=== PATIENT | male | born 2000 | race Two or more races ===

== ENCOUNTER 2020-06-25 11:47 | Emergency (ER) | payer OTHER, SELFPAY ==
--- NOTE | 2020-06-25 | ECG_ITS ---
Test Reason : ATHSMA Blood Pressure : / mmHG Vent. Rate : 077 BPM Atrial Rate : 077 BPM P-R Int : 154 ms QRS Dur : 094 ms QT Int : 344 ms P-R-T Axes : 025 067 026 degrees QTc Int : 389 ms Normal sinus rhythm with sinus arrhythmia RSR' or QR pattern in V1 suggests right ventricular conduction delay Otherwise normal ECG When compared with ECG of 21-DEC-2006 14:40, PREVIOUS ECG IS PRESENT pt was 6yo Referred By: David Hargrove Electronically Signed By:FAN ZEPEDA MD
--- NOTE | 2020-06-25 | XR_ITS ---
EXAMINATION: XR CHEST CLINICAL INFORMATION: Cough and chills. History of asthma. COMPARISON: Previous chest x-rays most recent November 2019 TECHNIQUE: 2 views of the chest were obtained. FINDINGS: No significant abnormality is noted involving the heart, lungs, mediastinum, bony thorax or soft tissues. IMPRESSION: Unremarkable examination.
[2020-06-25 11:56] VITALS: BP 145/89; PULSE 92; RESP 18; TEMP 37.5; O2SAT 97; BMI 43.3
--- NOTE | 2020-06-25 12:21 | ED.ASTHMA ---
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 Positive chills but no fever. No recent travel. No recent antibiotic. No recent hospitalization. MD complaint: asthma attack , shortness of breath and wheezing Onset (ago): day(s) Context: recent URI Associated symptoms: productive cough Asthma History: history of frequent attacks and history of prior ED visit Treatments Prior to Arrival: inhaled bronchodilator Related Data Current Asthma Therapy: inhaled bronchodilator Home Medications Medication Instructions Recorded Confirmed albuterol sulfate 1 vial INHALATION Q4H PRN 06/25/20 06/25/20 albuterol sulfate 2 puff PO Q4H PRN 06/25/20 06/25/20 fluticasone propion-salmeterol 2 puff PO BID 06/25/20 06/25/20 fluticasone propionate 2 spray INTRANASAL DAILY 06/25/20 06/25/20 inhalational spacing device 06/25/20 06/25/20 [Aerochamber Plus Flow-Vu] Previous Rx's Medication Instructions Recorded benzonatate [Tessalon Perles] 100 mg PO BID PRN #14 cap 06/25/20 prednisone 60 mg PO DAILY 5 Days #15 tab 06/25/20 Allergies Allergy/AdvReac Type Severity Reaction Status Date / Time peach [PEACH] Allergy Unknown ANAPHYLAXIS Unverified 06/04/20 16:55 Review of Systems Review of Systems: Constitutional: No Weight loss, No Fever, + Chills, No Night Sweats, No Fatigue, No Malaise ENT/Mouth: No Hearing loss, No Ear Pain, + Nasal Congestion, No Sinus Pain, No Hoarseness, No sore throat, + Rhinorrhea, No Swallowing Difficulty Eyes: No Eye Pain, No Swelling, No Redness, No Foreign Body, No Discharge, No Vision Changes Cardiovascular: + Chest Pain with cough, No SOB, No Dyspnea on Exertion, No Orthopnea, No Edema, No Palpitations Respiratory: + Cough, + greenish Sputum, + Wheezing, No Smoke Exposure, No Dyspnea Gastrointestinal: No Nausea, No Vomiting, No Diarrhea, No Constipation, No abdominal Pain, No Hematochezia, No Melena Genitourinary: no irregular bleeding, No Dysuria, No Urinary Frequency, No Hematuria, No Urinary Incontinence, No Urgency, No Flank Pain, No Urinary Flow Changes, No Hesitancy Musculoskeletal: No joint pain, No Myalgias, No Joint Swelling Skin: No Skin Lesions, No rash Neuro: No Weakness, No Numbness, No Paresthesias, No Loss of Consciousness, No Dizziness, No Headache Psych: No Anxiety/Panic, No Depression, No SI/HI/AH/VH, No Social Issues, Heme/Lymph: No Bruising, No Bleeding,No Lymphadenopathy Endocrine: No Polyuria, No Polydipsia, No Temperature Intolerance Yes all other systems are reviewed and are negative [facility] Past Medical History Attestation statement: The following information was validated with the patient. Medical History (Updated 06/25/20 @ 15:21 by David Hargrove NP) Asthma Social History Social History Smoked in Last 30 Days: No Advance Directives: No Advance Directives Information Provided: No Physical Exam Vital Signs and I&O and Narrative: Vital Signs and I&O: Vital Signs Temp 99.4 F 06/25/20 14:30 Pulse 102 H 06/25/20 14:30 Resp 16 06/25/20 14:30 BP 129/83 06/25/20 14:30 Pulse Ox 97 06/25/20 11:56 Intake & Output 06/24/20 06/25/20 06/25/20 18:59 06:59 18:59 Weight 118.079 kg Body Mass Index 43.3 Const: General: cooperative, healthy appearing and no acute distress; No intoxicated appearing Nutritional Appearance: overweight Orientation/consciousness: patient oriented x3 HENMT: Head: Yes normal to inspection Ears: hearing grossly normal bilaterally General nose exam: Nasal discharge present Eyes: General: appearance normal, both eyes and all related structures Visual Carroll: normal visual carroll by confrontation Neck: Neck: Yes normal visual inspection and No tender Thyroid: Thyroid normal Chest: Chest palpation & inspection: normal inspection of the chest Resp: Effort & Inspection: normal respiratory effort and Actively coughing Auscultation: wheezes ( Mild diffuse) Cardio: Jugular venous distension: no JVD GI: Inspection: Yes normal to inspection Percussion: Yes normal to percussion Auscultation: normal bowel sounds : General: Yes no CVA tenderness Back/Spine/Pelvis: Back: no CVA tenderness Skin: General skin exam: no rashes or lesions noted Neuro: General: patient oriented x3 Extrem: General: Yes normal to inspection Course Course Course Narrative: feels much better after DuoNeb and prednisone. Lung sounds clear to auscultation. Chest x-ray negative. Lab work otherwise unremarkable. COVID-19 as well as influenza is pending will go home with precaution return follow-up instructions. Prescription of prednisone sent to his pharmacy as well as cough medicine. He has inhaler and nebs at home. Well nontoxic appearing. No signs or symptoms systemic infection. Stable for discharge. MDM - Asthma MDM Narrative Medical decision making narrative: interview 20-year-old male with history of asthma presenting with exacerbation in the setting of recent URI symptoms. According to patient has had numerous hospitalization but not the worst episode today. Will check chest x-ray, basic labs, EKG and treat with nebs, oral steroids. No signs or symptoms of systemic infection. Afebrile. Nontoxic. Pulse ox 98-99% on room air. In no acute distress. Will monitor and dispo per plan. Differential Diagnosis Differential diagnosis: Likely Acute exacerbation, Acute asthmatic bronchitis and Pneumonia; Unlikely Status asthmaticus, PE, COPD exacerbation, Pulmonary edema systolic, Pulmonary edema dystolic, ARDS, Pneumothorax and Foreign body in trachea Medical Records Attestation: I reviewed the patient's medical records. Lab Data Result diagrams: 06/25/20 14:56 06/25/20 12:57 Labs: Lab Results 06/25/20 06/25/20 06/25/20 Range/Units 12:57 12:57 14:56 WBC 9.9 (4.8-10.8) X10*3/uL RBC 5.16 (4.60-5.80) X10*6/uL Hgb 15.4 (14.0-18.0) g/dl Hct 46.3 (42-52) % MCV 89.7 (80-98) fL MCH 29.8 (27.0-33.0) pg MCHC 33.3 (31.0-36.0) g/dl RDW 13.9 (11.0-16.0) % Plt Count 358 (160-400) X10*3/uL MPV 10.1 (9.4-12.4) fL Immature Gran % (Auto) 0.4 (0.0-0.4) % Neut % (Auto) 75.5 H (45-73) % Lymph % (Auto) 13.5 L (20-40) % Bulloch % (Auto) 4.1 (2-11) % Eos % (Auto) 5.9 H (0-4) % Baso % (Auto) 0.6 (0-2) % Lymph # (Auto) 1.3 (1.2-4.9) X10*3/uL Bulloch # (Auto) 0.4 (0.1-1.2) X10*3/uL Eos # (Auto) 0.6 H (0.0-0.4) X10*3/uL Baso # (Auto) 0.1 (0.0-0.2) X10*3/uL Abs Immat Gran (auto) 0.04 H (0.00-0.03) X10*3/uL Absolute Neuts (auto) 7.5 (2.0-8.3) X10*3/uL Absolute Nucleated RBC 0.000 (0.0-0.012) X10*3/uL Nucleated RBC % (auto) 0.0 (0.0-0.2) /100WBC Sodium 138 (135-145) mmol/L Potassium 4.6 (3.3-5.1) mmol/l Chloride 106 (96-108) mmol/L Carbon Dioxide 24 (22-29) mmol/L Anion Gap 13 (12-20) BUN 11 (9-16) mg/dL Creatinine 0.79 (0.5-1.4) mg/dL Estim Creat Clear Calc 177.4 Estimated GFR > 60 Random Glucose 103 (60-115) mg/dL Calcium 9.5 (8.4-10.2) mg/dL Troponin I High Sens < 3.5 (<3.5-35.0) ng/L Imaging Data Chest x-ray: Radiologist's impression: impression unremarkable examination Radiologist Dr. Tabares Discharge Plan Discharge Clinical Impression: Viral syndrome Asthma with acute exacerbation Qualifiers: Asthma severity: unspecified severity Asthma persistence: unspecified Qualified Code(s): J45.901 - Unspecified asthma with (acute) exacerbation Patient Disposition: Home, Self-Care Instructions: Asthma (ED) Additional Instructions: Based on your symptoms and history we have sent a COVID-19. Although your RESULT IS PENDING at this time. RESULTS should return within 72 hours. At this time you will be contacted with either NEGATIVE OR POSITIVE results. -Please wait until we contact you for your results. At this time you will be okay for discharge. Please plan for self quarantine for up to 14 days. Do not expose yourself to others. You may not go to work. If testing does come back negative you may return to activities as long as you are no longer having any symptoms for at least 3 days. Please continue to follow cold instructions and wash your hands frequently. You may take Tylenol as directed on the bottle for pain or fever. Patient seen in the emergency department on 03/13/2020 and should be excused from work until negative test results AND until 72 hours without any symptoms AND at least 10 days have passed since symptoms first appeared or since last exposure to COVID-19 positive patient CDC Guidelines for home isolation: - Stay away from others - WEAR A MASK if you are sick AND STAY HOME - Cover your mouth and nose with a tissue when you cough or sneeze. Dispose of tissues in a lined trash can and wash your hands immediately with soap and water for at least 20 seconds. If soap and water are not available, clean hands with alcohol-based hand residential child care counselor that contains at least 60% alcohol. - Clean your hands often with soap and water for at least 20 seconds - Avoid touching your eyes, nose and mouth with unwashed hands - Do not share dishes, drinking glasses, cups, eating utensils, towels, or bedding with other people in your home. After using these items, wash them thoroughly with soap and water or put in the tentering machine feeder. - Clean high-touch surfaces in your isolation area ( sick room and bathroom) every day; let a caregiver clean and disinfect high-touch surfaces in other areas of the home. Clean the area or item with soap and water or another detergent if it is dirty. Then, use a household disinfectant. - Limit contact with pets and animals: If you must care for a pet, wash your hands before and after interacting with them Prescriptions: New prednisone 20 mg tablet 60 mg PO DAILY 5 Days Qty: 15 RF: 0 benzonatate [Tessalon Perles] 100 mg capsule 100 mg PO BID PRN (Reason: cough) Qty: 14 RF: 0 No Action albuterol sulfate 2.5 mg /3 mL (0.083 %) solution for nebulization 1 vial inhalation Q4H PRN (Reason: wheezing) RF: 0 albuterol sulfate 90 mcg/actuation HFA aerosol inhaler 2 puff PO Q4H PRN (Reason: wheezing) RF: 0 fluticasone propionate 50 mcg/actuation spray,suspension 2 spray intranasal DAILY RF: 0 (DME) Aerochamber Plus Flow-Vu Spacer MISCELLANEOUS DIRECTED RF: 0 fluticasone propion-salmeterol 232-14 mcg/actuation aerosol powdr breath activated 2 puff PO BID RF: 0 Referrals: Mich Larry MD [Primary Care Provider] - 2 days
[2020-06-25] MEDS: predniSONE 20 MG TABLET 60 MG PO (12:58)
[2020-06-25 13:39] LABS: Anion Gap 13 (12-20); Blood Urea Nitrogen 11 mg/dL (9-16); Calcium 9.5 mg/dL (8.4-10.2); Carbon Dioxide 24 mmol/L (22-29); Chloride 106 mmol/L (96-108); Creatinine Clr Calc Pharmacy 177.4; Estimated Glomerular Filt Rate > 60; Glucose Random 103 mg/dL (60-115); Potassium 4.6 mmol/l (3.3-5.1); Sodium 138 mmol/L (135-145)
[2020-06-25] MEDS: Albuterol/Iprat 2.5/0.5MG 3 ML AMPUL.NEB INHALE (13:45)
[2020-06-25 13:47] LABS: Troponin-I High Sensitivity < 3.5 ng/L (<3.5-35.0)
[2020-06-25 14:30] VITALS: BP 129/83; PULSE 102; RESP 16; TEMP 37.4
[2020-06-25 15:02] LABS: MANUAL DIFF FLAG NO
[2020-06-25 15:06] LABS: Basophils Absolute Auto 0.1 X10*3/uL (0.0-0.2); Basophils Percent Auto 0.6 % (0-2); Eosinophils Absolute Auto 0.6 X10*3/uL (0.0-0.4); Eosinophils Percent Auto 5.9 % (0-4); Hematocrit 46.3 % (42-52); Hemoglobin 15.4 g/dl (14.0-18.0); Imm Gran Abs Auto 0.04 X10*3/uL (0.00-0.03); Imm Gran Pct Auto 0.4 % (0.0-0.4); Lymphocytes Absolute Auto 1.3 X10*3/uL (1.2-4.9); Lymphocytes Percent Auto 13.5 % (20-40); Mean Corpuscular HGB Conc 33.3 g/dl (31.0-36.0); Mean Corpuscular Hemoglobin 29.8 pg (27.0-33.0); Mean Corpuscular Volume 89.7 fL (80-98); Mean Platelet Volume 10.1 fL (9.4-12.4); Monocytes Absolute Auto 0.4 X10*3/uL (0.1-1.2); Monocytes Percent Auto 4.1 % (2-11); Neutrophils Absolute Auto 7.5 X10*3/uL (2.0-8.3); Neutrophils Percent Auto 75.5 % (45-73); Platelet Count 358 X10*3/uL (160-400); Red Blood Count 5.16 X10*6/uL (4.60-5.80); Red Cell Distribution Width 13.9 % (11.0-16.0); White Blood Count 9.9 X10*3/uL (4.8-10.8)
[2020-06-25 16:16] LABS: Influenza A PCR NEGATIVE (Negative); Influenza B PCR NEGATIVE (Negative)
[2020-06-25 16:17] LABS: Resp Syncy Virus RNA Qual PCR NEGATIVE (Negative)
== END 2020-06-25 15:42 | disposition home or self-care (01) ==
PROVIDERS: Nurse Practitioner Primary Care; Emergency Provider Internal Medicine; PCP Pediatrics
DX: B34.9 Viral infection, unspecified (principal); J45.901 Unspecified asthma with (acute) exacerbation; Z20.828 Contact with and (suspected) exposure to other viral communicable diseases; Z79.899 Other long term (current) drug therapy
CPT/HCPCS: 36415; 71046; 80048; 84484; 85025; 87631; 87635; 93005; 99284

== ENCOUNTER 2021-03-20 16:50 | Emergency (ER) | payer OTHER, SELFPAY ==
[2021-03-20 16:57] VITALS: BP 148/98; PULSE 93; RESP 18; TEMP 36.4; O2SAT 97; BMI 44.9
--- NOTE | 2021-03-20 17:30 | ED.GENADULT ---
HPI - General Adult General Chief complaint: General Medical Stated complaint: Rash Time Seen by Provider: 03/20/21 17:30 History of Present Illness HPI narrative: patient complains of itchy rash on both arms and somewhat on the legs, he saw primary doctor thought it was poison beny prescribed calamine lotion and now the rash is un improved and rash and itchiness or worse Related Data Home Medications Medication Instructions Recorded Confirmed albuterol sulfate 1 vial INHALATION Q4H PRN 06/25/20 06/25/20 albuterol sulfate 2 puff PO Q4H PRN 06/25/20 06/25/20 fluticasone propion-salmeterol 2 puff PO BID 06/25/20 06/25/20 fluticasone propionate 2 spray INTRANASAL DAILY 06/25/20 06/25/20 inhalational spacing device 06/25/20 06/25/20 [Aerochamber Plus Flow-Vu] Previous Rx's Medication Instructions Recorded benzonatate [Tessalon Perles] 100 mg PO BID PRN #14 cap 06/25/20 prednisone 60 mg PO DAILY 5 Days #15 tab 06/25/20 cetirizine 10 mg PO DAILY PRN #14 cap 03/20/21 hydrocortisone 1 appl TOPICAL BID PRN #20 g 03/20/21 prednisone 40 mg PO DAILY 4 Days #8 tab 03/20/21 Allergies Allergy/AdvReac Type Severity Reaction Status Date / Time peach [PEACH] Allergy Severe ANAPHYLAXIS Verified 03/20/21 16:56 Review of Systems Review of Systems: Positive for itchy rash on arms and legs Negatives are no fever no chills no dizziness or weakness no feeling faint no headache no neck pain no difficulty breathing and swallowing no shortness of breath no throat swelling no joint swelling Yes all other systems are reviewed and are negative PMFSH Past Medical History Source: nursing notes reviewed Medical History (Updated 03/21/21 @ 00:01 by Mickie Monroe) Asthma Social History Social History Advance Directives: No Advance Directives Information Provided: Yes Physical Exam Vital Signs: Vital Signs: Last Vital Signs Temp 97.6 F 03/20/21 16:57 Pulse 93 03/20/21 16:57 Resp 18 03/20/21 16:57 BP 148/98 H 03/20/21 16:57 Pulse Ox 97 03/20/21 16:57 Body Mass Index 44.9 General appearance no acute distress The eyes are not read no discharge The pharynx is clear with moist mucous membranes no swelling no exudate, voice is normal no redness no difficulty breathing or swallowing Neck is supple The chest is clear to auscultation bilateral no respiratory distress Heart no murmur Extremities full range of motion x4 Skin there is a linear vesicular rash on both arms with some excoriation, some mild rash on the legs as well Course Course Course Narrative: Rashes likely poison beny and patient is started on prednisone as symptoms have been worsening and getting more itchy and uncomfortable Well-appearing patient is discharged to follow with primary care Discharge Plan Discharge Clinical Impression: Dermatitis Patient Disposition: Home, Self-Care Additional Instructions: we are doing 4 days of steroid and Zyrtec for the rash Sometimes after the prednisone is done the rash may rebound so follow with primary doctor if that is the case for a longer does Return any time any worse condition Prescriptions: New cetirizine 10 mg capsule 10 mg PO DAILY PRN (Reason: rash and itch) Qty: 14 RF: 0 prednisone 20 mg tablet 40 mg PO DAILY 4 Days Qty: 8 RF: 0 hydrocortisone 2.5 % cream 1 appl topical BID PRN (Reason: itching) Qty: 20 RF: 0 No Action albuterol sulfate 2.5 mg /3 mL (0.083 %) solution for nebulization 1 vial inhalation Q4H PRN (Reason: wheezing) RF: 0 albuterol sulfate 90 mcg/actuation HFA aerosol inhaler 2 puff PO Q4H PRN (Reason: wheezing) RF: 0 fluticasone propionate 50 mcg/actuation spray,suspension 2 spray intranasal DAILY RF: 0 (DME) Aerochamber Plus Flow-Vu Spacer MISCELLANEOUS DIRECTED RF: 0 fluticasone propion-salmeterol 232-14 mcg/actuation aerosol powdr breath activated 2 puff PO BID RF: 0 prednisone 20 mg tablet 60 mg PO DAILY 5 Days Qty: 15 RF: 0 benzonatate [Tessalon Perles] 100 mg capsule 100 mg PO BID PRN (Reason: cough) Qty: 14 RF: 0 Interventions: ED Discharge Assessment Last Done: 03/20/21 17:55 Discharge Date/Time: 03/20/21 17:55
[2021-03-20] MEDS: predniSONE 20 MG TABLET 60 MG PO (17:53)
== END 2021-03-20 17:55 | disposition home or self-care (01) ==
PROVIDERS: Emergency Provider Internal Medicine; PCP Pediatrics
DX: L30.9 Dermatitis, unspecified (principal); J45.909 Unspecified asthma, uncomplicated; Z79.899 Other long term (current) drug therapy
CPT/HCPCS: 99283

== ENCOUNTER → 2021-12-29 09:38 | Outpatient (REF) | payer OTHER, SELFPAY ==
--- NOTE | 2021-12-29 09:43 | ECG_ITS ---
Test Reason : PRIMARY HYPERTENSION Blood Pressure : / mmHG Vent. Rate : 080 BPM Atrial Rate : 080 BPM P-R Int : 156 ms QRS Dur : 096 ms QT Int : 360 ms P-R-T Axes : 045 071 035 degrees QTc Int : 415 ms Normal sinus rhythm Normal ECG When compared with ECG of 25-JUN-2020 12:29, No significant change was found Referred By: Mich Larry Electronically Signed By:Hi Justice
== END ==
LOC: HO.CARD 09:38
PROVIDERS: PCP Pediatrics; Visit Provider Pediatrics
DX: I10 Essential (primary) hypertension (principal)
CPT/HCPCS: 93005

== ENCOUNTER 2023-06-08 10:32 | Emergency (ER) | payer OTHER, SELFPAY ==
--- NOTE | ~2023-06-08 | XR_ITS ---
EXAMINATION: XR CHEST CLINICAL INFORMATION: Shortness of breath and wheezing 06/25/2020 COMPARISON: None available. TECHNIQUE: Frontal view of the chest was obtained. FINDINGS: No significant abnormality is noted involving the heart, lungs, mediastinum, bony thorax or soft tissues. XR/XR chest 1V IMPRESSION: Unremarkable examination.
[2023-06-08 10:34] VITALS: BP 165/109; PULSE 110; RESP 19; TEMP 36.8; O2SAT 96; BMI 48.8
--- NOTE | 2023-06-08 11:07 | ED_ITS ---
HPI - Asthma General Chief Complaint: Upper Respiratory Symptoms Stated Complaint: asthma Time Seen by Provider: 06/08/23 11:00 Source: patient and family Mode of arrival: ambulatory Limitations: no limitations History of Present Illness HPI Narrative: 22 yo male with history of asthma presents to the ER for evaluation of SOB and wheezing that started 3 days ago. Unclear what triggers his asthma but he states it usually is the changes in the weather or environmental factors. He has been coughing and having tightness in his chest. No phelgm production. He usually only uses his albuterol inhaler as needed and recently ran out. No fever or chills. No known sick contacts. MD complaint: asthma attack , shortness of breath and wheezing Onset (ago): day(s) (3) Severity: moderate Context: ran out of meds and other (environment, change of weather) Associated symptoms: dry cough Asthma History: childhood onset Treatments Prior to Arrival: inhaled bronchodilator Related Data Current Asthma Therapy: inhaled bronchodilator Home Medications Medication Instructions Recorded Confirmed albuterol sulfate 2.5 mg/3 mL 1 vial inhalation Q4H PRN wheezing 06/25/20 06/25/20 (0.083 %) solution for nebulization albuterol sulfate 90 mcg/actuation 2 puff PO Q4H PRN wheezing 06/25/20 06/25/20 aerosol inhaler fluticasone 232 mcg-salmeterol 14 2 puff PO BID 06/25/20 06/25/20 mcg/actuation breath activated powdr fluticasone propionate 50 2 spray intranasal DAILY 06/25/20 06/25/20 mcg/actuation nasal spray,suspension inhalational spacing device 06/25/20 06/25/20 (Aerochamber Plus Flow-Vu) Previous Rx's Medication Instructions Recorded benzonatate 100 mg capsule 100 mg PO BID PRN cough #14 caps 06/25/20 (Osei Garcia) prednisone 20 mg tablet 60 mg (3 x 20 mg) PO DAILY 5 days 06/25/20 #15 tabs cetirizine 10 mg capsule 10 mg PO DAILY PRN rash and itch 03/20/21 #14 caps hydrocortisone 2.5 % topical cream 1 appl topical BID PRN itching #20 03/20/21 grams prednisone 20 mg tablet 40 mg (2 x 20 mg) PO DAILY 4 days 03/20/21 #8 tabs levalbuterol HCl 0.63 mg/3 mL 0.63 mg (3 mL) inhalation Q8H PRN 06/08/23 solution for nebulization shortness of breath or wheezing #72 mL prednisone 10 mg tablets in a dose See Taper PO DAILY #48 ea 06/08/23 pack Allergies Allergy/AdvReac Type Severity Reaction Status Date / Time peach [PEACH] Allergy Severe ANAPHYLAXIS Verified 06/08/23 10:34 Review of Systems Review of Systems: Yes all other systems are reviewed and are negative [facility] Past Medical History Medical History (Updated 06/08/23 @ 12:22 by SHI Doran) Asthma Social History Social History Advance Directives: No Physical Exam Vital Signs: Vital Signs: Last Vital Signs Temp 98.3 F 06/08/23 10:34 Pulse 88 06/08/23 11:26 Resp 16 06/08/23 11:26 BP 165/109 H 06/08/23 10:34 Pulse Ox 96 06/08/23 10:34 O2 Del Method Room Air 06/08/23 10:34 BMI result Body Mass Index 48.8 Appearance: Alert. Oriented X3. No acute distress. Head: normocephalic, atraumatic. Eyes: Pupils equal, round and reactive to light. ENT: Pharynx normal. No tonsillar swelling or exudate. Neck: Normal inspection. Neck supple. CVS: Tachycardic, regular rhythm. Pulses normal. Respiratory: No respiratory distress. Breath sounds with diffuse expiratory wheezes throughout, prolonged expiratory phase, no accessory muscle use Abdomen: Soft and nontender. +BS x4 Skin: Skin warm and dry. Normal skin color. Normal skin turgor. No rashes. Extremities: No lower extremity edema. No joint swelling. Neuro/psych: Oriented X 3. No motor deficit. No sensory deficit. CN II-XII intact. Normal speech and cognition. Medications Administered Discontinued Medications Generic Name Dose Route Start Last Admin Trade Name Freq PRN Reason Stop Dose Admin Albuterol Sulfate 2 puff 06/08/23 11:55 06/08/23 12:00 Albuterol Sulfate 90 Mcg 8 Gm Inhaler INHALE 06/08/23 11:56 2 puff ONCE ONE Administration Levalbuterol HCl 2.5 mg 06/08/23 11:18 06/08/23 11:28 Levalbuterol Hcl 1.25 Mg/3 Ml Vial.Neb INHALE 06/08/23 11:19 Not Given ONCE ONE Levalbuterol HCl 5 mg 06/08/23 11:21 06/08/23 11:25 Levalbuterol Hcl 1.25 Mg/3 Ml Vial.Neb INHALE 06/08/23 11:22 5 mg ONCE ONE Administration Prednisone 60 mg 06/08/23 11:17 06/08/23 11:22 Prednisone 20 Mg Tablet PO 06/08/23 11:18 60 mg ONCE ONE Administration Medical Decision Making Medical Decision Making MDM Narrative: 22 yo male presenting with asthma exacerbation x3 days. saturating well, breat everette comfortably but wheezy throughout. bronch protocol started - given xopenex and prednisone viral studies and CXR negative reassessed and wheezing significantly improved. comfortable w/ discharge home w/ prednisone and nebs. return precautions discussed Differential Diagnosis Differential Diagnoses: The differential diagnosis associated with the presentation includes acute asthma exacerbation, status asthmaticus, bronchitis, PNA, viral illness, environmental allergies Admission/Observation Consideration of admission/observation: Escalation of care including admission/observation considered Lab Data [facility] Lab Attestation statement: I reviewed the patient's lab results. Labs: Lab Results 06/08/23 Range/Units 11:12 Influenza Type A (PCR) NEGATIVE (Negative) Influenza Type B (PCR) NEGATIVE (Negative) RSV RNA Qual (PCR) NEGATIVE (Negative) SARS-CoV-2 RNA (RT-PCR) NEGATIVE (Negative) Independent Interpretation I performed an independent interpretation of an: Plain X-Ray Interpretation: no focal infiltrate or effusion Radiology Impression Discussion of test interpretation with radiology: I have reviewed the radiologist's reading. Radiologist Impression: EXAMINATION: XR CHEST CLINICAL INFORMATION: Shortness of breath and wheezing 06/25/2020 COMPARISON: None available. TECHNIQUE: Frontal view of the chest was obtained. FINDINGS: No significant abnormality is noted involving the heart, lungs, mediastinum, bony thorax or soft tissues. XR/XR chest 1V IMPRESSION: Unremarkable examination. Independent Historian Clinical information obtained from an independent historian. History obtained from or confirmed by: Parent External Record Review External record reviewed: Outpatient record, Prior outpatient labs and Prior outpatient radiology Prescription Management I considered prescription management with: Antibiotic and Other ( bronchodilator and steroid) Chronic Conditions Patient?s care impacted by: Other ( asthma) Critical Care Time Critical Care Time Critical Care Time: No Discharge Plan Discharge Clinical Impression: Asthma Qualifiers: Asthma severity: mild Asthma persistence: intermittent Asthma complication type: with acute exacerbation Qualified Code(s): J45.21 - Mild intermittent asthma with (acute) exacerbation Patient Disposition: Home, Self-Care Instructions: Asthma (DC) Additional Instructions: your x-ray did not show any obvious pneumonia, radiology read is still pending at the time of discharge. You tested negative for COVID, flu, RSV. Take the prescribed steroid taper as directed, start 1st thing tomorrow morning, your given 1st dose today in the emergency department. Use the albuterol nebulizers and inhaler as directed. Recommend following up with your primary care doctor and a qualifications examiner for further evaluation and treatment of your asthma. If you develop new or worsening symptoms call 911 or come back to the ER for further evaluation. Prescriptions: New levalbuterol HCl 0.63 mg/3 mL solution for nebulization 0.63 mg inhalation Q8H PRN (Reason: shortness of breath or wheezing) Qty: 72 0RF prednisone 10 mg tablets,dose pack See Taper PO DAILY Qty: 48 0RF Taper: Prednisone 40 mg daily for 3 Days and 0 Hour 30 mg daily for 3 Days and 0 Hour 20 mg daily for 3 Days and 0 Hour 10 mg daily for 3 Days and 0 Hour No Action albuterol sulfate 2.5 mg /3 mL (0.083 %) solution for nebulization 1 vial inhalation Q4H PRN (Reason: wheezing) albuterol sulfate 90 mcg/actuation HFA aerosol inhaler 2 puff PO Q4H PRN (Reason: wheezing) fluticasone propionate 50 mcg/actuation spray,suspension 2 spray intranasal DAILY (DME) Aerochamber Plus Flow-Vu Spacer MISCELLANEOUS DIRECTED fluticasone propion-salmeterol 232-14 mcg/actuation aerosol powdr breath activated 2 puff PO BID prednisone 20 mg tablet 60 mg PO DAILY 5 Days Qty: 15 0RF benzonatate [Tessalon Perles] 100 mg capsule 100 mg PO BID PRN (Reason: cough) Qty: 14 0RF cetirizine 10 mg capsule 10 mg PO DAILY PRN (Reason: rash and itch) Qty: 14 0RF prednisone 20 mg tablet 40 mg PO DAILY 4 Days Qty: 8 0RF hydrocortisone 2.5 % cream 1 appl topical BID PRN (Reason: itching) Qty: 20 0RF Referrals: [facility] [place] Pulmonology Services [Provider Group] (mild intermittent asthma requiring ER visit) Interventions: ED Discharge Assessment Last Done: 06/08/23 13:36 Discharge Date/Time: 06/08/23 13:36
[2023-06-08] MEDS: predniSONE 20 MG TABLET 60 MG PO (11:22)
[2023-06-08] MEDS: levalbuterol HCL 1.25 MG/3 ML VIAL.NEB 5 MG INHALE (11:25)
[2023-06-08 11:26] VITALS: PULSE 88; RESP 16; O2SAT 97
[2023-06-08 11:55] LABS: Influenza A PCR NEGATIVE (Negative); Influenza B PCR NEGATIVE (Negative); Resp Syncy Virus RNA Qual PCR NEGATIVE (Negative); SARS COV2 PCR INHOUSE NEGATIVE (Negative)
[2023-06-08] MEDS: Albuterol Sulfate 90 MCG 8 GM INHALER 2 PUFF INHALE (12:00)
== END 2023-06-08 13:36 | disposition home or self-care (01) ==
PROVIDERS: Physician Assistant; Emergency Provider Emergency Medicine
DX: J45.21 Mild intermittent asthma with (acute) exacerbation (principal); R06.02 Shortness of breath; Z20.822 Contact with and (suspected) exposure to COVID-19; Z20.828 Contact with and (suspected) exposure to other viral communicable diseases; Z79.899 Other long term (current) drug therapy
CPT/HCPCS: 0241U; 71045; 94640; 99283; 99284

== ENCOUNTER 2023-07-21 11:10 | Outpatient (AMB) | payer OTHER, SELFPAY ==
[2023-07-21 11:12] VITALS: BP 112/80; PULSE 90; O2SAT 97; BMI 44.3
--- NOTE | 2023-07-21 11:12 | MHC.PC.OV ---
Vital Signs 07/21/23 11:12 Height 5 ft 4 in Weight 258 lb 0.8 oz BMI 44.3 BP 112/80 Blood Pressure Location Lt brachial Position Sitting Pulse 90 Pulse Source Pulse Oximeter Pulse Oximetry (%) 97 Oxygen Delivery Method Room Air Intake Visit Reasons: [facility] [place] 06/08 F/U- asthma Intake Note: Patient is here to follow-up after a visit the emergency department at [facility] on 06/08/2023 for asthma Egg Grader Required: No Allergies peach [PEACH] Allergy (Severe, Verified 07/21/23 11:18) ANAPHYLAXIS Tobacco use date assessed: 07/21/23 Dental Screening Dental Screen Date: 07/21/23 Did you have a dental visit in the last 12 months?: Yes Did you have a dental problem in the last 6 months where you did not have access to dental care?: No Was dental information given to patient?: Patient has dentist HPI HPI Comments History of Present Illness Details 23-year-old male new patient, past medical history significant for asthma, seasonal allergy, vitamin-D deficiency. Previous patient [facility] not had a primary care provider a few years. Patient presents today for emergency room follow-up for shortness of breath and wheezing x3 day. It was unclear what triggered patient's asthma, however patient reports usually changes season or environmental factors can exacerbate his asthma. Chest x-ray unremarkable. Denied any sick contacts. Patient presents today to this appointment with his mother who reports patient previously on Advair HFA b.i.d. daily as well as uses Xopenex rescue inhaler and nebulizer solution as he has a history of tachycardia cause by using albuterol. Mom states that he ran out of his medications 1 year ago however patient has been using mom Xopenex inhaler 1-2 times daily as needed for shortness of breath and wheezing. Patient also requesting refill on loratadine for allergies. All refill sent to patient's pharmacy. Referral entered to establish care with pulmonology. [facility] Medical History (Updated 07/21/23 @ 11:35 by LUISITO Khan) Tachycardia Seasonal allergies Asthma Social History Patient Tobacco Use Status: Never used Tobacco Cognitive needs: No Hearing needs: No Vision needs: No Questionnaire PHQ-9 Over the last 2 weeks, how often have you been bothered by any of the following problems? 1. Little interest or pleasure in doing things: not at all 2. Feeling down, depressed, or hopeless: not at all 3. Trouble falling or staying asleep, or sleeping too much: not at all 4. Feeling tired or having little energy: not at all 5. Poor appetite or overeating: not at all 6. Feeling bad about yourself - or that you are a failure or have let yourself or your family down: not at all 7. Trouble concentrating on things, such as reading the newspaper or watching television: not at all 8. Moving or speaking so slowly that other people could have noticed. Or the opposite - being so fidgety or restless that you have been moving around a lot more than usual: not at all 9. Thoughts that you would be better off or of hurting yourself in some way: not at all Total score: 0 Depression Screening Interpretation: Negative Depression Screening Done: Yes Source: Developed by Drs. Noah Castro, Kirsty Stevenson, Rhett Waddell and colleagues, with an educational nicole from [employer]. Thrive Questionnaire Date Thrive assessed: 07/21/23 I am a: Patient What is your living situation today?: I have a steady place to live Within the past 12 months, did the food you bought not last and you didn't have the money to get more?: Never true Within the past 12 months, did you worry whether your food would run out before you got money to buy more?: Never true Do you have trouble paying for medicines?: No Do you have trouble getting transportation to medical appointments?: No Do you have trouble paying your heating and electricity bill?: No Do you have trouble taking care of your child, family member or friend?: No Do you have trouble with day-to-day activities such as bathing, preparing meals, shopping, managing finances, etc.?: No Are you currently unemployed and looking for a job?: No Are you interested in more education?: No AUDIT C Alcohol Use Questionnaire (AUDIT-C) 1. How often do you have a drink containing alcohol?: Never 3. How often do you have six or more drinks on one occasion?: Never Total Score: 0 CUCO-7 AMB Questionnaire CUCO-7 Date CUCO - 7 assessed: 07/21/23 Feeling nervous, anxious, or on edge: 0 = Not at all Not being able to stop or control worryin = Not at all Worrying too much about different things: 0 = Not at all Trouble relaxin = Not at all Being so restless that it is hard to sit still: 0 = Not at all Becoming easily annoyed or irritable: 0 = Not at all Feeling afraid as if something awful might happen: 0 = Not at all Total CUCO-7 score (0-4 normal; 5-9 mild; 10-14 moderate; 15-21 severe): 0 Source: Developed by Drs. Noah Castro, Kirsty Stevenson, Rhett Waddell and colleagues, with an educational nicole from [employer]. Review of Systems Const Denies chills, Denies fatigue, Denies fever(s) and Denies poor appetite Eyes Denies no additional complaints ENT Reports Normal hearing present Card Denies chest pain, Denies syncope, Denies rapid heart rate and Reports dyspnea Resp Denies cough, Reports dyspnea and Reports wheezing GI Denies change in stool character, Denies constipation, Denies diarrhea, Denies nausea and Denies vomiting Denies dysuria, Denies urinary frequency and Denies urinary urgency Neuro Reports Normal hearing present, Denies confusion and Denies syncope Psych Denies confusion Endo Denies fatigue Aller/Immun Reports wheezing Physical exam (Primary Care) Vital Signs: Last Vital Signs Pulse 90 07/21/23 11:12 BP 112/80 07/21/23 11:12 Pulse Ox 97 07/21/23 11:12 Oxygen Delivery Method Room Air 07/21/23 11:12 BMI result Body Mass Index 44.3 Tobacco/Smoking Status: Tobacco use Status Tobacco use date assessed 07/21/23 07/21/23 11:13 Patient Tobacco Use Status Never used Tobacco 07/21/23 11:13 PHQ-9: PHQ-9 Score PHQ-9: Total score 0 07/21/23 11:27 Depression Screening Interpretation: Negative Thrive Assessment: Date of Thrive Assessment Date Thrive assessed 07/21/23 07/21/23 11:13 Const General: No confusion Orientation/consciousness: No confusion HENMT Head: Yes normocephalic and Yes atraumatic Eyes Conjunctivae: conjunctivae normal Chest Chest palpation & inspection: normal inspection of the chest Resp Effort & Inspection: normal respiratory effort and Actively coughing Quality: dry Auscultation: clear to auscultation bilaterally, no crackles, no rhonchi and wheezes expiratory wheezes, left upper and upper bilaterally Cardio Rate: regular rate Rhythm: regular rhythm Heart sounds: S1 normal heart sound present and S2 normal heart sound present GI Inspection: Yes normal to inspection Neuro General: No confusion Cranial nerves: Yes Normal hearing present Extrem General: No edema Assessment and Plan Assessment & Plan (1) Asthma: Code(s): J45.909 - Unspecified asthma, uncomplicated Plan: Refill sent on Advair inhaler b.i.d., Xopenex rescue inhaler as well as nebulizer solution. Referral entered to pulmonology. (2) Vitamin D deficiency: Code(s): E55.9 - Vitamin D deficiency, unspecified Plan: Vitamin-D supplementation sent to patient's pharmacy. Plan Keep scheduled new patient appointment in 2 months. Medications: New cholecalciferol (vitamin D3) 25 mcg PO DAILY 30 caps 0RF levalbuterol tartrate 45 mcg/actuation (Xopenex HFA) 2 puffs inhalation Q4-6H PRN 15 grams 0RF shortness of breath E55.9 - Vitamin D deficiency, unspecified, J30.2 - Other seasonal allergic rhinitis, R00.0 - Tachycardia, unspecified fluticasone propionate 50 mcg/actuation 2 sprays intranasal DAILY 16 grams 0RF loratadine (Allergy Relief (loratadine)) 10 mg PO DAILY 30 tabs 3RF fluticasone propion-salmeterol 45-21 mcg/actuation (Advair HFA) 2 puffs inhalation BID 12 grams 0RF J45.909 - Unspecified asthma, uncomplicated Refilled levalbuterol HCl 0.63 mg (3 mL) inhalation Q8H PRN 90 mL 0RF shortness of breath or wheezing Discontinued cetirizine Discontinued Reason: Patient no longer taking 10 mg PO DAILY PRN 14 caps 0RF rash and itch Coding Level of Care Code New Pt Level 3 (17958) Diagnoses Asthma J45.909 Vitamin D deficiency E55.9
== END 2023-07-21 11:41 | disposition home or self-care (01) ==
PROVIDERS: PCP Physician Assistant; Visit Provider Nurse Practitioner Family
DX: J45.909 Unspecified asthma, uncomplicated (principal); E55.9 Vitamin D deficiency, unspecified
CPT/HCPCS: 99203

== ENCOUNTER 2023-08-09 22:18 | Emergency (ER) | payer OTHER, SELFPAY ==
[2023-08-09 22:25] VITALS: BP 146/86; BP 158/104; PULSE 110; PULSE 120; RESP 20; TEMP 37.1; O2SAT 99; BMI 45.1
--- NOTE | 2023-08-09 22:43 | ED_ITS ---
HPI - Asthma General Chief Complaint: Dyspnea Stated Complaint: SOB, HX ASTHMA,NO RELIEF AFTER BREATHING TREATMENT Time Seen by Provider: 08/09/23 22:35 Source: patient Mode of arrival: EMS Limitations: no limitations History of Present Illness HPI Narrative: 23 yo male with PMH of asthma on prednisone 3 weeks ago - was cooking with mom giovanni at home and around people smoking, woke up 1 hour ago with wheezing and chest tightness tried INH and neb no relief. EMS gave treatment with some improvement and 125mg solumedrol. No recent URI or infectious symptoms. No prior intubations as adult (was in NICU as a baby.) MD complaint: asthma attack and shortness of breath Onset (ago): hour(s) (2) Severity: moderate Context: smoke exposure Associated symptoms: dry cough Asthma History: childhood onset Treatments Prior to Arrival: inhaled bronchodilator and IV steroid Related Data Home Medications Medication Instructions Recorded Confirmed inhalational spacing device 06/25/20 06/25/20 (Aerochamber Plus Flow-Vu) Previous Rx's Medication Instructions Recorded hydrocortisone 2.5 % topical cream 1 appl topical BID PRN itching #20 03/20/21 grams cholecalciferol (vitamin D3) 25 25 mcg PO DAILY #30 caps 07/21/23 mcg (1,000 unit) capsule fluticasone propionate 45 2 puff inhalation BID #12 grams 07/21/23 mcg-salmeterol 21 mcg/actuation HFA inhaler (Advair HFA) fluticasone propionate 50 2 spray intranasal DAILY #16 grams 07/21/23 mcg/actuation nasal spray,suspension levalbuterol HCl 0.63 mg/3 mL 0.63 mg (3 mL) inhalation Q8H PRN 07/21/23 solution for nebulization shortness of breath or wheezing #90 mL levalbuterol tartrate 45 2 puff inhalation Q4-6H PRN 07/21/23 mcg/actuation aerosol inhaler shortness of breath #15 grams (Xopenex HFA) loratadine 10 mg tablet (Allergy 10 mg PO DAILY #30 tabs 07/21/23 Relief (loratadine)) prednisone 20 mg tablet 60 mg (3 x 20 mg) PO DAILY 5 days 08/10/23 #15 tabs Allergies Allergy/AdvReac Type Severity Reaction Status Date / Time peach [PEACH] Allergy Severe ANAPHYLAXIS Verified 08/09/23 22:24 Review of Systems Review of Systems: Constitutional : No Fever, No Chills ENT/Mouth : No Hoarseness, No sore throat, No Rhinorrhea Eyes: No Redness, No Discharge, No Vision Changes Cardiovascular : No Chest Pain, positive SOB, positive Dyspnea on Exertion, No Edema Respiratory : positive Cough, No Sputum, positive Wheezing, Gastrointestinal : No Nausea, No Vomiting, No Diarrhea, No abdominal Pain Genitourinary : No Dysuria, No Hematuria Musculoskeletal : No joint pain, No Myalgias Skin : No rash Neuro : No Weakness, No Numbness, No Headache Psych : No anxiety, depression Heme/Lymph: No Bruising, No Bleeding Endocrine : No Polyuria, No Polydipsia All other systems reviewed and are negative [facility] Past Medical History Attestation statement: The following information was validated with the patient. Source: old records reviewed Medical History Tachycardia Seasonal allergies Asthma Social History Patient Tobacco Use Status: Never used Tobacco Advance Directives: No Advance Directives Information Provided: No Cognitive needs: No Hearing needs: No Vision needs: No Physical Exam Vital Signs: Vital Signs: Last Vital Signs Temp 98.7 F 08/09/23 23:46 Pulse 114 H 08/09/23 23:46 Resp 22 H 08/09/23 23:46 BP 131/73 08/09/23 23:46 Pulse Ox 95 08/09/23 23:46 O2 Del Method Room Air 08/09/23 23:46 BMI result Body Mass Index 45.1 Appearance: Alert. Oriented X3. No acute distress. Eyes: Pupils equal, round and reactive to light. ENT: Pharynx normal. Neck: Normal inspection. Neck supple. CVS: tachycardic heart rate and rhythm. Pulses normal. Respiratory: No respiratory distress. Breath sounds mild diffuse end exp wheezes heard Abdomen: Soft and non-tender. Skin: Skin warm and dry. Normal skin color. Normal skin turgor. Extremities: No lower extremity edema. No calf ttp Neuro: Oriented X 3. No motor deficit. No sensory deficit. Course Course Course Narrative: patient is feeling better, has tachycardia from nebs Medications Administered Discontinued Medications Generic Name Dose Route Start Last Admin Trade Name Freq PRN Reason Stop Dose Admin Albuterol/Ipratropium 3 ml 08/09/23 22:37 08/09/23 22:49 Albuterol/Iprat 2.5/0.5mg 3 Ml Ampul.Neb INHALE 08/09/23 22:38 3 ml ONCE ONE Administration Magnesium Sulfate 2 gm in 50 mls @ 150 mls/hr 08/09/23 22:37 08/09/23 23:05 Magnesium Sulfate/H2o IV 08/09/23 22:56 Infused ONCE ONE Infusion Sodium Chloride 1,000 mls @ 999 mls/hr 08/09/23 23:15 08/10/23 00:02 Ns IV 08/10/23 00:15 999 mls/hr .Q1H1M INGRIS Administration Medical Decision Making Medical Decision Making MDM Narrative: 23 yo male with PMH of asthma here with asthma exacerbation following smoke exposure at this time good response to EMS nebs and IV steroids - will repeat duoneb and start on IV magnesium. Will observe and reassess. Denies infectious symptoms to suggest pneumonia or other trigger. Differential Diagnosis Differential Diagnoses: The differential diagnosis associated with the presentation includes asthma Admission/Observation Consideration of admission/observation: Escalation of care including admission/observation considered feels much better, improved stable for DC Independent Historian Clinical information obtained from an independent historian. History obtained from or confirmed by: EMS External Record Review External record reviewed: Inpatient record Prescription Management I considered prescription management with: Other Discharge Plan Discharge Clinical Impression: Asthma with exacerbation Qualifiers: Asthma severity: moderate Asthma persistence: persistent Qualified Code(s): J45.41 - Moderate persistent asthma with (acute) exacerbation Patient Disposition: Home, Self-Care Instructions: Asthma (ED) Additional Instructions: use your inhalers and nebs. take the steroid in the AM. return for worsening breathing. avoid smoke exposure Prescriptions: New prednisone 20 mg tablet 60 mg PO DAILY 5 Days Qty: 15 0RF No Action (DME) Aerochamber Plus Flow-Vu Spacer MISCELLANEOUS DIRECTED hydrocortisone 2.5 % cream 1 appl topical BID PRN (Reason: itching) Qty: 20 0RF cholecalciferol (vitamin D3) 25 mcg (1,000 unit) capsule 25 mcg PO DAILY Qty: 30 0RF levalbuterol HCl 0.63 mg/3 mL solution for nebulization 0.63 mg inhalation Q8H PRN (Reason: shortness of breath or wheezing) Qty: 90 0RF levalbuterol tartrate [Xopenex HFA] 45 mcg/actuation HFA aerosol inhaler 2 puff inhalation Q4-6H PRN (Reason: shortness of breath) Qty: 15 0RF fluticasone propionate 50 mcg/actuation spray,suspension 2 spray intranasal DAILY Qty: 16 0RF loratadine [Allergy Relief (loratadine)] 10 mg tablet 10 mg PO DAILY Qty: 30 3RF fluticasone propion-salmeterol [Advair HFA] 45-21 mcg/actuation HFA aerosol inhaler 2 puff inhalation BID Qty: 12 0RF
[2023-08-09] MEDS: Magnesium Sulfate/H2O 2 GM/50 ML PIGGYBACK IV (22:45)
[2023-08-09] MEDS: Albuterol/Iprat 2.5/0.5MG 3 ML AMPUL.NEB INHALE (22:49)
[2023-08-09 22:52] VITALS: PULSE 113; RESP 16; O2SAT 96
--- NOTE | 2023-08-09 23:00 | PC.NURSE ---
Pt A&Ox4, reports increasing SOB since 1999, reports mother was cooking all day and then being exposed to cigarette smoke. Pt speaking in full sentences, Spo2 98% with breathing tx, RR 24, lung sounds wheezing.
[2023-08-09 23:46] VITALS: BP 131/73; PULSE 114; RESP 22; TEMP 37.1; O2SAT 95
--- NOTE | 2023-08-09 23:47 | MHC.EDTECH ---
This tech assume care of patient at 2300,hourly rounds and vitals completed. Call jm jacob
[2023-08-10] MEDS: 0.9 % Sodium Chloride 1,000 ML 999 ML IV (00:02)
[2023-08-10 01:00] VITALS: PULSE 110; RESP 18; O2SAT 98
--- NOTE | 2023-08-10 01:06 | PC.NURSE ---
Pt reports feeling a lot better , slight wheezing lungs sounds, Improvement from meds given.
== END 2023-08-10 01:12 | disposition home or self-care (01) ==
PROVIDERS: Emergency Provider Emergency Medicine; PCP Physician Assistant
DX: J45.41 Moderate persistent asthma with (acute) exacerbation (principal); R06.02 Shortness of breath
CPT/HCPCS: 94640; 96361; 96365; 99284; 99285; J3475

== ENCOUNTER 2023-09-07 22:28 | Emergency (ER) | payer OTHER, SELFPAY ==
--- NOTE | ~2023-09-07 | XR_ITS ---
EXAMINATION: XR CHEST CLINICAL INFORMATION: Cough. Asthma exacerbation. COMPARISON: None available. TECHNIQUE: Frontal view of the chest was obtained. FINDINGS: No significant abnormality is noted involving the heart, lungs, mediastinum, bony thorax or soft tissues. XR/XR chest 1V IMPRESSION: Unremarkable chest examination.
--- NOTE | 2023-09-07 22:35 | ECG_ITS ---
Test Reason : sob Blood Pressure : / mmHG Vent. Rate : 112 BPM Atrial Rate : 112 BPM P-R Int : 170 ms QRS Dur : 088 ms QT Int : 320 ms P-R-T Axes : 051 069 032 degrees QTc Int : 436 ms Sinus tachycardia Otherwise normal ECG When compared with ECG of 29-DEC-2021 09:51, No significant change was found Referred By: Generic ED Physician Electronically Signed By:PETR NO MD
[2023-09-07 22:37] VITALS: BP 136/80; PULSE 114; RESP 22; TEMP 36.4; O2SAT 96
[2023-09-07 22:40] VITALS: BP 136/80; BP 161/105; PULSE 116; PULSE 126; RESP 25; O2SAT 96; O2SAT 98; BMI 45.2
--- NOTE | 2023-09-07 22:44 | PC.NURSE ---
Addendum entered by Alona Marcial RN 09/07/23 22:49: Pt did report having thoughts of hurting himself. Denied any plans or actions, and stated he did not want to talk to CARE while in the emergency room. Original Note: Pt presents to ED via EMS for shortness of breath. Pt has hx of asthma and is exposed frequently to second hand smoke. Around 1800, pt reported increased trouble breathing. Pt administered neb treatments at home with no affect. Pt called 911, EMS administered duoneb, 125mg solumedrol, and 2g magnesium. Pt reports feeling better after treatments. Pt has an 18g IV in the right AC. Labs and EKG being obtained now. Pt was put on the vehicle monitor technician. Waiting ED provider at this time.
[2023-09-07 23:01] LABS: MANUAL DIFF FLAG NO
[2023-09-07 23:06] LABS: Basophils Absolute Auto 0.1 X10*3/uL (0.0-0.2); Basophils Percent Auto 0.8 % (0-2); Eosinophils Absolute Auto 0.6 X10*3/uL (0.0-0.4); Eosinophils Percent Auto 6.2 % (0-4); Hematocrit 43.1 % (42.0-52.0); Hemoglobin 14.6 g/dl (14.0-18.0); Imm Gran Abs Auto 0.02 X10*3/uL (0.00-0.03); Imm Gran Pct Auto 0.2 % (0.0-0.4); Lymphocytes Absolute Auto 2.4 X10*3/uL (1.2-4.9); Lymphocytes Percent Auto 24.5 % (20-40); Mean Corpuscular HGB Conc 33.9 g/dl (31.0-36.0); Mean Corpuscular Volume 88.5 fL (80.0-98.0); Mean Platelet Volume 10.1 fL (9.4-12.4); Monocytes Absolute Auto 0.8 X10*3/uL (0.1-1.2); Monocytes Percent Auto 7.7 % (2-11); Neutrophils Percent Auto 60.6 % (45-73); Platelet Count 383 X10*3/uL (160-400); Red Blood Count 4.87 X10*6/uL (4.60-5.80); Red Cell Distribution Width 13.2 % (11.0-16.0); White Blood Count 9.9 X10*3/uL (4.8-10.8)
[2023-09-07 23:16] LABS: Anion Gap 14 (12-20); Blood Urea Nitrogen 16 mg/dL (9-16); Calcium 9.3 mg/dL (8.4-10.2); Carbon Dioxide 22 mmol/L (22-29); Chloride 108 mmol/L (96-108); Estimated Glomerular Filt Rate > 60; Glucose Random 114 mg/dL (60-115); Potassium 3.9 mmol/L (3.3-5.1); Sodium 140 mmol/L (135-145)
--- NOTE | 2023-09-07 23:20 | ED.GENADULT ---
HPI - General Adult General Chief complaint: Dyspnea Stated complaint: sob Time Seen by Provider: 09/07/23 22:45 Source: patient, RN notes reviewed and old records reviewed Mode of arrival: EMS Limitations: no limitations History of Present Illness HPI narrative: 23-year-old male past medical history significant for asthma presents for evaluation of shortness of breath. Patient reports that he has been coughing the last few days. Around 6:00 p.m. today he noticed increased shortness of breath with wheezing. Use his nebulizer home without any improvement. He called EMS and received a DuoNeb, Solu-Medrol 125 mg IV, magnesium 2 g IV and reports feeling much better on arrival to the ED. He denies any fevers, chills, sick contacts. Denies any pain Related Data Home Medications Medication Instructions Recorded Confirmed inhalational spacing device 06/25/20 06/25/20 (Aerochamber Plus Flow-Vu) Previous Rx's Medication Instructions Recorded hydrocortisone 2.5 % topical cream 1 appl topical BID PRN itching #20 03/20/21 grams cholecalciferol (vitamin D3) 25 25 mcg PO DAILY #30 caps 07/21/23 mcg (1,000 unit) capsule fluticasone propionate 45 2 puff inhalation BID #12 grams 07/21/23 mcg-salmeterol 21 mcg/actuation HFA inhaler (Advair HFA) fluticasone propionate 50 2 spray intranasal DAILY #16 grams 07/21/23 mcg/actuation nasal spray,suspension levalbuterol HCl 0.63 mg/3 mL 0.63 mg (3 mL) inhalation Q8H PRN 07/21/23 solution for nebulization shortness of breath or wheezing #90 mL levalbuterol tartrate 45 2 puff inhalation Q4-6H PRN 07/21/23 mcg/actuation aerosol inhaler shortness of breath #15 grams (Xopenex HFA) loratadine 10 mg tablet (Allergy 10 mg PO DAILY #30 tabs 07/21/23 Relief (loratadine)) prednisone 20 mg tablet 60 mg (3 x 20 mg) PO DAILY 5 days 08/10/23 #15 tabs prednisone 20 mg tablet 40 mg (2 x 20 mg) PO DAILY #10 tabs 09/08/23 Allergies Allergy/AdvReac Type Severity Reaction Status Date / Time peach [PEACH] Allergy Severe ANAPHYLAXIS Verified 08/09/23 22:24 Review of Systems Constitutional: Constitutional: Denies chills and Denies fever(s) Eyes: Eyes: Denies blurry vision ENT: Denies sore throat Cardiovascular: Cardiovascular: Denies chest pain and Reports dyspnea Respiratory: Respiratory: Reports cough, Reports dyspnea and Reports wheezing Gastrointestinal: Gastrointestinal: Denies abdominal pain, Reports nausea and Denies vomiting Musculoskeletal: Musculoskeletal: Denies back pain Integumentary/Breasts: Skin/Breast: Denies rash Allergic/Immunologic: Allergic/Immunologic: Reports wheezing PMFSH Past Medical History Medical History Tachycardia Seasonal allergies Asthma Social History Social History Alcohol intake: never Patient Tobacco Use Status: Never used Tobacco Smoked in Last 30 Days: No Use of substances other than those prescribed or required for medical reasons: No Advance Directives: No Advance Directives Information Provided: Yes Cognitive needs: No Hearing needs: No Vision needs: No Physical Exam ED Vital Signs: Vital Signs - 24 hr 09/07/23 22:37 09/07/23 22:40 Temperature 97.6 F Pulse Rate 114 H 116 H Respiratory Rate 22 H 25 H Blood Pressure 136/80 136/80 Pulse Oximetry 96 96 Oxygen Delivery Method Room Air Room Air BMI result Body Mass Index 45.2 Const General: healthy appearing, comfortable, no acute distress, alert and awake Nutritional Appearance: well nourished Orientation/consciousness: patient oriented x3 HENMT Head: Yes normocephalic and Yes atraumatic Throat: Yes posterior oropharynx normal Eyes Eyelids: Yes eyelids normal Conjunctivae: conjunctivae normal Sclerae: sclerae normal Corneas: corneas normal Pupils: Equal, round and reactive pupils present EOM: EOMs intact bilaterally Neck Neck: Yes full ROM Resp Effort & Inspection: normal respiratory effort, able to speak in complete sentences, not labored and prolonged expiratory phase Auscultation: not clear to auscultation bilaterally and wheezes expiratory wheezes and throughout Cardio Rate: regular rate Rhythm: regular rhythm GI Inspection: No distended Palpation (GI): Soft to palpation, not firm, nontender, no guarding and not rigid Skin General skin exam: no rashes or lesions noted and elasticity normal Neuro General: patient oriented x3 Cranial nerves: Yes Equal, round and reactive pupils present and Yes Bilaterally intact EOM present Cognition (Neuro): normal cognition Extrem Other: Moving all extremities well without any obvious deformities Course Reevaluation(s) Reevaluation #1: Patient re-evaluated, he reports feeling well, his vital signs improved his heart rates in the 80s. On exam he has very mild expiratory wheeze. The patient is stable for discharge with prednisone. He reports that he has albuterol inhalers at home Time: 01:03 Medical Decision Making Medical Decision Making [facility] Narrative: 23-year-old male with longstanding history of acid presents for evaluation of shortness of breath. Reports cough for the last 2 days and worsening shortness of breath today. He received steroids, DuoNeb and magnesium with good affect do prior to arrival from EMS. Plan for close monitoring, chest x-ray, labs, viral swabs. He is tachycardic on arrival but otherwise in no respiratory distress. The tachycardia is likely related to albuterol use Differential Diagnosis Differential Diagnoses: The differential diagnosis associated with the presentation includes Acute asthma exacerbation Bronchitis Pneumonia Influenza RSV Admission/Observation Consideration of admission/observation: Escalation of care including admission/observation considered Patient presents for evaluation of shortness of breath in the setting of known asthma. Lab Data [facility] Lab Attestation statement: I reviewed the patient's lab results. No leukocytosis, significant anemia. No electrolyte abnormalities. 09/07/23 22:57 09/07/23 22:57 Labs: Lab Results 09/07/23 Range/Units 22:57 WBC 9.9 (4.8-10.8) X10*3/uL RBC 4.87 (4.60-5.80) X10*6/uL Hgb 14.6 (14.0-18.0) g/dl Hct 43.1 (42.0-52.0) % MCV 88.5 (80.0-98.0) fL MCH 30.0 (27.0-33.0) pg MCHC 33.9 (31.0-36.0) g/dl RDW 13.2 (11.0-16.0) % Plt Count 383 (160-400) X10*3/uL MPV 10.1 (9.4-12.4) fL Immature Gran % (Auto) 0.2 (0.0-0.4) % Neut % (Auto) 60.6 (45-73) % Lymph % (Auto) 24.5 (20-40) % Mclennan % (Auto) 7.7 (2-11) % Eos % (Auto) 6.2 H (0-4) % Baso % (Auto) 0.8 (0-2) % Lymph # (Auto) 2.4 (1.2-4.9) X10*3/uL Mclennan # (Auto) 0.8 (0.1-1.2) X10*3/uL Eos # (Auto) 0.6 H (0.0-0.4) X10*3/uL Baso # (Auto) 0.1 (0.0-0.2) X10*3/uL Abs Immat Gran (auto) 0.02 (0.00-0.03) X10*3/uL Absolute Neuts (auto) 6.0 (2.0-8.3) x10*3/uL Absolute Nucleated RBC 0.000 (0.0-0.012) X10*3/uL Nucleated RBC % (auto) 0.0 (0.0-0.2) /100WBC Sodium 140 (135-145) mmol/L Potassium 3.9 (3.3-5.1) mmol/L Chloride 108 (96-108) mmol/L Carbon Dioxide 22 (22-29) mmol/L Anion Gap 14 (12-20) BUN 16 (9-16) mg/dL Creatinine 1.03 (0.5-1.4) mg/dL Estim Creat Clear Calc 136.0 Estimated GFR > 60 Random Glucose 114 (60-115) mg/dL Calcium 9.3 (8.4-10.2) mg/dL Troponin I High Sens < 2.7 (<3.5-35.0) ng/L Influenza Type A (PCR) NEGATIVE (Negative) Influenza Type B (PCR) NEGATIVE (Negative) RSV RNA Qual (PCR) NEGATIVE (Negative) SARS-CoV-2 RNA (RT-PCR) NEGATIVE (Negative) Independent Interpretation I performed an independent interpretation of an: Plain X-Ray (No acute infiltrate) Radiology Impression Discussion of test interpretation with radiology: I have reviewed the radiologist's reading. (unremarkable chest examination) Discharge Plan Discharge Clinical Impression: Asthma with exacerbation Patient Disposition: Home, Self-Care Instructions: Asthma (ED) Additional Instructions: Take prednisone 40 mg daily for the next 5 days. Use your albuterol inhalers as needed Workup in the ER today was reassuring. You tested negative for flu, COVID, RSV. Your chest x-ray was clear Prescriptions: New prednisone 20 mg tablet 40 mg PO DAILY Qty: 10 0RF No Action (DME) Aerochamber Plus Flow-Vu Spacer MISCELLANEOUS DIRECTED hydrocortisone 2.5 % cream 1 appl topical BID PRN (Reason: itching) Qty: 20 0RF prednisone 20 mg tablet 60 mg PO DAILY 5 Days Qty: 15 0RF cholecalciferol (vitamin D3) 25 mcg (1,000 unit) capsule 25 mcg PO DAILY Qty: 30 0RF levalbuterol HCl 0.63 mg/3 mL solution for nebulization 0.63 mg inhalation Q8H PRN (Reason: shortness of breath or wheezing) Qty: 90 0RF levalbuterol tartrate [Xopenex HFA] 45 mcg/actuation HFA aerosol inhaler 2 puff inhalation Q4-6H PRN (Reason: shortness of breath) Qty: 15 0RF fluticasone propionate 50 mcg/actuation spray,suspension 2 spray intranasal DAILY Qty: 16 0RF loratadine [Allergy Relief (loratadine)] 10 mg tablet 10 mg PO DAILY Qty: 30 3RF fluticasone propion-salmeterol [Advair HFA] 45-21 mcg/actuation HFA aerosol inhaler 2 puff inhalation BID Qty: 12 0RF
[2023-09-07 23:29] LABS: Troponin-I High Sensitivity < 2.7 ng/L (<3.5-35.0)
[2023-09-08 00:57] LABS: Influenza A PCR NEGATIVE (Negative); Influenza B PCR NEGATIVE (Negative); Resp Syncy Virus RNA Qual PCR NEGATIVE (Negative); SARS COV2 PCR INHOUSE NEGATIVE (Negative)
== END 2023-09-08 01:12 | disposition home or self-care (01) ==
PROVIDERS: Emergency Provider Internal Medicine; PCP Physician Assistant
DX: J45.901 Unspecified asthma with (acute) exacerbation (principal); R06.02 Shortness of breath; R05.9 Cough, unspecified; R00.0 Tachycardia, unspecified; Z20.822 Contact with and (suspected) exposure to COVID-19; Z20.828 Contact with and (suspected) exposure to other viral communicable diseases; Z79.899 Other long term (current) drug therapy
CPT/HCPCS: 0241U; 36415; 71045; 80048; 84484; 85025; 93005; 99284; 99285

== ENCOUNTER → 2023-09-07 22:35 | Outpatient (BNV) | payer OTHER, SELFPAY | PROVIDERS: Emergency Provider Internal Medicine; PCP Physician Assistant; Visit Provider Internal Medicine Cardiovascular Disease | DX: R00.0 Tachycardia, unspecified (principal) | CPT/HCPCS: 93010 ==

== ENCOUNTER 2023-11-22 09:38 | Outpatient (AMB) | payer OTHER, SELFPAY ==
[2023-11-22 09:47] VITALS: BP 128/86; PULSE 99; O2SAT 97; BMI 43.1
--- NOTE | 2023-11-22 09:47 | A.OFFPC_ITS ---
Vital Signs 11/22/23 09:47 Height 5 ft 5 in Weight 259 lb 4 oz BMI 43.1 BP 128/86 Blood Pressure Location Lt brachial Position Sitting Pulse 99 Pulse Source Pulse Oximeter Pulse Oximetry (%) 97 Oxygen Delivery Method Room Air Intake Visit Reasons: Transfer of Care/[facility] Chief Executive Or Managing Director Required: No Accompanied by: Mother Allergies peach [PEACH] Allergy (Severe, Verified 11/22/23 10:08) ANAPHYLAXIS Medication List - Last Reconciled 11/22/23 by Yao Hernandez PA-C cholecalciferol (vitamin D3) 25 mcg PO DAILY fluticasone propion-salmeterol 45-21 mcg/actuation (Advair HFA) 2 puffs inhalation BID fluticasone propionate 50 mcg/actuation 2 sprays intranasal DAILY hydrocortisone 2.5% 1 appl topical BID PRN inhalational spacing device (Aerochamber Plus Flow-Vu) levalbuterol HCl 0.63 mg (3 mL) inhalation Q8H PRN levalbuterol tartrate 45 mcg/actuation (Xopenex HFA) 2 puffs inhalation Q4-6H PRN loratadine (Allergy Relief (loratadine)) 10 mg PO DAILY Tobacco use date assessed: 11/22/23 Dental Screening Dental Screen Date: 11/22/23 Did you have a dental visit in the last 12 months?: No Did you have a dental problem in the last 6 months where you did not have access to dental care?: Yes Was dental information given to patient?: Patient has dentist HPI Transfer of Care/[facility] HPI Details Patient is a 23-year-old male here today for a transfer care visit. Patient has a past medical history significant for moderate persistent asthma and vitamin-D deficiency along with obesity. .. Asthma: Reports his asthma has not been well controlled. Has been using his mother's asthma inhaler. Was on Advair and leave albuterol and would like refills on these. He reports he has asthma since a child. His mother does report meconium aspiration during childbirth. .. Obesity: He does understand his BMI is over 40 will try to work on being more physically active and adapt to better eating habits to reduce his weight. . Social anxiety: He does suffer from social anxiety. Not interested in medication though is willing to speak with a mental health therapist. Does have trouble sleeping and will try melatonin [id number]. PFSH Medical History Tachycardia Seasonal allergies Asthma Family History (Updated 11/23/23 @ 07:30 by Yao Hernandez PA-C) Mother CAD (coronary artery disease), Onset Age: 55 Asthma Social History Housing: House Alcohol intake: never Patient Tobacco Use Status: Never used Tobacco e-Cigarette/Vaping Use: Never Used service: No Current occupational status: unemployed Cognitive needs: No Hearing needs: No Vision needs: No Questionnaire PHQ-9 Over the last 2 weeks, how often have you been bothered by any of the following problems? 1. Little interest or pleasure in doing things: not at all 2. Feeling down, depressed, or hopeless: not at all 3. Trouble falling or staying asleep, or sleeping too much: not at all 4. Feeling tired or having little energy: not at all 5. Poor appetite or overeating: not at all 6. Feeling bad about yourself - or that you are a failure or have let yourself or your family down: not at all 7. Trouble concentrating on things, such as reading the newspaper or watching television: not at all 8. Moving or speaking so slowly that other people could have noticed. Or the opposite - being so fidgety or restless that you have been moving around a lot more than usual: not at all 9. Thoughts that you would be better off or of hurting yourself in some way: not at all Total score: 0 Depression Screening Interpretation: Negative Depression Screening Done: Yes 69086 - PHQ-9 Billing: Yes Source: Developed by Drs. Noah Castro, Kirsty Stevenson, Rhett Waddell and colleagues, with an educational nicole from [employer]. Thrive Questionnaire Date Thrive assessed: 11/22/23 I am a: Patient What is your living situation today?: I have a steady place to live Within the past 12 months, did the food you bought not last and you didn't have the money to get more?: Never true Within the past 12 months, did you worry whether your food would run out before you got money to buy more?: Never true Do you have trouble paying for medicines?: No Do you have trouble getting transportation to medical appointments?: No Do you have trouble paying your heating and electricity bill?: No Do you have trouble taking care of your child, family member or friend?: No Do you have trouble with day-to-day activities such as bathing, preparing meals, shopping, managing finances, etc.?: No Are you currently unemployed and looking for a job?: No Are you interested in more education?: No Please select the resources that you would like help with: None Currently or been in a relationship where the following occur: no concerns reported THRIVE Score: 0 AUDIT C Alcohol Use Questionnaire (AUDIT-C) 1. How often do you have a drink containing alcohol?: Monthly or less 2. How many drinks containing alcohol do you have on a typical day when you are drinking?: 1 or 2 3. How often do you have six or more drinks on one occasion?: Never Total Score: 1 CUCO-7 AMB Questionnaire CUCO-7 Date CUCO - 7 assessed: 11/22/23 Feeling nervous, anxious, or on edge: 2 = More than half the days Not being able to stop or control worryin = Not at all Worrying too much about different things: 1 = Several days Trouble relaxin = Several days Being so restless that it is hard to sit still: 2 = More than half the days Becoming easily annoyed or irritable: 2 = More than half the days Feeling afraid as if something awful might happen: 2 = More than half the days Total CUCO-7 score (0-4 normal; 5-9 mild; 10-14 moderate; 15-21 severe): 10 Source: Developed by Drs. Noah Castro, Kirsty Stevenson, Rhett Waddell and colleagues, with an educational nicole from [employer]. CUCO-7 Assessment Billing CUCO-7 Assessment Tool: CUCO-7 Assessment [id number] ACT Questionnaire In the past 4 weeks, how much of the time did your asthma keep you from getting as much done at work, school or at home?: Most of the time During the past 4 weeks, how often have you had shortness of breath?: More than once a day During the past 4 weeks, how often did your asthma symptoms wake you up at night or earlier than usual in the morning?: 2-3 nights a week During the past 4 weeks, how often have you had to use your rescue inhaler or nebulizer medication?: More than 3 times per day How would you rate your asthma control during the past 4 weeks?: Poorly controlled ACT Interpretation: Positive ACT Branch: Refer to Community Navigation Score: 8 Review of Systems Const Denies headache(s) Eyes Denies loss of vision ENT Denies vertigo, Denies dizziness, Denies headache(s) and Denies sore throat Card Denies chest pain, Denies leg edema and Denies lightheadedness Resp Denies cough, Denies hemoptysis and Denies wheezing GI Denies abdominal pain, Denies melena, Denies constipation, Denies diarrhea and Denies vomiting Denies dysuria, Denies urinary frequency and Denies urinary urgency Musc Denies arthralgias, Denies joint swelling, Denies numbness and Denies tingling Neuro Denies Abnormal speech present, Denies behavioral changes, Denies vertigo, Denies dizziness, Denies headache(s), Denies loss of vision, Denies memory loss, Denies numbness and Denies tingling Psych Denies anxiety, Denies behavioral changes, Denies depression, Denies memory loss and Denies panic attacks Cj/Lymph Denies easy bleeding and Denies easy bruising Aller/Immun Denies wheezing Physical exam (Primary Care) Vital Signs: Last Vital Signs Pulse 99 11/22/23 09:47 BP 128/86 11/22/23 09:47 Pulse Ox 97 11/22/23 09:47 Oxygen Delivery Method Room Air 11/22/23 09:47 BMI result Body Mass Index 43.1 BMI Assessment/Plan discussion: High Tobacco/Smoking Status: Tobacco use Status Tobacco use date assessed 11/22/23 11/22/23 10:02 Patient Tobacco Use Status Never used Tobacco 11/22/23 09:49 e-Cigarette/Vaping Use Never Used 11/22/23 10:02 PHQ-9: PHQ-9 Score PHQ-9: Total score 0 11/22/23 10:30 Depression Screening Interpretation: Negative Thrive Assessment: Date of Thrive Assessment Date Thrive assessed 11/22/23 11/22/23 10:02 Currently or been in a relationship where the following occur: no concerns reported Const Other: Obese General: healthy appearing, no acute distress, alert and awake Nutritional Appearance: well nourished Orientation/consciousness: oriented to person, oriented to place and oriented to time HENMT Ears: TM's normal bilaterally General nose exam: Normal nasal mucous membranes and turbinates present Eyes Conjunctivae: conjunctivae normal Sclerae: sclerae normal Pupils: Equal, round and reactive pupils present Neck Neck: Yes no lymphadenopathy and Yes no JVD Thyroid: Thyroid normal Carotids: no bruits Resp Effort & Inspection: normal respiratory effort and not tachypneic Auscultation: no crackles, no rales, no rhonchi and no wheezes Cardio Rate: regular rate Rhythm: regular rhythm Heart sounds: no murmurs and normal S1 and S2 GI Palpation (GI): Soft to palpation, nontender, no hepatomegaly and no splenomegaly Auscultation: normal bowel sounds Skin General skin exam: no rashes or lesions noted and dry skin Neuro General: oriented to person, oriented to place and oriented to time Cranial nerves: Yes Equal, round and reactive pupils present Speech: No Abnormal speech present Gait exam (Neuro): Normal gait present Motor exam (neuro): no tremor noted Extrem Right upper extremity: full ROM Left upper extremity: full ROM Right lower extremity: full ROM; no edema Left lower extremity: full ROM; no edema Psych Mental Status: mental status grossly normal Speech and movement: Normal speech and movement present Affect: normal affect Attitude: cooperative Thought process: Normal thought process present Assessment and Plan Assessment & Plan (1) Asthma: Code(s): J45.909 - Unspecified asthma, uncomplicated Qualifiers: Asthma complication type: uncomplicated Asthma persistence: persistent Asthma severity: moderate Qualified Code(s): J45.40 - Moderate persistent asthma, uncomplicated Plan: Patient has had asthma has entire life. Does use a leave albuterol inhaler and as needed basis. Was on Advair in the past with decent affect. His mother reports during childbirth meconium aspiration. He reports he continues to have asthma symptoms on a nearly everyday basis. He does not work as he feels his asthma has been keeping him from being able to work full-time. He is interested in establishing care with a sales floor team member. Will start him on higher dose Advair inhaler for better control of his asthma. Will also try to get community navigation involved to do home eval to see if there is any environmental factor in home exacerbating his asthma. (2) Screening for diabetes mellitus (DM): Code(s): Z13.1 - Encounter for screening for diabetes mellitus (3) Insomnia: Code(s): G47.00 - Insomnia, unspecified Qualifiers: Insomnia type: primary Qualified Code(s): F51.01 - Primary insomnia Plan: Reports having trouble sleeping, often does not get to bed 2-3 in the morning. Will try melatonin [id number]. Advised on sleep hygiene techniques. (4) CUCO (generalized anxiety disorder): Code(s): F41.1 - Generalized anxiety disorder Plan: Patient's CUCO-7 score positive for anxiety which has been existing condition for him. He is interested in setting up appointment with a mental therapist work with him on his anxiety. (5) Obese: Code(s): E66.9 - Obesity, unspecified Qualifiers: Obesity type: due to excess calories Obesity classification: adult class 3 (BMI >= 40) Serious obesity comorbidity presence: without serious comorbidity Body mass index: BMI 40.0-44.9 Qualified Code(s): E66.01 - Morbid (severe) obesity due to excess calories; Z68.41 - Body mass index [BMI] 40.0- 44.9, adult Plan: Patient does understand his BMI is over 40 will work on being more physically active and adapting to better eating habits to reduce his weight Orders: Orders Complete Blood Count no Diff 11/22/23 J45.40 - Moderate persistent asthma, uncomplicated IgE Antibody (Anti-IgE IgG) 11/22/23 J45.40 - Moderate persistent asthma, u ncomplicated Comprehensive [place]. Panel Fast 11/22/23 Z13.1 - Encounter for screening for diabetes mellitus Vitamin D 25-OH Total 11/22/23 E55.9 - Vitamin D deficiency, unspecified Referrals Pulmonology Referral J45.40 - Moderate persistent asthma, uncomplicated Counseling Referral F41.1 - Generalized anxiety disorder Medications: New fluticasone propion-salmeterol 230-21 mcg/actuation (Advair HFA) 2 puffs inhalation BID 30 days 12 grams 3RF J45.40 - Moderate persistent asthma, uncomplicated Changed From levalbuterol HCl 0.63 mg (3 mL) inhalation Q8H PRN 90 mL 0RF shortness of breath or wheezing J45.40 - Moderate persistent asthma, uncomplicated To levalbuterol HCl 0.63 mg (3 mL) inhalation Q8H 30 days PRN 90 mL 3RF shortness of breath or wheezing J45.40 - Moderate persistent asthma, uncomplicated From cholecalciferol (vitamin D3) 25 mcg PO DAILY 30 caps 0RF E55.9 - Vitamin D deficiency, unspecified To cholecalciferol (vitamin D3) 25 mcg PO DAILY 90 days 90 caps 1RF E55.9 - Vitamin D deficiency, unspecified From loratadine (Allergy Relief (loratadine)) 10 mg PO DAILY 30 tabs 3RF J45.40 - Moderate persistent asthma, uncomplicated To loratadine (Allergy Relief (loratadine)) 10 mg PO DAILY 90 days 90 tabs 2RF J45.40 - Moderate persistent asthma, uncomplicated From levalbuterol tartrate 45 mcg/actuation (Xopenex HFA) 2 puffs inhalation Q4-6H PRN 15 grams 0RF shortness of breath J30.2 - Other seasonal allergic rhinitis, J45.909 - Unspecified asthma, uncomplicated, R00.0 - Tachycardia, unspecified To levalbuterol tartrate 45 mcg/actuation (Xopenex HFA) 2 puffs inhalation Q4- 6H 30 days PRN 15 grams 3RF shortness of breath J30.2 - Other seasonal allergic rhinitis, J45.909 - Unspecified asthma, uncomplicated, R00.0 - Tachycardia, unspecified From hydrocortisone 2.5% 1 appl topical BID PRN 20 grams 0RF itching E55.9 - Vitamin D deficiency, unspecified, L30.9 - Dermatitis, unspecified To hydrocortisone 2.5% 1 appl topical BID 30 days PRN 30 grams 3RF itching E55.9 - Vitamin D deficiency, unspecified, L30.9 - Dermatitis, unspecified Discontinued fluticasone propion-salmeterol 45-21 mcg/actuation (Advair HFA) Discontinued Reason: Doctor's Order 2 puffs inhalation BID 12 grams 0RF J45.909 - Unspecified asthma, uncomplicated Coding Level of Care Code New Pt Level 4 (70482) Diagnoses Moderate persistent asthma without complication J45.40 Asthma complication type: uncomplicated Asthma persistence: persistent Asthma severity: moderate Screening for diabetes mellitus (DM) Z13.1 Primary insomnia F51.01 Insomnia type: primary CUCO (generalized anxiety disorder) F41.1 Class 3 severe obesity due to excess calories without serious comorbidity with body mass index (BMI) of 40.0 to 44.9 in adult E66.01; Z68.41 Obesity type: due to excess calories Obesity classification: adult class 3 (BMI >= 40) Serious obesity comorbidity presence: without serious comorbidity Body mass index: BMI 40.0-44.9 Additional Codes CUCO-7 Assessment Billing - CUCO-7 Assessment Tool: CUCO-7 Assessment [id number] ([id number])
== END 2023-11-22 10:30 | disposition home or self-care (01) ==
PROVIDERS: PCP Physician Assistant; Visit Provider Physician Assistant
DX: J45.40 Moderate persistent asthma, uncomplicated (principal); Z13.1 Encounter for screening for diabetes mellitus; E66.01 Morbid (severe) obesity due to excess calories; Z68.41 Body mass index [BMI] 40.0-44.9, adult; F51.01 Primary insomnia; F41.1 Generalized anxiety disorder; E55.9 Vitamin D deficiency, unspecified
CPT/HCPCS: 99214

== ENCOUNTER 2023-11-23 09:21 | Outpatient (REF) | payer OTHER, SELFPAY ==
[2023-11-23 10:13] LABS: Hematocrit 46.8 % (42.0-52.0); Hemoglobin 15.7 g/dl (14.0-18.0); Mean Corpuscular HGB Conc 33.5 g/dl (31.0-36.0); Mean Corpuscular Volume 89.3 fL (80.0-98.0); Mean Platelet Volume 10.1 fL (9.4-12.4); Platelet Count 341 X10*3/uL (160-400); Red Blood Count 5.24 X10*6/uL (4.60-5.80); Red Cell Distribution Width 13.1 % (11.0-16.0); White Blood Count 7.9 X10*3/uL (4.8-10.8)
[2023-11-23 11:03] LABS: Alanine Aminotransferase 32 U/L (0-40); Albumin Level 4.2 g/dL (3.5-5.0); Alkaline Phosphatase 48 U/L (39-117); Anion Gap 9 (12-20); Aspartate Amino Transferase 17 U/L (5-37); Bilirubin Total 0.4 mg/dL (0.0-1.0); Blood Urea Nitrogen 10 mg/dL (9-16); Calcium 9.4 mg/dL (8.4-10.2); Carbon Dioxide 27 mmol/L (22-29); Chloride 108 mmol/L (96-108); Estimated Glomerular Filt Rate > 60; Glucose Fasting 98 mg/dL (60-99); Potassium 4.1 mmol/L (3.3-5.1); Sodium 140 mmol/L (135-145); Total Protein 7.3 g/dL (6.5-8.0)
[2023-11-23 11:23] LABS: Vitamin D 25-OH Total 17.7 ng/mL (>30)
[2023-12-01 02:18] LABS: IgE Antibody (Anti-IgE IgG) 27 ng/mL (<168)
== END 2023-11-23 09:22 | disposition home or self-care (01) ==
LOC: HO.LAB 09:21
PROVIDERS: PCP Physician Assistant; Visit Provider Physician Assistant
DX: J45.40 Moderate persistent asthma, uncomplicated (principal); E55.9 Vitamin D deficiency, unspecified; Z13.1 Encounter for screening for diabetes mellitus
CPT/HCPCS: 36415; 80053; 82306; 83520; 85027

== ENCOUNTER 2023-12-05 18:22 | Emergency (ER) | payer OTHER, SELFPAY ==
[2023-12-05 18:34] VITALS: BP 150/90; PULSE 170; O2SAT 89; BMI 25.8
[2023-12-05 18:39] VITALS: BP 190/91; PULSE 145; RESP 150; TEMP 36.5; O2SAT 94
[2023-12-05] MEDS: Magnesium Sulfate/D5W 1 GM/100 ML PIGGYBACK IV (18:46)
--- NOTE | 2023-12-05 18:46 | ECG_ITS ---
Test Reason : DYSNEA Blood Pressure : / mmHG Vent. Rate : 125 BPM Atrial Rate : 125 BPM P-R Int : 166 ms QRS Dur : 092 ms QT Int : 300 ms P-R-T Axes : 048 069 016 degrees QTc Int : 433 ms Sinus tachycardia Otherwise normal ECG When compared with ECG of 07-SEP-2023 22:48, No significant change was found Referred By: Jessee Banks Electronically Signed By:JANNA DOWNEY
--- NOTE | 2023-12-05 19:05 | ED.GENADULT ---
HPI - General Adult General Chief complaint: Dyspnea Stated complaint: SOB, hx of asthma, wheezing in upper lobes Time Seen by Provider: 12/05/23 18:35 Source: patient, RN notes reviewed and old records reviewed Mode of arrival: EMS Limitations: no limitations History of Present Illness HPI narrative: 23-year-old male with past medical history significant for asthma presents for evaluation of shortness of breath. Patient reports that he was making chicken for dinner when he started to feel a sudden onset of shortness of breath He uses Xopenex, Advair, and rescue inhalers He has a nebulizer at home that did not help his symptoms prompting him to call the ambulance Apparently EMS found the patient to be hypoxic to 89% on room air He was given a single DuoNeb with Solu-Medrol 125 mg IV EN route to the hospital Reports feeling much better but still feels short of breath He denies any chest pain fevers, chills, sick contacts or recent travel Denies any history of DVT or PE Related Data Home Medications Medication Instructions Recorded Confirmed inhalational spacing device 06/25/20 11/22/23 (Aerochamber Plus Flow-Vu) Previous Rx's Medication Instructions Recorded fluticasone propionate 50 2 spray intranasal DAILY #16 grams 07/21/23 mcg/actuation nasal spray,suspension cholecalciferol (vitamin D3) 25 25 mcg PO DAILY 90 days #90 caps 11/22/23 mcg (1,000 unit) capsule fluticasone propionate 230 2 puff inhalation BID 30 days #12 11/22/23 mcg-salmeterol 21 mcg/actuation grams HFA inhaler (Advair HFA) hydrocortisone 2.5 % topical cream 1 appl topical BID PRN itching 30 11/22/23 days #30 grams loratadine 10 mg tablet (Allergy 10 mg PO DAILY 90 days #90 tabs 11/22/23 Relief (loratadine)) Xopenex HFA 45 mcg/actuation 2 puff inhalation Q4-6H PRN 11/23/23 aerosol inhaler (levalbuterol shortness of breath 30 days #15 tartrate) grams levalbuterol HCl 0.63 mg/3 mL 0.63 mg (3 mL) inhalation Q8H PRN 11/23/23 solution for nebulization shortness of breath or wheezing 30 days #90 mL prednisone 20 mg tablet 40 mg (2 x 20 mg) PO DAILY #10 tabs 12/05/23 Allergies Allergy/AdvReac Type Severity Reaction Status Date / Time peach [PEACH] Allergy Severe ANAPHYLAXIS Verified 12/05/23 18:34 Review of Systems Constitutional: Constitutional: Denies body ache(s), Denies chills and Denies fever(s) ENT: Denies sore throat Cardiovascular: Cardiovascular: Denies chest pain, Reports rapid heart rate and Reports dyspnea Respiratory: Respiratory: Reports cough, Reports dyspnea and Reports wheezing Gastrointestinal: Gastrointestinal: Denies abdominal pain, Denies nausea and Denies vomiting Musculoskeletal: Musculoskeletal: Denies back pain Integumentary/Breasts: Skin/Breast: Denies rash Allergic/Immunologic: Allergic/Immunologic: Reports wheezing PMFSH Past Medical History Medical History Tachycardia Seasonal allergies Asthma Family History Family History (Updated 11/23/23 @ 07:30 by Yao Hernandez PA-C) Mother CAD (coronary artery disease), Onset Age: 55 Asthma Social History Social History Housing: House Alcohol intake: never Patient Tobacco Use Status: Never used Tobacco Smoked in Last 30 Days: No e-Cigarette/Vaping Use: Never Used Use of substances other than those prescribed or required for medical reasons: No Advance Directives: No Advance Directives Information Provided: No service: No Current occupational status: unemployed Cognitive needs: No Hearing needs: No Vision needs: No Physical Exam ED Vital Signs: Vital Signs - 24 hr 12/05/23 18:39 12/05/23 19:35 Temperature 97.7 F Pulse Rate 145 H 104 H Respiratory Rate 150 H 18 Blood Pressure 190/91 H Pulse Oximetry 94 Oxygen Delivery Method Room Air BMI result Body Mass Index 25.8 Const General: healthy appearing, comfortable, no acute distress, alert and awake Nutritional Appearance: well nourished Orientation/consciousness: patient oriented x3 HENMT Head: Yes normocephalic and Yes atraumatic Eyes Eyelids: Yes eyelids normal Conjunctivae: conjunctivae normal Sclerae: sclerae normal Corneas: corneas normal Pupils: Equal, round and reactive pupils present EOM: EOMs intact bilaterally Neck Neck: Yes full ROM Resp Other: Faint expiratory wheezing throughout Effort & Inspection: normal respiratory effort, able to speak in complete sentences and not labored Cardio Other: No lower extremity edema Rate: tachycardic Rhythm: regular rhythm Skin General skin exam: elasticity normal Neuro General: patient oriented x3 Cranial nerves: Yes Equal, round and reactive pupils present and Yes Bilaterally intact EOM present Cognition (Neuro): normal cognition Extrem Other: Moving all extremities well without any obvious deformities Course Reevaluation(s) Reevaluation #1: Patient's respirations was entered as 150. I discussed with a nurse who anterior these vital signs. Unfortunately this was a mistake, the respirations were reportedly 22 however the nurse had left for the day and is unable to change them. Adjustments to vital signs can only be edited by the person who entered them. Time: 19:28 Reevaluation #2: Patient's vital signs improved with treatment. He remains slightly tachycardic which is likely related to the albuterol use but is stable for discharge Time: 20:49 Medications Administered Discontinued Medications Generic Name Dose Route Start Last Admin Trade Name Leoq PRN Reason Stop Dose Admin Albuterol Sulfate 2.5 mg 12/05/23 19:28 12/05/23 19:32 Albuterol Sulfate (0.083%) 2.5 Mg/3 Ml Vial.Neb INHALE 12/05/23 19:29 2.5 mg ONCE ONE Administration Magnesium Sulfate/Dextrose 1 gm in 100 mls @ 100 mls/hr 12/05/23 18:41 12/05/23 20:12 Magnesium Sulfate/D5w IV 12/05/23 19:40 Infused ONCE ONE Infusion Medical Decision Making Medical Decision Making [facility] Narrative: 23-year-old male with past medical history significant for asthma presents for evaluation of a sudden onset of shortness of breath. He was reportedly hypoxic for EMS but this improved after a DuoNeb EN route. He denies chest pain but is quite tachycardic to 145. We will get an EKG. He is also quite hypertensive. Will check basic labs. Plan for additional bronchodilator as well as magnesium for smooth muscle relaxer. Plan for viral swabs and consider imaging the patient does not improve however, the patient has no risk factors for PE. He is afebrile in the sudden onset of the symptoms points to reactive airway disease rather than infectious cause Differential Diagnosis Differential Diagnoses: The differential diagnosis associated with the presentation includes Acute asthma exacerbation Hypoxia Acute respiratory failure Pneumonia Bronchitis PE Admission/Observation Consideration of admission/observation: Escalation of care including admission/observation considered Considered for admission as the patient was reportedly hypoxic for EMS, however the patient responded well to treatment and was taken for an ambulation trial without any further hypoxia. He will be discharged with a prescription for prednisone Lab Data MDM Lab Attestation statement: I reviewed the patient's lab results. No leukocytosis or anemia. No significant electrolyte abnormalities. 12/05/23 19:15 12/05/23 19:15 Labs: Lab Results 12/05/23 Range/Units 19:15 WBC 10.8 (4.8-10.8) X10*3/uL RBC 5.10 (4.60-5.80) X10*6/uL Hgb 15.4 (14.0-18.0) g/dl Hct 45.7 (42.0-52.0) % MCV 89.6 (80.0-98.0) fL MCH 30.2 (27.0-33.0) pg MCHC 33.7 (31.0-36.0) g/dl RDW 12.8 (11.0-16.0) % Plt Count 345 (160-400) X10*3/uL MPV 9.8 (9.4-12.4) fL Immature Gran % (Auto) 0.3 (0.0-0.4) % Neut % (Auto) 75.9 H (45-73) % Lymph % (Auto) 14.6 L (20-40) % [place] % (Auto) 4.3 (2-11) % Eos % (Auto) 4.3 H (0-4) % Baso % (Auto) 0.6 (0-2) % Lymph # (Auto) 1.6 (1.2-4.9) X10*3/uL [place] # (Auto) 0.5 (0.1-1.2) X10*3/uL Eos # (Auto) 0.5 H (0.0-0.4) X10*3/uL Baso # (Auto) 0.1 (0.0-0.2) X10*3/uL Abs Immat Gran (auto) 0.03 (0.00-0.03) X10*3/uL Absolute Neuts (auto) 8.2 (2.0-8.3) x10*3/uL Absolute Nucleated RBC 0.000 (0.0-0.012) X10*3/uL Nucleated RBC % (auto) 0.0 (0.0-0.2) /100WBC Sodium 140 (135-145) mmol/L Potassium 3.7 (3.3-5.1) mmol/L Chloride 105 (96-108) mmol/L Carbon Dioxide 26 (22-29) mmol/L Anion Gap 13 (12-20) BUN 11 (9-16) mg/dL Creatinine 0.89 (0.5-1.4) mg/dL Estim Creat Clear Calc 124.8 Estimated GFR > 60 Random Glucose 172 H (60-115) mg/dL Calcium 9.2 (8.4-10.2) mg/dL Magnesium 2.5 (1.6-2.6) mg/dL Influenza Type A (PCR) NEGATIVE (Negative) Influenza Type B (PCR) NEGATIVE (Negative) RSV RNA Qual (PCR) NEGATIVE (Negative) SARS-CoV-2 RNA (RT-PCR) NEGATIVE (Negative) Discharge Plan Discharge Clinical Impression: Asthma with exacerbation Patient Disposition: Home, Self-Care Instructions: Asthma (ED) Additional Instructions: Take prednisone 40 mg daily for the next 5 days. Use your inhalers as prescribed Follow-up with your primary doctor return for new or worsening symptoms Prescriptions: New prednisone 20 mg tablet 40 mg PO DAILY Qty: 10 0RF No Action (DME) Aerochamber Plus Flow-Vu Spacer MISCELLANEOUS DIRECTED fluticasone propionate 50 mcg/actuation spray,suspension 2 spray intranasal DAILY Qty: 16 0RF fluticasone propion-salmeterol [Advair HFA] 230-21 mcg/actuation HFA aerosol inhaler 2 puff inhalation BID 30 Days Qty: 12 3RF cholecalciferol (vitamin D3) 25 mcg (1,000 unit) capsule 25 mcg PO DAILY 90 Days Qty: 90 1RF hydrocortisone 2.5 % cream 1 appl topical BID PRN (Reason: itching) 30 Days Qty: 30 3RF loratadine [Allergy Relief (loratadine)] 10 mg tablet 10 mg PO DAILY 90 Days Qty: 90 2RF levalbuterol tartrate [Xopenex HFA] 45 mcg/actuation HFA aerosol inhaler 2 puff inhalation Q4-6H PRN (Reason: shortness of breath) 30 Days Qty: 15 3RF levalbuterol HCl 0.63 mg/3 mL solution for nebulization 0.63 mg inhalation Q8H PRN (Reason: shortness of breath or wheezing) 30 Days Qty: 90 3RF
[2023-12-05 19:20] LABS: MANUAL DIFF FLAG NO
[2023-12-05 19:23] LABS: Basophils Absolute Auto 0.1 X10*3/uL (0.0-0.2); Basophils Percent Auto 0.6 % (0-2); Eosinophils Absolute Auto 0.5 X10*3/uL (0.0-0.4); Eosinophils Percent Auto 4.3 % (0-4); Hematocrit 45.7 % (42.0-52.0); Hemoglobin 15.4 g/dl (14.0-18.0); Imm Gran Abs Auto 0.03 X10*3/uL (0.00-0.03); Imm Gran Pct Auto 0.3 % (0.0-0.4); Lymphocytes Absolute Auto 1.6 X10*3/uL (1.2-4.9); Lymphocytes Percent Auto 14.6 % (20-40); Mean Corpuscular HGB Conc 33.7 g/dl (31.0-36.0); Mean Corpuscular Hemoglobin 30.2 pg (27.0-33.0); Mean Corpuscular Volume 89.6 fL (80.0-98.0); Mean Platelet Volume 9.8 fL (9.4-12.4); Monocytes Absolute Auto 0.5 X10*3/uL (0.1-1.2); Monocytes Percent Auto 4.3 % (2-11); Neutrophils Absolute Auto 8.2 x10*3/uL (2.0-8.3); Neutrophils Percent Auto 75.9 % (45-73); Platelet Count 345 X10*3/uL (160-400); Red Cell Distribution Width 12.8 % (11.0-16.0); White Blood Count 10.8 X10*3/uL (4.8-10.8)
[2023-12-05] MEDS: Albuterol Sulfate (0.083%) 2.5 MG/3 ML VIAL.NEB INHALE (19:32)
[2023-12-05 19:35] VITALS: PULSE 104; RESP 18; O2SAT 95
[2023-12-05 19:37] LABS: Anion Gap 13 (12-20); Blood Urea Nitrogen 11 mg/dL (9-16); Calcium 9.2 mg/dL (8.4-10.2); Carbon Dioxide 26 mmol/L (22-29); Chloride 105 mmol/L (96-108); Creatinine Clr Calc Pharmacy 124.8; Estimated Glomerular Filt Rate > 60; Glucose Random 172 mg/dL (60-115); Magnesium 2.5 mg/dL (1.6-2.6); Potassium 3.7 mmol/L (3.3-5.1); Sodium 140 mmol/L (135-145)
[2023-12-05 19:58] LABS: Influenza A PCR NEGATIVE (Negative); Influenza B PCR NEGATIVE (Negative); Resp Syncy Virus RNA Qual PCR NEGATIVE (Negative); SARS COV2 PCR INHOUSE NEGATIVE (Negative)
--- NOTE | 2023-12-05 20:48 | MHC.EDTECH ---
Patient walked around ED and no drop in o2 it stayed at 98%
[2023-12-05 21:21] VITALS: BP 00/00; PULSE 0; RESP 0; TEMP -17.7; TEMP 0
== END 2023-12-05 21:22 | disposition home or self-care (01) ==
PROVIDERS: Physician Assistant; Emergency Provider Internal Medicine; PCP Physician Assistant
DX: J45.901 Unspecified asthma with (acute) exacerbation (principal); R00.0 Tachycardia, unspecified; R06.02 Shortness of breath; Z11.52 Encounter for screening for COVID-19; Z20.822 Contact with and (suspected) exposure to COVID-19; Z79.899 Other long term (current) drug therapy
CPT/HCPCS: 0241U; 36415; 80048; 83735; 85025; 93005; 94640; 96365; 96366; 99284; 99285; J3475

== ENCOUNTER → 2023-12-05 18:46 | Outpatient (BNV) | payer OTHER, SELFPAY | PROVIDERS: Emergency Provider Internal Medicine; PCP Physician Assistant; Visit Provider Internal Medicine | DX: R06.02 Shortness of breath (principal); R00.0 Tachycardia, unspecified | CPT/HCPCS: 93010 ==

== ENCOUNTER 2024-02-18 18:41 | Emergency (ER) | payer OTHER, SELFPAY ==
--- NOTE | ~2024-02-18 | XR_ITS ---
EXAMINATION: XR CHEST CLINICAL INFORMATION: Chest pain. Question pneumonia. COMPARISON: Chest x-ray 09/07/2023 TECHNIQUE: Frontal view of the chest was obtained. FINDINGS: No significant abnormality is noted involving the heart, lungs, mediastinum, bony thorax or soft tissues. XR/XR chest 1V IMPRESSION: Unremarkable chest examination.
[2024-02-18 19:08] VITALS: BP 119/77; BP 150/79; PULSE 94; PULSE 95; RESP 20; TEMP 36.6; O2SAT 93; O2SAT 94; BMI 44.6
--- NOTE | 2024-02-18 20:09 | ECG_ITS ---
Test Reason : DYSPENA Blood Pressure : / mmHG Vent. Rate : 096 BPM Atrial Rate : 096 BPM P-R Int : 156 ms QRS Dur : 090 ms QT Int : 336 ms P-R-T Axes : 025 062 012 degrees QTc Int : 424 ms Normal sinus rhythm Normal ECG When compared with ECG of 05-DEC-2023 19:01, No significant change was found Referred By: Yasir Vargas Electronically Signed By:PETR NO MD
--- NOTE | 2024-02-18 20:32 | ED.GENADULT ---
HPI - General Adult General Chief complaint: Dyspnea Stated complaint: SOB, 98% on duo neb Time Seen by Provider: 02/18/24 19:22 Source: patient Mode of arrival: ambulatory Limitations: no limitations History of Present Illness ED Provider: Yasir Vargas PA-C HPI narrative: 23 yold male with pmh of asthma presents to the ED for SOB. Patient states coughing and wheeezing and no improvement with albuterol enbs Related Data Home Medications ?Medication ?Instructions ?Recorded ?Confirmed inhalational spacing device 06/25/20 11/22/23 (Aerochamber Plus Flow-Vu) Previous Rx's ?Medication ?Instructions ?Recorded fluticasone propionate 50 2 spray intranasal DAILY #16 grams 07/21/23 mcg/actuation nasal spray,suspension cholecalciferol (vitamin D3) 25 25 mcg PO DAILY 90 days #90 caps 11/22/23 mcg (1,000 unit) capsule fluticasone propionate 230 2 puff inhalation BID 30 days #12 11/22/23 mcg-salmeterol 21 mcg/actuation grams HFA inhaler (Advair HFA) hydrocortisone 2.5 % topical cream 1 appl topical BID PRN itching 30 11/22/23 days #30 grams loratadine 10 mg tablet (Allergy 10 mg PO DAILY 90 days #90 tabs 11/22/23 Relief (loratadine)) Xopenex HFA 45 mcg/actuation 2 puff inhalation Q4-6H PRN 11/23/23 aerosol inhaler (levalbuterol shortness of breath 30 days #15 tartrate) grams levalbuterol HCl 0.63 mg/3 mL 0.63 mg (3 mL) inhalation Q8H PRN 11/23/23 solution for nebulization shortness of breath or wheezing 30 days #90 mL prednisone 20 mg tablet 40 mg (2 x 20 mg) PO DAILY #10 tabs 12/05/23 albuterol sulfate 90 mcg/actuation 2 puff inhalation QID PRN 02/18/24 aerosol inhaler (ProAir HFA) shortness of breath or wheezing #8.5 grams benzonatate 100 mg capsule 100 mg PO TID PRN cough #15 caps 02/18/24 prednisone 20 mg tablet 40 mg (2 x 20 mg) PO DAILY 5 days 02/18/24 #10 tabs Allergies Allergy/AdvReac Type Severity Reaction Status Date / Time peach [PEACH] Allergy Severe ANAPHYLAXIS Verified 02/18/24 19:12 Review of Systems Review of Systems: coughing, shortness of breath, and wheeszing Yes all other systems are reviewed and are negative FORMERLY [facility], [facility] Past Medical History Medical History Tachycardia Seasonal allergies Asthma Family History Family History (Updated 11/23/23 @ 07:30 by Yao Hernandez PA-C) Mother CAD (coronary artery disease), Onset Age: 55 Asthma Social History Social History Housing: House Alcohol intake: never Patient Tobacco Use Status: Never used Tobacco e-Cigarette/Vaping Use: Never Used Advance Directives: No Advance Directives Information Provided: No service: No Current occupational status: unemployed Cognitive needs: No Hearing needs: No Vision needs: No Physical Exam ED Vital Signs: Vital Signs - 24 hr 02/18/24 19:08 02/18/24 20:37 02/18/24 20:47 Temperature 97.9 F 98.4 F Pulse Rate 95 93 Respiratory Rate 20 16 Blood Pressure 119/77 116/61 Pulse Oximetry 93 95 95 Oxygen Delivery Method Room Air Nasal Cannula Room Air Oxygen Flow Rate 1 02/18/24 20:47 02/18/24 21:51 02/18/24 22:26 Temperature 98.2 F 98.2 F Pulse Rate 85 92 92 Respiratory Rate 18 16 16 Blood Pressure 130/72 130/72 Pulse Oximetry 95 95 Oxygen Delivery Method Room Air Room Air Oxygen Flow Rate BMI result Body Mass Index 44.6 Const General: cooperative, healthy appearing, comfortable, no acute distress, well developed, alert and awake Orientation/consciousness: oriented to person, oriented to place, oriented to time and patient oriented x3 HENMT Head: Yes normal to inspection, Yes No palpable skull fracture present, Yes normocephalic and Yes atraumatic Throat: Yes posterior oropharynx normal, Yes tonsils normal and Yes uvula midline Eyes General: appearance normal, both eyes and all related structures Neck Neck: Yes normal visual inspection, Yes full ROM, Yes no lymphadenopathy, Yes no meningeal signs, Yes trachea midline, Yes supple, No anterior neck swelling and No tender Chest Chest palpation & inspection: normal inspection of the chest and normal palpation of entire chest wall Resp Effort & Inspection: normal respiratory effort and able to speak in complete sentences Auscultation: wheezes expiratory wheezes (diffuse) Cardio Jugular venous distension: no JVD Heart sounds: S1 normal heart sound present and S2 normal heart sound present GI Inspection: Yes normal to inspection Palpation (GI): Soft to palpation, not firm, nontender, no guarding and not rigid General: No CVA tenderness and Yes no CVA tenderness Back/Spine/Pelvis Back: no CVA tenderness, No CVA tenderness and No back tenderness Skin General skin exam: no rashes or lesions noted, elasticity normal and turgor normal Neuro Other: Bottom extremity negative for swelling, pitting edema, or calf tenderness on palpation General: oriented to person, oriented to place, oriented to time, patient oriented x3, gait normal, tone normal, moves all extremities, Normal light touch and pain sensation, no meningeal signs, no focal motor deficits and CN's II-XI intact bilaterally Extrem General: Yes normal to inspection, Yes full ROM and Yes capillary refill normal Psych Appearance: grossly normal, well kempt and not disheveled Course Reevaluation(s) Reevaluation #1: Received patient from [facility] in sign out pending labs and CXR. Labs unremarkable, no evidence of pneumonia on chest xray, feel patient is stable for discharge home. Time: 21:54 Medications Administered Discontinued Medications Generic Name Dose Route Start Last Admin Trade Name Freq PRN Reason Stop Dose Admin Albuterol Sulfate 2.5 mg 02/18/24 20:42 02/18/24 20:47 Albuterol Sulfate (0.083%) 2.5 Mg/3 Ml Vial.Neb INHALE 02/18/24 20:43 2.5 mg ONCE ONE Administration Magnesium Sulfate 2 gm in 50 mls @ 25 mls/hr 02/18/24 20:02 02/18/24 21:59 Magnesium Sulfate/H2o IV 02/18/24 22:01 Infused ONCE ONE Infusion Medical Decision Making Medical Decision Making [facility] Narrative: 23 yold male with pmh of ashtma presents to the ED cough wheezing, or shortness of breath. Patient was given Adderall Atrovent DuoNeb and Solu-Medrol by EMS. Patient on room air was 93%. Patient was given another DuoNeb treatments and magnesium. Ambulatory O2 saturation test shows O2 saturation remained at 95% without any shortness of breath, chest pain, or dizziness. Presently O2 saturation on room air 95%. SIgned out to MARTHA Baumann Differential Diagnosis Differential Diagnoses: The differential diagnosis associated with the presentation includes ( Asthma section, pneumonia, SARS) Admission/Observation Consideration of admission/observation: Escalation of care including admission/observation considered Lab Data 02/18/24 20:32 02/18/24 20:32 Labs: Lab Results 02/18/24 Range/Units 20:32 WBC 10.3 (4.8-10.8) X10*3/uL RBC 5.15 (4.60-5.80) X10*6/uL Hgb 15.5 (14.0-18.0) g/dl Hct 44.9 (42.0-52.0) % MCV 87.2 (80.0-98.0) fL MCH 30.1 (27.0-33.0) pg MCHC 34.5 (31.0-36.0) g/dl RDW 13.6 (11.0-16.0) % Plt Count 328 (160-400) X10*3/uL MPV 9.9 (9.4-12.4) fL Immature Gran % (Auto) 0.2 (0.0-0.4) % Neut % (Auto) 85.3 H (45-73) % Lymph % (Auto) 9.0 L (20-40) % [place] % (Auto) 2.2 (2-11) % Eos % (Auto) 2.8 (0-4) % Baso % (Auto) 0.5 (0-2) % Lymph # (Auto) 0.9 L (1.2-4.9) X10*3/uL [place] # (Auto) 0.2 (0.1-1.2) X10*3/uL Eos # (Auto) 0.3 (0.0-0.4) X10*3/uL Baso # (Auto) 0.1 (0.0-0.2) X10*3/uL Abs Immat Gran (auto) 0.02 (0.00-0.03) X10*3/uL Absolute Neuts (auto) 8.8 H (2.0-8.3) x10*3/uL Absolute Nucleated RBC 0.000 (0.0-0.012) X10*3/uL Nucleated RBC % (auto) 0.0 (0.0-0.2) /100WBC PT 12.9 (11.1-13.3) SEC INR 1.1 (0.9-1.1) APTT 33.2 (26.0-36.8) SEC Sodium 140 (135-145) mmol/L Potassium 3.8 (3.3-5.1) mmol/L Chloride 107 (96-108) mmol/L Carbon Dioxide 20 L (22-29) mmol/L Anion Gap 17 (12-20) BUN 9 (9-16) mg/dL Creatinine 0.72 (0.5-1.4) mg/dL Estim Creat Clear Calc 186.6 Estimated GFR > 60 Random Glucose 129 H (60-115) mg/dL Calcium 10.0 D (8.4-10.2) mg/dL Total Bilirubin 0.5 (0.0-1.0) mg/dL AST 23 (5-37) U/L ALT 29 (0-40) U/L Alkaline Phosphatase 52 (39-117) U/L Troponin I High Sens < 2.7 (<3.5-35.0) ng/L B-Natriuretic Peptide < 10 (<100) pg/mL Total Protein 7.5 (6.5-8.0) g/dL Albumin 4.4 (3.5-5.0) g/dL Influenza Type A (PCR) NEGATIVE (Negative) Influenza Type B (PCR) NEGATIVE (Negative) RSV RNA Qual (PCR) NEGATIVE (Negative) SARS-CoV-2 RNA (RT-PCR) NEGATIVE (Negative) Independent Interpretation I performed an independent interpretation of an: EKG (NOrmal SInus.rhythm. negative STEMI ) Independent Historian Clinical information obtained from an independent historian. History obtained from or confirmed by: Other (patient) External Record Review External record reviewed: Other (prior visits) Prescription Management I considered prescription management with: Other (prednisone, albuterol, tessan palres) Discharge Plan Discharge Clinical Impression: Asthma Patient Disposition: Home, Self-Care Instructions: Asthma (ED) Additional Instructions: REcommend follow with PCP. Return to the ED for any chest pain, shortness of breath, leg swelling calf pain, coughing up blood, chest pain on inspiration, fever, chills, or any other concerning symptoms. Prescriptions: New prednisone 20 mg tablet 40 mg PO DAILY 5 Days Qty: 10 0RF albuterol sulfate [ProAir HFA] 90 mcg/actuation HFA aerosol inhaler 2 puff inhalation QID PRN (Reason: shortness of breath or wheezing) Qty: 8.5 0RF benzonatate 100 mg capsule 100 mg PO TID PRN (Reason: cough) Qty: 15 0RF No Action (DME) Aerochamber Plus Flow-Vu Spacer MISCELLANEOUS DIRECTED prednisone 20 mg tablet 40 mg PO DAILY Qty: 10 0RF fluticasone propionate 50 mcg/actuation spray,suspension 2 spray intranasal DAILY Qty: 16 0RF fluticasone propion-salmeterol [Advair HFA] 230-21 mcg/actuation HFA aerosol inhaler 2 puff inhalation BID 30 Days Qty: 12 3RF cholecalciferol (vitamin D3) 25 mcg (1,000 unit) capsule 25 mcg PO DAILY 90 Days Qty: 90 1RF hydrocortisone 2.5 % cream 1 appl topical BID PRN (Reason: itching) 30 Days Qty: 30 3RF loratadine [Allergy Relief (loratadine)] 10 mg tablet 10 mg PO DAILY 90 Days Qty: 90 2RF levalbuterol tartrate [Xopenex HFA] 45 mcg/actuation HFA aerosol inhaler 2 puff inhalation Q4-6H PRN (Reason: shortness of breath) 30 Days Qty: 15 3RF levalbuterol HCl 0.63 mg/3 mL solution for nebulization 0.63 mg inhalation Q8H PRN (Reason: shortness of breath or wheezing) 30 Days Qty: 90 3RF Interventions: ED Discharge Assessment Last Done: 02/18/24 22:26 Discharge Date/Time: 02/18/24 22:26 Print Language: Vietnamese
[2024-02-18 20:37] VITALS: BP 116/61; PULSE 93; RESP 16; TEMP 36.9; O2SAT 95
[2024-02-18 20:37] LABS: MANUAL DIFF FLAG NO
[2024-02-18 20:38] LABS: Basophils Absolute Auto 0.1 X10*3/uL (0.0-0.2); Basophils Percent Auto 0.5 % (0-2); Eosinophils Absolute Auto 0.3 X10*3/uL (0.0-0.4); Eosinophils Percent Auto 2.8 % (0-4); Hematocrit 44.9 % (42.0-52.0); Hemoglobin 15.5 g/dl (14.0-18.0); Imm Gran Abs Auto 0.02 X10*3/uL (0.00-0.03); Imm Gran Pct Auto 0.2 % (0.0-0.4); Lymphocytes Absolute Auto 0.9 X10*3/uL (1.2-4.9); Mean Corpuscular HGB Conc 34.5 g/dl (31.0-36.0); Mean Corpuscular Hemoglobin 30.1 pg (27.0-33.0); Mean Corpuscular Volume 87.2 fL (80.0-98.0); Mean Platelet Volume 9.9 fL (9.4-12.4); Monocytes Absolute Auto 0.2 X10*3/uL (0.1-1.2); Monocytes Percent Auto 2.2 % (2-11); Neutrophils Absolute Auto 8.8 x10*3/uL (2.0-8.3); Neutrophils Percent Auto 85.3 % (45-73); Platelet Count 328 X10*3/uL (160-400); Red Blood Count 5.15 X10*6/uL (4.60-5.80); Red Cell Distribution Width 13.6 % (11.0-16.0); White Blood Count 10.3 X10*3/uL (4.8-10.8)
--- NOTE | 2024-02-18 20:38 | MHC.EDTECH ---
PATIENT EKG TAKEN AND WAS READ BY PROVIDER ,BLOOD DRAWN AND RSV/COVID SWAB COLLECTED ALL SENT TO LAB ,PATIENT WAS HOOKED UP TO MEDICAL ONCOLOGIST AND VITALS TAKEN .
[2024-02-18 20:43] LABS: INTERNATIONAL NORM RATIO 1.1 (0.9-1.1); Prothrombin Time 12.9 SEC (11.1-13.3)
--- NOTE | 2024-02-18 20:45 | MHC.EDTECH ---
ambulation trial ,patient o2 sat remain at 95 % on room air ,Provider aware .
[2024-02-18 20:46] LABS: Partial Thromboplastin Time 33.2 SEC (26.0-36.8)
[2024-02-18 20:47] VITALS: PULSE 85; RESP 18; O2SAT 95
[2024-02-18] MEDS: Albuterol Sulfate (0.083%) 2.5 MG/3 ML VIAL.NEB INHALE (20:47)
[2024-02-18] MEDS: Magnesium Sulfate/H2O 2 GM/50 ML PIGGYBACK IV (20:48)
[2024-02-18 21:02] LABS: Alanine Aminotransferase 29 U/L (0-40); Albumin Level 4.4 g/dL (3.5-5.0); Alkaline Phosphatase 52 U/L (39-117); Anion Gap 17 (12-20); Aspartate Amino Transferase 23 U/L (5-37); Bilirubin Total 0.5 mg/dL (0.0-1.0); Blood Urea Nitrogen 9 mg/dL (9-16); Carbon Dioxide 20 mmol/L (22-29); Chloride 107 mmol/L (96-108); Creatinine Clr Calc Pharmacy 186.6; Estimated Glomerular Filt Rate > 60; Glucose Random 129 mg/dL (60-115); Potassium 3.8 mmol/L (3.3-5.1); Sodium 140 mmol/L (135-145); Total Protein 7.5 g/dL (6.5-8.0)
[2024-02-18 21:08] LABS: B Type Natriuretic Peptide < 10 pg/mL (<100)
[2024-02-18 21:11] LABS: Troponin-I High Sensitivity < 2.7 ng/L (<3.5-35.0)
[2024-02-18 21:15] LABS: Influenza A PCR NEGATIVE (Negative); Influenza B PCR NEGATIVE (Negative); Resp Syncy Virus RNA Qual PCR NEGATIVE (Negative); SARS COV2 PCR INHOUSE NEGATIVE (Negative)
--- NOTE | 2024-02-18 21:47 | PC.NURSE ---
pt reporting he is feeling better, denies SOB and CP
[2024-02-18 21:51] VITALS: BP 130/72; PULSE 92; RESP 16; TEMP 36.8; O2SAT 95
[2024-02-18 22:26] VITALS: BP 130/72; PULSE 92; RESP 16; TEMP 36.8; O2SAT 95
== END 2024-02-18 22:26 | disposition home or self-care (01) ==
PROVIDERS: Physician Assistant; Emergency Provider Emergency Medicine; PCP Physician Assistant
DX: J45.909 Unspecified asthma, uncomplicated (principal); R05.9 Cough, unspecified; R06.02 Shortness of breath; Z03.818 Encounter for observation for suspected exposure to other biological agents ruled out
CPT/HCPCS: 0241U; 36415; 71045; 80053; 83880; 84484; 85025; 85610; 85730; 93005; 94640; 96365; 99284; J3475

== ENCOUNTER → 2024-02-18 20:09 | Outpatient (BNV) | payer SELFPAY | PROVIDERS: Emergency Provider Emergency Medicine; PCP Physician Assistant; Visit Provider Internal Medicine Cardiovascular Disease | DX: R06.02 Shortness of breath (principal) | CPT/HCPCS: 93010 ==

== ENCOUNTER 2024-04-24 10:59 | Outpatient (AMB) | payer OTHER, SELFPAY ==
[2024-04-24 11:23] VITALS: BP 126/90; PULSE 82; O2SAT 97; BMI 45.0
--- NOTE | 2024-04-24 11:23 | A.OFFPC_ITS ---
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 Accompanied by: Mother Allergies peach [PEACH] Allergy (Severe, Verified 04/24/24 11:33) ANAPHYLAXIS Medication List - Last Reconciled 04/24/24 by Yao Hernandez PA-C albuterol sulfate 90 mcg/actuation (ProAir HFA) 2 puffs inhalation QID PRN cholecalciferol (vitamin D3) 25 mcg PO DAILY 90 days fluticasone propion-salmeterol 230-21 mcg/actuation (Advair HFA) 2 puffs inhalation BID 30 days fluticasone propionate 50 mcg/actuation 2 sprays intranasal DAILY hydrocortisone 2.5% 1 appl topical BID PRN 30 days inhalational spacing device (Aerochamber Plus Flow-Vu) levalbuterol HCl 0.63 mg (3 mL) inhalation Q8H PRN 30 days loratadine (Allergy Relief (loratadine)) 10 mg PO DAILY 90 days Xopenex HFA 45 mcg/actuation (levalbuterol tartrate) 2 puffs inhalation Q4-6H PRN 30 days NS Tobacco use date assessed: 11/22/23 Dental Screening Dental Screen Date: 11/22/23 [facility] annual exam HPI Details Patient is a 23-year-old male here today for a routine annual physical. Patient has a past medical history significant for moderate persistent asthma and vitamin-D deficiency along with obesity. Concern--> reports having bilateral hand pain for few weeks now. Also is concerned about STD as he reports a lesion on his lip. He is requesting STD screening. .. Asthma: He reports asthma has been better controlled with maintenance inhaler Advair and p.r.n. use Xopenex. He reports he has asthma since a child. His mother does report meconium aspiration during childbirth. .. Obesity: He does understand his BMI is over 40 will try to work on being more physically active and adapt to better eating habits to reduce his weight. . Social anxiety: He does suffer from social anxiety. Not interested in medication though is willing to speak with a mental health therapist. Vaccines: Up-to-date with pneumonia vaccine, tetanus vaccine, Decline COVID vaccine . Laboratory Tests 11/23/23 12/05/23 02/18/24 09:47 19:15 20:32 RBC 5.15 Hgb 15.5 Creatinine 0.72 Random Glucose 172 H 129 H IgE A-Subunit IgG Ab 27 [facility] Medical History Tachycardia Seasonal allergies Asthma Family History (Updated 04/24/24 @ 11:38 by Yao Hernandez PA-C) Mother CAD (coronary artery disease), Onset Age: 55 Asthma Father DMII (diabetes mellitus, type 2) Social History (Updated 04/24/24 @ 11:39 by Yao Hernandez PA-C) Housing: House Alcohol intake: current Alcohol intake frequency: holidays/special occasions only Patient Tobacco Use Status: Never used Tobacco e-Cigarette/Vaping Use: Never Used Substance Use Type: Marijuana service: No Current occupational status: unemployed Cognitive needs: No Hearing needs: No Vision needs: No Questionnaire Thrive Questionnaire Date Thrive assessed: 11/22/23 CUCO-7 AMB Questionnaire CUCO-7 Date CUCO - 7 assessed: 11/22/23 Source: Developed by Drs. Noah Castro, Kirsty Stevenson, Rhett Waddell and colleagues, with an educational nicole from [employer]. ACT Questionnaire In the past 4 weeks, how much of the time did your asthma keep you from getting as much done at work, school or at home?: None of the time During the past 4 weeks, how often have you had shortness of breath?: 1-2 times a week During the past 4 weeks, how often did your asthma symptoms wake you up at night or earlier than usual in the morning?: Not at all During the past 4 weeks, how often have you had to use your rescue inhaler or nebulizer medication?: Once a week or less How would you rate your asthma control during the past 4 weeks?: Well controlled ACT Interpretation: Negative Score: 22 Review of Systems Const Denies body aches, Denies chills, Denies excessive sweating, Denies fatigue, Denies fever(s) and Denies headache(s) Eyes Denies blurry vision ENT Denies dysphagia, Denies vertigo, Denies dizziness, Denies headache(s), Denies hearing loss and Denies tinnitus Card Denies chest pain, Denies chest pain with activity, Denies syncope, Denies irregular heart rhythm and Denies dyspnea Resp Denies chest congestion, Denies cough, Denies hemoptysis, Denies dyspnea and Denies wheezing GI Denies abdominal pain, Denies melena, Denies hematochezia, Denies coffee ground emesis, Denies dysphagia, Denies diarrhea, Denies nausea and Denies vomiting Denies difficulty urinating, Denies dysuria, Denies urinary frequency, Denies urinary hesitancy and Denies urinary urgency Musc Denies arthralgias, Denies limited range of motion, Denies muscle cramps and Denies muscle weakness Skin/Breast Denies rash and Denies skin ulcer Neuro Denies Abnormal speech present, Denies confusion, Denies vertigo, Denies dizziness, Denies syncope, Denies headache(s), Denies memory loss and Denies seizure-like activity Psych Denies anxiety, Denies confusion, Denies depression, Denies memory loss, Denies panic attacks and Denies paranoia Endo Denies excessive sweating, Denies fatigue, Denies flushing, Denies polydipsia and Denies polyuria Aller/Immun Denies wheezing Physical exam (Primary Care) Vital Signs: Last Vital Signs Pulse 82 04/24/24 11:23 BP 126/90 H 04/24/24 11:23 Pulse Ox 97 04/24/24 11:23 Oxygen Delivery Method Room Air 04/24/24 11:23 BMI result Body Mass Index 45.0 Tobacco/Smoking Status: Tobacco use Status Tobacco use date assessed 11/22/23 04/24/24 11:32 Patient Tobacco Use Status Never used Tobacco 04/24/24 11:39 e-Cigarette/Vaping Use Never Used 04/24/24 11:39 Thrive Assessment: Date of Thrive Assessment Date Thrive assessed 11/22/23 04/24/24 11:32 Const General: cooperative, comfortable, no acute distress, alert and awake; No confusion Orientation/consciousness: oriented to person, oriented to place, patient oriented x3 and No confusion HENMT Head: Yes normocephalic Ears: external ears normal and TM's normal bilaterally Face and sinus: No sinus tenderness Mouth: Normal oral and palatal mucosa present and tongue normal Teeth and gingiva: dentition normal and gingiva normal Throat: Yes posterior oropharynx normal, Yes tonsils normal and Yes uvula midline Eyes Conjunctivae: conjunctivae normal Sclerae: sclerae normal Pupils: Equal, round and reactive pupils present EOM: EOMs intact bilaterally Direct Ophthalmoscopy: No no photophobia Neck Neck: Yes no lymphadenopathy, No tender and Yes no JVD Thyroid: Thyroid normal Carotids: no bruits Chest Chest palpation & inspection: no tenderness Resp Effort & Inspection: normal respiratory effort, no audible wheezes, not labored and no stridor Auscultation: no crackles, no rales, no rhonchi and no wheezes Cardio Jugular venous distension: no JVD Rate: regular rate, not bradycardic and not tachycardic Rhythm: regular rhythm Bruits: no carotid bruits Peripheral pulses: Peripheral pulses 2+ throughout GI Inspection: Yes normal to inspection, No abdominal wall ecchymosis and No visible herniation Palpation (GI): Soft to palpation, nontender, no guarding, not rigid and No hepatosplenomegaly present Auscultation: normoactive bowel sounds General: Yes no CVA tenderness Back/Spine/Pelvis Back: no CVA tenderness and No back tenderness Cervical Spine: cervical ROM normal Thoracic/Lumbar Spine: thoracic and lumbar spine normal to inspection, straight leg raise negative bilaterally, No thoraco-lumbar ROM limited and No lumbar spinal tenderness Skin Lesions: no lesions Rashes: no rashes Wounds: no wounds Neuro General: oriented to person, oriented to place, patient oriented x3, CN's II-XI intact bilaterally and No confusion Cranial nerves: Yes Equal, round and reactive pupils present and Yes Normal accommodation reflex present Cognition (Neuro): normal cognition Speech: No Abnormal speech present Gait exam (Neuro): Normal gait present Motor exam (neuro): 5/5 motor strength present throughout Extrem Right upper extremity: full ROM; no cyanosis Left upper extremity: full ROM; no cyanosis Right lower extremity: no edema Left lower extremity: no edema Psych Appearance: grossly normal Mental Status: mental status grossly normal Affect: normal affect Attitude: cooperative Thought process: Normal thought process present Assessment and Plan Assessment & Plan (1) Annual physical exam: Code(s): Z00.00 - Encounter for general adult medical examination without abnormal findings (2) Asthma: Code(s): J45.909 - Unspecified asthma, uncomplicated Qualifiers: Asthma complication type: unspecified Asthma persistence: intermittent Asthma severity: mild Qualified Code(s): J45.20 - Mild intermittent asthma, uncomplicated Plan: Patient reports his asthma has been much better since regular use of his Advair and p.r.n. use of his Xopenex. Has not had any recent asthma exacerbations or nighttime awakenings with asthma symptoms. (3) Screening for diabetes mellitus (DM): Code(s): Z13.1 - Encounter for screening for diabetes mellitus (4) CUCO (generalized anxiety disorder): Code(s): F41.1 - Generalized anxiety disorder Plan: Patient's CUCO-7 score positive for anxiety which has been existing condition for him. He is interested in setting up appointment with a mental therapist work with him on his anxiety. (5) Obese: Code(s): E66.9 - Obesity, unspecified Qualifiers: Body mass index: BMI 40.0-44.9 Obesity classification: adult class 3 (BMI >= 40) Obesity type: due to excess calories Serious obesity comorbidity presence: without serious comorbidity Qualified Code(s): E66.01 - Morbid (severe) obesity due to excess calories; Z68.41 - Body mass index [BMI] 40.0-44.9, adult Plan: Patient does understand his BMI is over 40 will work on being more physically active and adapting to better eating habits to reduce his weight (6) Encounter for screening examination for sexually transmitted disease: Code(s): Z11.3 - Encounter for screening for infections with a predominantly sexual mode of transmission (7) Bilateral hand pain: Code(s): M79.641 - Pain in right hand; M79.642 - Pain in left hand Plan: Reports bilateral hand pain over the last few weeks. Will send for rheumatology testing and x-rays of his hands evaluate for psoriatic versus osteoarthritis . Orders: Orders HIV Ab/Ag Today Z11.3 - Encounter for screening for infections with a predominantly sexual mode of transmission XR hand LT 2V Today M79.641 - Pain in right hand, M79.642 - Pain in left hand CT NG by PCR Today Z11.3 - Encounter for screening for infections with a predominantly sexual mode of transmission, Z20.2 - Contact with and (suspected) exposure to infections with a predominantly sexual mode of transmission XR hand RT 2V Today M79.641 - Pain in right hand, M79.642 - Pain in left hand GUILLERMINA Reflex Titer and Pattern Today M79.641 - Pain in right hand, M79.642 - Pain in left hand Rheumatoid Factor Today M79.641 - Pain in right hand, M79.642 - Pain in left hand Cyclic Citrullinated Peptide Today M79.641 - Pain in right hand, M79.642 - Pain in left hand Comprehensive Bovey. Panel Fast Today Z13.1 - Encounter for screening for diabetes mellitus Syphilis Screen Today Z11.3 - Encounter for screening for infections with a predominantly sexual mode of transmission Herpes Simplex Virus Ab IgG Today Z11.3 - Encounter for screening for infections with a predominantly sexual mode of transmission Medications: Refilled cholecalciferol (vitamin D3) 25 mcg PO DAILY 90 caps 1RF 90 days E55.9 - Vitamin D deficiency, unspecified fluticasone propion-salmeterol 230-21 mcg/actuation (Advair HFA) 2 puffs inhalation BID 12 grams 3RF 30 days J45.40 - Moderate persistent asthma, unco mplicated fluticasone propionate 50 mcg/actuation 2 sprays intranasal DAILY 16 grams 0RF Xopenex HFA 45 mcg/actuation (levalbuterol tartrate) 2 puffs inhalation Q4-6H PRN 15 grams 3RF shortness of breath 30 days NS J30.2 - Other seasonal allergic rhinitis, J45.909 - Unspecified asthma, uncomplicated, R00.0 - Tachycardia, unspecified hydrocortisone 2.5% 1 appl topical BID PRN 30 grams 3RF itching 30 days E55.9 - Vitamin D deficiency, unspecified, L30.9 - Dermatitis, unspecified levalbuterol HCl 0.63 mg (3 mL) inhalation Q8H PRN 90 mL 3RF shortness of breath or wheezing 30 days J45.40 - Moderate persistent asthma, uncomplicated loratadine (Allergy Relief (loratadine)) 10 mg PO DAILY 90 tabs 2RF 90 days J45.40 - Moderate persistent asthma, uncomplicated Coding Level of Care Code Est Pt Prev Care [id number]([id number]) Diagnoses Annual physical exam Z00.00 Mild intermittent asthma, unspecified whether complicated J45.20 Asthma complication type: unspecified Asthma persistence: intermittent Asthma severity: mild Screening for diabetes mellitus (DM) Z13.1 CUCO (generalized anxiety disorder) F41.1 Class 3 severe obesity due to excess calories without serious comorbidity with body mass index (BMI) of 40.0 to 44.9 in adult E66.01; Z68.41 Body mass index: BMI 40.0-44.9 Obesity classification: adult class 3 (BMI >= 40) Obesity type: due to excess calories Serious obesity comorbidity presence: without serious comorbidity Encounter for screening examination for sexually transmitted disease Z11.3 Bilateral hand pain M79.641; M79.642
== END 2024-04-24 11:58 | disposition home or self-care (01) ==
PROVIDERS: PCP Physician Assistant; Visit Provider Physician Assistant
DX: Z00.00 Encounter for general adult medical examination without abnormal findings (principal); E66.01 Morbid (severe) obesity due to excess calories; Z68.41 Body mass index [BMI] 40.0-44.9, adult; J45.20 Mild intermittent asthma, uncomplicated; Z13.1 Encounter for screening for diabetes mellitus; F41.1 Generalized anxiety disorder; Z11.3 Encounter for screening for infections with a predominantly sexual mode of transmission; M79.641 Pain in right hand; M79.642 Pain in left hand
CPT/HCPCS: 99395

== ENCOUNTER 2024-05-23 08:38 | Outpatient (REF) | payer OTHER, SELFPAY ==
--- NOTE | ~2024-05-23 | XR_ITS ---
EXAMINATION: XR HAND, RIGHT XR HAND, LEFT CLINICAL INFORMATION: Right and left hand pain. COMPARISON: None available. TECHNIQUE: PA, lateral, and oblique views of the left hand. FINDINGS: Right hand: No fracture or dislocation. Normal carpal alignment. No significant joint space narrowing or marginal osteophytes. No osseous erosion. No periarticular osteopenia. No abnormal soft tissue calcification. Left hand: No fracture or dislocation. Normal carpal alignment. No significant joint space narrowing or marginal osteophytes. No osseous erosion. No periarticular osteopenia. No abnormal soft tissue calcification. XR/XR hand LT 2V IMPRESSION: RIGHT HAND: Unremarkable examination. LEFT HAND: Unremarkable examination. Electronically signed by: Brendan Beach MD 05/29/2024 11:55 AM EDT
--- NOTE | ~2024-05-23 | XR_ITS ---
EXAMINATION: XR HAND, RIGHT XR HAND, LEFT CLINICAL INFORMATION: Right and left hand pain. COMPARISON: None available. TECHNIQUE: PA, lateral, and oblique views of the left hand. FINDINGS: Right hand: No fracture or dislocation. Normal carpal alignment. No significant joint space narrowing or marginal osteophytes. No osseous erosion. No periarticular osteopenia. No abnormal soft tissue calcification. Left hand: No fracture or dislocation. Normal carpal alignment. No significant joint space narrowing or marginal osteophytes. No osseous erosion. No periarticular osteopenia. No abnormal soft tissue calcification. XR/XR hand RT 2V IMPRESSION: RIGHT HAND: Unremarkable examination. LEFT HAND: Unremarkable examination. Electronically signed by: Brendan Beach MD 05/29/2024 11:55 AM EDT
[2024-05-23 10:54] LABS: Alanine Aminotransferase 43 U/L (0-40); Albumin Level 4.6 g/dL (3.5-5.0); Alkaline Phosphatase 58 U/L (39-117); Anion Gap 11 (12-20); Aspartate Amino Transferase 23 U/L (5-37); Bilirubin Total 0.5 mg/dL (0.0-1.0); Blood Urea Nitrogen 10 mg/dL (9-16); Calcium 9.9 mg/dL (8.4-10.2); Carbon Dioxide 27 mmol/L (22-29); Chloride 106 mmol/L (96-108); Estimated Glomerular Filt Rate > 60; Glucose Fasting 91 mg/dL (60-99); Potassium 3.9 mmol/L (3.3-5.1); Sodium 140 mmol/L (135-145); Total Protein 7.9 g/dL (6.5-8.0)
[2024-05-23 10:57] LABS: Rheumatoid Factor < 13.0 IU/mL (<15.0)
[2024-05-23 11:20] LABS: HIV AB/AG Nonreactive (Nonreactive); HIV Num 1 0.05 S/CO (0.00-0.99); Syphilis Screen Nonreactive (Nonreactive)
[2024-05-23 11:56] LABS: CT PCR NOT DETECTED (Not Detect.); NG PCR NOT DETECTED (Not Detect.)
[2024-05-24 09:14] LABS: Herpes Simplex Type 1 IgG >58.00 index; Herpes Simplex Type 2 IgG <0.90 index
[2024-05-27 11:50] LABS: Anti Nuclear Antibody Screen NEGATIVE (NEGATIVE)
[2024-05-28 11:28] LABS: Cyclic Citrullinated Peptide <16 UNITS
== END 2024-05-23 08:39 | disposition home or self-care (01) ==
LOC: HO.XRAY 08:38
PROVIDERS: PCP Physician Assistant; Visit Provider Physician Assistant
DX: M79.641 Pain in right hand (principal); M79.642 Pain in left hand; Z11.3 Encounter for screening for infections with a predominantly sexual mode of transmission; Z20.2 Contact with and (suspected) exposure to infections with a predominantly sexual mode of transmission; Z13.1 Encounter for screening for diabetes mellitus
CPT/HCPCS: 73120; 80053; 86038; 86200; 86431; 86695; 86696; 86780; 87389; 87491; 87591

== ENCOUNTER 2024-06-14 18:45 | Emergency (ER) | payer OTHER, SELFPAY ==
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
[2024-06-14 18:54] VITALS: BP 152/99; BP 157/103; PULSE 120; PULSE 129; RESP 22; TEMP 37.4; O2SAT 94; O2SAT 97; BMI 44.6
[2024-06-14] MEDS: Albuterol Sulfate 5 MG, Albuterol/Iprat 2.5/0.5MG 3 ML 3 ML INHALE (19:08)
[2024-06-14] MEDS: Magnesium Sulfate/H2O 2 GM/50 ML PIGGYBACK IV (19:10)
[2024-06-14] MEDS: 0.9 % Sodium Chloride 1,000 ML 999 ML IV (19:10)
[2024-06-14 19:12] VITALS: PULSE 122; RESP 22; O2SAT 95
[2024-06-14 20:49] VITALS: BP 153/91; PULSE 113; RESP 23; TEMP 36.9; O2SAT 97
[2024-06-14 22:38] VITALS: BP 144/69; PULSE 95; RESP 18; TEMP 37.1; O2SAT 97
[2024-06-14 23:27] VITALS: BP 144/69; PULSE 95; RESP 18; TEMP 37.1; O2SAT 97
== END 2024-06-14 23:28 | disposition home or self-care (01) ==
PROVIDERS: Emergency Provider Internal Medicine; PCP Physician Assistant
DX: J45.901 Unspecified asthma with (acute) exacerbation (principal)
CPT/HCPCS: 94640; 96374; 99284; J3475

== ENCOUNTER 2024-07-14 10:00 | Emergency (ER) | payer OTHER, SELFPAY ==
--- NOTE | ~2024-07-14 | XR_ITS ---
EXAMINATION: XR CHEST CLINICAL INFORMATION: Cough and shortness of breath COMPARISON: Chest x-rays of 02/18/2024 and 09/07/2023 TECHNIQUE: 2 views of the chest were obtained. FINDINGS: Cardiomediastinal silhouette is stable and normal. No abnormal tracheal deviation. Stable mild elevation of the right hemidiaphragm. Lungs are mildly hyperinflated. No focal consolidation, changes of congestion, pleural effusions or pneumothorax are seen. Regional skeleton is intact. Visualized upper abdomen is unremarkable. An EKG lead is noted projecting over the right mid chest medially in the perihilar location. XR/XR chest 2V IMPRESSION: No radiographic evidence of pneumonia or pulmonary edema. No acute pulmonary process. Electronically signed by: Robin Jacinto MD 07/14/2024 10:50 AM EDT
[2024-07-14 10:09] VITALS: PULSE 100; O2SAT 98
--- NOTE | 2024-07-14 10:09 | ED_ITS ---
HPI - General Adult General Chief complaint: Upper Respiratory Symptoms Stated complaint: SOB Time Seen by Provider: 07/14/24 10:08 Source: patient and EMS Mode of arrival: EMS Limitations: no limitations History of Present Illness ED Provider: Stephanie Corado PA-C HPI narrative: Patient is a 24 year old assigned male at with a history of CUCO, asthma, and insomnia presenting to the emergency department today with chest wall pain and a cough. Patient states that he has been having a productive cough and chest wall pain over the last 3 days and he believes it got worse yesterday after oven use. Patient denies any dizziness, lightheadedness, abdominal pain, nausea, vomiting, fever, chills, blurry vision, double vision, loss of vision, back pain, night sweats, pain with urination, increased urinary frequency, increased urinary urgency, blood in his urine or stool, syncope or a near syncopal episode, recent trauma or falls, bowel incontinence, bladder incontinence, or any other complaints at this time. Onset (ago): day(s) (3) Relieving factors: none Exacerbating factors: none Associated symptoms: chest pain and cough Related Data Home Medications ?Medication ?Instructions ?Recorded ?Confirmed inhalational spacing device 06/25/20 11/22/23 (Aerochamber Plus Flow-Vu) Previous Rx's ?Medication ?Instructions ?Recorded albuterol sulfate 90 mcg/actuation 2 puff inhalation QID PRN 02/18/24 aerosol inhaler (ProAir HFA) shortness of breath or wheezing #8.5 grams Xopenex HFA 45 mcg/actuation 2 puff inhalation Q4-6H PRN 04/24/24 aerosol inhaler (levalbuterol shortness of breath 30 days #15 tartrate) grams cholecalciferol (vitamin D3) 25 25 mcg PO DAILY 90 days #90 caps 04/24/24 mcg (1,000 unit) capsule fluticasone propionate 230 2 puff inhalation BID 30 days #12 04/24/24 mcg-salmeterol 21 mcg/actuation grams HFA inhaler (Advair HFA) fluticasone propionate 50 2 spray intranasal DAILY #16 grams 04/24/24 mcg/actuation nasal spray,suspension hydrocortisone 2.5 % topical cream 1 appl topical BID PRN itching 30 04/24/24 days #30 grams levalbuterol HCl 0.63 mg/3 mL 0.63 mg (3 mL) inhalation Q8H PRN 04/24/24 solution for nebulization shortness of breath or wheezing 30 days #90 mL loratadine 10 mg tablet (Allergy 10 mg PO DAILY 90 days #90 tabs 04/24/24 Relief (loratadine)) albuterol sulfate 2.5 mg/3 mL 2.5 mg (3 mL) inhalation Q4-6H PRN 06/14/24 (0.083 %) solution for nebulization shortness of breath or wheezing #90 mL albuterol sulfate 90 mcg/actuation 2 puff inhalation Q6H PRN 06/14/24 aerosol inhaler shortness of breath or wheezing #8.5 grams prednisone 20 mg tablet 40 mg (2 x 20 mg) PO DAILY #10 tabs 06/14/24 prednisone 20 mg tablet 20 mg PO DAILY 7 days #7 tabs 07/14/24 Allergies Allergy/AdvReac Type Severity Reaction Status Date / Time peach [PEACH] Allergy Severe ANAPHYLAXIS Verified 07/14/24 10:11 Review of Systems Constitutional: Constitutional: Reports no additional constitutional complaints, Denies chills, Denies fever(s) and Denies night sweats Eyes: Eyes: Reports no additional eye complaints, Denies blurry vision, Denies change in vision, Denies diplopia, Denies eye discharge, Denies loss of vision and Denies eye pain ENT: Denies dizziness Cardiovascular: Cardiovascular: Reports no additional cardiovascular complaints, Reports chest pain, Denies lightheadedness, Denies Loss of Consciousness and Denies dyspnea Respiratory: Respiratory: Reports no additional respiratory complaints, Reports cough, Denies dyspnea and Reports wheezing Gastrointestinal: Gastrointestinal: Reports no additional gastrointestinal complaints, Denies abdominal pain, Denies melena, Denies hematochezia, Denies change in bowel habits and Denies change in stool character Genitourinary: Genitourinary: Reports no additional male genitourinary complaints, Denies hematuria, Denies oliguria, Denies difficulty urinating, Denies dysuria, Denies urinary frequency, Denies urinary hesitancy, Denies urinary incontinence and Denies urinary urgency Musculoskeletal: Musculoskeletal: Reports no additional musculoskeletal complaints, Denies numbness and Denies tingling Neurologic: Denies dizziness, Denies loss of vision, Denies numbness and Denies tingling Psychiatric: Psychiatric: Reports no additional psychiatric complaints Endocrine: Endocrine: Reports no additional endocrine complaints Hematologic/Lymphatic: Hematologic/Lymphatic: Reports no additional hematologic/lymphatic complaints Allergic/Immunologic: Allergic/Immunologic: Reports no additional allergic/immunologic complaints and Reports wheezing PMFSH Past Medical History Attestation statement: The following information was validated with the patient. Source: old records reviewed and nursing notes reviewed Medical History Tachycardia Seasonal allergies Asthma Family History Family History Mother CAD (coronary artery disease), Onset Age: 55 Asthma Father DMII (diabetes mellitus, type 2) Social History Social History Housing: House Alcohol intake: current Alcohol intake frequency: holidays/special occasions only Patient Tobacco Use Status: Never used Tobacco e-Cigarette/Vaping Use: Never Used Substance Use Type: Marijuana Advance Directives: No Advance Directives Information Provided: Yes Do you have a plan to hurt others: No Plan service: No Current occupational status: unemployed Cognitive needs: No Hearing needs: No Vision needs: No Physical Exam ED Vital Signs: Vital Signs - 24 hr 07/14/24 10:11 07/14/24 10:26 07/14/24 11:33 Temperature 98.9 F 98.4 F Pulse Rate 99 87 98 Respiratory Rate 18 18 18 Blood Pressure 141/84 H 139/82 Pulse Oximetry 97 98 Oxygen Delivery Method Room Air Room Air BMI result Body Mass Index 43.3 Const General: cooperative, no acute distress, alert and awake Nutritional Appearance: well nourished Orientation/consciousness: patient oriented x3 Limitations: no limitations HENMT Head: Yes normal to inspection and Yes atraumatic Ears: hearing grossly normal bilaterally and external ears normal General nose exam: Normal external nose present, no nasal discharge noted and no epistaxis Face and sinus: Yes normal facial exam, No abrasion and No laceration Mouth: Normal oral and palatal mucosa present, no drooling and no muffled voice Eyes General: appearance normal, both eyes and all related structures Periorbital: periorbital findings normal Eyelids: Yes eyelids normal Conjunctivae: conjunctivae normal Pupils: Equal, round and reactive pupils present EOM: EOMs intact bilaterally Neck Neck: Yes normal visual inspection, Yes full ROM and Yes no lymphadenopathy Chest Chest palpation & inspection: normal inspection of the chest Resp Effort & Inspection: normal respiratory effort and able to speak in complete sentences Auscultation: wheezes scattered wheezes and throughout GI Inspection: Yes normal to inspection Neuro General: patient oriented x3 and moves all extremities Cranial nerves: Yes Equal, round and reactive pupils present Cognition (Neuro): normal cognition Extrem General: Yes normal to inspection, Yes full ROM and Yes capillary refill normal Psych Appearance: grossly normal Mental Status: mental status grossly normal Affect: normal affect Attitude: cooperative Thought process: Normal thought process present Thought content: Normal thought content present Insight: Good insight present (Psych) Medications Administered Discontinued Medications Generic Name Dose Route Start Last Admin Trade Name Freq PRN Reason Stop Dose Admin Albuterol/Ipratropium 3 ml 07/14/24 10:20 07/14/24 10:23 Albuterol/Iprat 2.5/0.5mg 3 Ml Ampul.Neb INHALE 07/14/24 10:21 3 ml ONCE ONE Administration Methylprednisolone Sodium Succinate 60 mg 07/14/24 10:11 07/14/24 10:21 Methylprednisolone Sod Succ 125 Mg/2 Ml Vial IVPUSH 07/14/24 10:12 60 mg ONCE ONE Administration Medical Decision Making Medical Decision Making [facility] Narrative: Patient is a 24 year old assigned male at with a history of CUCO, asthma, and insomnia presenting to the emergency department today with chest wall pain and a cough. Patient's physical exam was as noted in the physical exam portion of this note. Patient's chest x-ray showed no acute process. I explained my physical exam findings as well as all test results to the patient. I answered all questions asked by the patient. Patient received IV Solu-medrol which, upon re-evaluation, he stated it helped his symptoms significantly. I stressed the importance of the patient taking his medication as directed (either prescribed or as the over the counter packaging recommends). I stressed the importance of the patient following up with his primary care provider. I stressed the importance of the patient returning to the emergency department immediately if his symptoms were to worsen or if he were to develop any dizziness, shortness of breath, difficulty breathing, chest pain, blurry vision, loss of vision, na usea, vomiting, abdominal pain, fever, chills, back pain, or any other complaints. Patient verbalized agreement and understanding with this treatment plan and discharge. Differential Diagnosis Differential Diagnoses: The differential diagnosis associated with the presentation includes Cough Asthma exacerbation COVID-19 RSV Influenza Admission/Observation Consideration of admission/observation: Escalation of care including admission/observation considered Patient would have been admitted to the hospital had his work up had any findings where hospital admission was appropriate and his clinical presentation warranted hospital admission. Lab Data MDM Lab Attestation statement: I reviewed the patient's lab results. My interpretation of these studies and their corresponding values is that they are grossly normal. Labs: Lab Results 07/14/24 Range/Units 10:14 Influenza Type A (PCR) NEGATIVE (Negative) Influenza Type B (PCR) NEGATIVE (Negative) RSV RNA Qual (PCR) NEGATIVE (Negative) SARS-CoV-2 RNA (RT-PCR) NEGATIVE (Negative) S. pyogenes GrpA SHELLIE Negative (Negative) Independent Interpretation I performed an independent interpretation of an: Plain X-Ray Interpretation: My interpretation is in agreement with the radiologist's impression of this imaging study. EXAMINATION: XR CHEST CLINICAL INFORMATION: Cough and shortness of breath COMPARISON: Chest x-rays of 02/18/2024 and 09/07/2023 TECHNIQUE: 2 views of the chest were obtained. FINDINGS: Cardiomediastinal silhouette is stable and normal. No abnormal tracheal deviation. Stable mild elevation of the right hemidiaphragm. Lungs are mildly hyperinflated. No focal consolidation, changes of congestion, pleural effusions or pneumothorax are seen. Regional skeleton is intact. Visualized upper abdomen is unremarkable. An EKG lead is noted projecting over the right mid chest medially in the perihilar location. XR/XR chest 2V IMPRESSION: No radiographic evidence of pneumonia or pulmonary edema. No acute pulmonary process. Electronically signed by: Robin Jacinto MD 07/14/2024 10:50 AM EDT Dictated By: Robin Jacinto MD Signed By: Electronically signed by Robin Jacinto MD 07/14/24 1055 Radiology Impression Discussion of test interpretation with radiology: I have reviewed the radiologist's reading. Independent Historian Clinical information obtained from an independent historian. History obtained from or confirmed by: EMS (EMS provided additional history and confirmed the history provided by the patient.) Discharge Plan Discharge Clinical Impression: Asthma Qualifiers: Asthma severity: mild Asthma persistence: intermittent Asthma complication type: unspecified Qualified Code(s): J45.20 - Mild intermittent asthma, uncomplicated Patient Disposition: Home, Self-Care Instructions: Asthma (DC) Additional Instructions: Follow up with your primary care provider. Return to the emergency department immediately if your symptoms worsen or if you develop any dizziness, shortness of breath, difficulty breathing, chest pain, blurry vision, loss of vision, nausea, vomiting, abdominal pain, fever, chills, back pain, or any other complaints. Prescriptions: New prednisone 20 mg tablet 20 mg PO DAILY 7 Days Qty: 7 0RF No Action (DME) Aerochamber Plus Flow-Vu Spacer MISCELLANEOUS DIRECTED albuterol sulfate 2.5 mg /3 mL (0.083 %) solution for nebulization 2.5 mg inhalation Q4-6H PRN (Reason: shortness of breath or wheezing) Qty: 90 0RF prednisone 20 mg tablet 40 mg PO DAILY Qty: 10 0RF albuterol sulfate 90 mcg/actuation HFA aerosol inhaler 2 puff inhalation Q6H PRN (Reason: shortness of breath or wheezing) Qty: 8.5 0RF albuterol sulfate [ProAir HFA] 90 mcg/actuation HFA aerosol inhaler 2 puff inhalation QID PRN (Reason: shortness of breath or wheezing) Qty: 8.5 0RF cholecalciferol (vitamin D3) 25 mcg (1,000 unit) capsule 25 mcg PO DAILY 90 Days Qty: 90 1RF fluticasone propion-salmeterol [Advair HFA] 230-21 mcg/actuation HFA aerosol inhaler 2 puff inhalation BID 30 Days Qty: 12 3RF fluticasone propionate 50 mcg/actuation spray,suspension 2 spray intranasal DAILY Qty: 16 0RF hydrocortisone 2.5 % cream 1 appl topical BID PRN (Reason: itching) 30 Days Qty: 30 3RF levalbuterol HCl 0.63 mg/3 mL solution for nebulization 0.63 mg inhalation Q8H PRN (Reason: shortness of breath or wheezing) 30 Days Qty: 90 3RF loratadine [Allergy Relief (loratadine)] 10 mg tablet 10 mg PO DAILY 90 Days Qty: 90 2RF levalbuterol tartrate [Xopenex HFA] 45 mcg/actuation HFA aerosol inhaler 2 puff inhalation Q4-6H PRN (Reason: shortness of breath) 30 Days Qty: 15 3RF Referrals: Yao Hernandez PA-C [Primary Care Provider] - Stand Alone Forms: Work/School Release Interventions: ED Discharge Assessment Last Done: 07/14/24 11:33 Discharge Date/Time: 07/14/24 11:34 Print Language: Moroccan
[2024-07-14 10:11] VITALS: BP 141/84; PULSE 99; RESP 18; TEMP 37.2; O2SAT 97; BMI 43.3
[2024-07-14] MEDS: methylPREDNISolone Sod Succ 125 MG/2 ML VIAL 60 MG IVPUSH (10:21)
[2024-07-14] MEDS: Albuterol/Iprat 2.5/0.5MG 3 ML AMPUL.NEB INHALE (10:23)
[2024-07-14 10:26] VITALS: PULSE 87; RESP 18; O2SAT 98
[2024-07-14 10:32] LABS: IDNOW Serial# 58CA691E; Strep A Nucleic Acid Negative (Negative)
[2024-07-14 11:01] LABS: Influenza A PCR NEGATIVE (Negative); Influenza B PCR NEGATIVE (Negative); Resp Syncy Virus RNA Qual PCR NEGATIVE (Negative); SARS COV2 PCR INHOUSE NEGATIVE (Negative)
[2024-07-14 11:33] VITALS: BP 139/82; PULSE 98; RESP 18; TEMP 36.9; O2SAT 98
== END 2024-07-14 11:34 | disposition home or self-care (01) ==
PROVIDERS: Physician Assistant Medical; Emergency Provider Emergency Medicine; PCP Physician Assistant
DX: J45.20 Mild intermittent asthma, uncomplicated (principal); R06.02 Shortness of breath; R07.89 Other chest pain; R05.9 Cough, unspecified; Z03.818 Encounter for observation for suspected exposure to other biological agents ruled out; Z79.899 Other long term (current) drug therapy
CPT/HCPCS: 0241U; 71046; 87651; 94640; 96374; 99283; 99284; J2919

== ENCOUNTER 2025-05-07 10:20 | Outpatient (AMB) | payer OTHER, SELFPAY ==
--- NOTE | 2025-05-07 10:23 | A.OFFPC_ITS ---
Vital Signs 05/07/25 10:24 Height 5 ft 5 in Weight 279 lb 2 oz BMI 46.4 BP 134/90 H Blood Pressure Location Lt brachial Position Sitting Respiration 16 Pulse 97 Pulse Source Pulse Oximeter Temp 97.5 F Temp Source Temporal Artery Scan Pulse Oximetry (%) 98 Oxygen Delivery Method Room Air Intake Visit Reasons: PE R/S from 04/30 Printer Operator Required: No Accompanied by: Mother Allergies peach (PEACH) Allergy (Severe, Verified 05/07/25 10:38) ANAPHYLAXIS Medication List - Last Reconciled 05/07/25 by Yao Hernandez PA-C albuterol sulfate 90 mcg/actuation 2 puffs inhalation Q6H PRN albuterol sulfate 2.5 mg (3 mL) inhalation Q4-6H PRN 30 days cholecalciferol (vitamin D3) 25 mcg PO DAILY 90 days clotrimazole-betamethasone 1-0.05 % 1 appl topical BID 30 days fluticasone propion-salmeterol 230-21 mcg/actuation (Advair HFA) 2 puffs inhalation BID 30 days fluticasone propionate 50 mcg/actuation 2 sprays intranasal DAILY PRN 30 days hydrocortisone 2.5% 1 appl topical BID PRN 30 days inhalational spacing device (Aerochamber Plus Flow-Vu) levalbuterol HCl 0.63 mg (3 mL) inhalation Q8H PRN 30 days loratadine (Allergy Relief (loratadine)) 10 mg PO DAILY 90 days Xopenex HFA 45 mcg/actuation (levalbuterol tartrate) 2 puffs inhalation Q4-6H PRN 30 days NS Tobacco use date assessed: 05/07/25 Dental Screening Dental Screen Date: 05/07/25 Did you have a dental visit in the last 12 months?: No Did you have a dental problem in the last 6 months where you did not have access to dental care?: No Was dental information given to patient?: Patient has dentist HPI PE R/S from 04/30 HPI Details Patient is a 24-year-old male here today for a routine annual physical. Patient has a past medical history significant for moderate persistent asthma and vitamin-D deficiency along with obesity. Will be starting full-time job next week. .. Asthma: He reports asthma has been better controlled with maintenance inhaler Advair and p.r.n. use Xopenex. He reports he has asthma since a child. His mother does report meconium aspiration during childbirth. .. Class 2 Obesity: Has a unfortunately gained weight since last office visit. He does understand his BMI is over 40 will try to work on being more physically active and adapt to better eating habits to reduce his weight. . Social anxiety: The patient reports experiencing anxiety, which manifests as a habit of biting his taste buds. He acknowledges this may be related to anxiety or obsessive- compulsive tendencies. He has been informed about potential treatments, including behavioral management and medication, but is hesitant about medication use. [facility] Medical History Tachycardia Seasonal allergies Asthma Family History Mother CAD (coronary artery disease), Onset Age: 55 Asthma Father DMII (diabetes mellitus, type 2) Social History (Updated 05/07/25 @ 10:42 by Yao Hernandez PA-C) Housing: House Alcohol intake: current Alcohol intake frequency: holidays/special occasions only Patient Tobacco Use Status: Never used Tobacco e-Cigarette/Vaping Use: Never Used Substance Use Type: Marijuana service: No Current occupational status: unemployed Cognitive needs: No Hearing needs: No Vision needs: No Questionnaire PHQ-9 Over the last 2 weeks, how often have you been bothered by any of the following problems? 1. Little interest or pleasure in doing things: more than half the days 2. Feeling down, depressed, or hopeless: not at all 3. Trouble falling or staying asleep, or sleeping too much: several days 4. Feeling tired or having little energy: more than half the days 5. Poor appetite or overeating: more than half the days 6. Feeling bad about yourself - or that you are a failure or have let yourself or your family down: several days 7. Trouble concentrating on things, such as reading the newspaper or watching television: several days 8. Moving or speaking so slowly that other people could have noticed. Or the opposite - being so fidgety or restless that you have been moving around a lot more than usual: several days 9. Thoughts that you would be better off or of hurting yourself in some way: more than half the days Total score: 12 Depression Screening Interpretation: Positive Depression Screening Follow-up: Existing condition and Declines treatment Depression Screening Done: Yes 68424 - PHQ-9 Billing: Yes Source: Developed by Drs. Noah Castro, Kirsty Stevenson, Rhett Waddell and colleagues, with an educational nicole from [employer]. Thrive Questionnaire Date Thrive assessed: 05/07/25 I am a: Patient What is your living situation today?: I have a steady place to live Within the past 12 months, did the food you bought not last and you didn't have the money to get more?: Never true Within the past 12 months, did you worry whether your food would run out before you got money to buy more?: Never true Do you have trouble paying for medicines?: No Do you have trouble getting transportation to medical appointments?: Yes Do you have trouble paying your heating and electricity bill?: No Do you have trouble taking care of your child, family member or friend?: No Do you have trouble with day-to-day activities such as bathing, preparing meals, shopping, managing finances, etc.?: No Are you currently unemployed and looking for a job?: Yes Are you interested in more education?: Yes Please select the resources that you would like help with: Transportation and Job search/training Currently or been in a relationship where the following occur: No concerns reported THRIVE Score: 1 AUDIT C Alcohol Use Questionnaire (AUDIT-C) 1. How often do you have a drink containing alcohol?: Never 3. How often do you have six or more drinks on one occasion?: Never Total Score: 0 CUCO-7 AMB Questionnaire CUCO-7 Date CUCO - 7 assessed: 05/07/25 Feeling nervous, anxious, or on edge: 2 = More than half the days Not being able to stop or control worryin = More than half the days Worrying too much about different things: 2 = More than half the days Trouble relaxin = Not at all Being so restless that it is hard to sit still: 2 = More than half the days Becoming easily annoyed or irritable: 2 = More than half the days Feeling afraid as if something awful might happen: 2 = More than half the days Total CUCO-7 score (0-4 normal; 5-9 mild; 10-14 moderate; 15-21 severe): 12 Source: Developed by Drs. Noah Castro, Kirsty Stevenson, Rhett Waddell and colleagues, with an educational nicole from [employer]. CUCO-7 Assessment Billing CUCO-7 Assessment Tool: CUCO-7 Assessment 06231 ACT Questionnaire In the past 4 weeks, how much of the time did your asthma keep you from getting as much done at work, school or at home?: None of the time During the past 4 weeks, how often have you had shortness of breath?: 1-2 times a week During the past 4 weeks, how often did your asthma symptoms wake you up at night or earlier than usual in the morning?: Once or twice per week During the past 4 weeks, how often have you had to use your rescue inhaler or nebulizer medication?: Once a week or less How would you rate your asthma control during the past 4 weeks?: Well controlled ACT Interpretation: Negative Score: 21 Review of Systems Const Denies body aches, Denies chills, Denies excessive sweating, Denies fatigue, Denies fever(s) and Denies headache(s) Eyes Denies blurry vision ENT Denies dysphagia, Denies vertigo, Denies dizziness, Denies headache(s), Denies hearing loss and Denies tinnitus Card Denies chest pain, Denies chest pain with activity, Denies syncope, Denies irregular heart rhythm and Denies dyspnea Resp Denies chest congestion, Denies cough, Denies hemoptysis, Denies dyspnea and Denies wheezing GI Denies abdominal pain, Denies melena, Denies hematochezia, Denies coffee ground emesis, Denies dysphagia, Denies diarrhea, Denies nausea and Denies vomiting Denies difficulty urinating, Denies dysuria, Denies urinary frequency, Denies urinary hesitancy and Denies urinary urgency Musc Denies arthralgias, Denies limited range of motion, Denies muscle cramps and Denies muscle weakness Skin/Breast Denies rash and Denies skin ulcer Neuro Denies Abnormal speech present, Denies confusion, Denies vertigo, Denies dizziness, Denies syncope, Denies headache(s), Denies memory loss and Denies seizure-like activity Psych Denies anxiety, Denies confusion, Denies depression, Denies memory loss, Denies panic attacks and Denies paranoia Endo Denies excessive sweating, Denies fatigue, Denies flushing, Denies polydipsia and Denies polyuria Aller/Immun Denies wheezing Physical exam (Primary Care) Vital Signs: Last Vital Signs Temp 97.5 F 05/07/25 10:24 Pulse 97 05/07/25 10:24 Resp 16 05/07/25 10:24 BP 134/90 H 05/07/25 10:24 Pulse Ox 98 05/07/25 10:24 Oxygen Delivery Method Room Air 05/07/25 10:24 BMI result Body Mass Index 46.4 BMI Assessment/Plan discussion: High BMI High, discussed plan: lifestyle, weight reduction, dietary and physical activity Tobacco/Smoking Status: Tobacco use Status Tobacco use date assessed 05/07/25 05/07/25 10:26 Patient Tobacco Use Status Never used Tobacco 05/07/25 10:26 e-Cigarette/Vaping Use Never Used 05/07/25 10:26 PHQ-9: PHQ-9 Score PHQ-9: Total score 12 05/07/25 10:29 Depression Screening Interpretation: Positive Depression Screening Follow-up: Existing condition and Declines treatment Thrive Assessment: Date of Thrive Assessment Date Thrive assessed 05/07/25 05/07/25 10:26 Currently or been in a relationship where the following occur: No concerns reported Const General: cooperative, comfortable, no acute distress, alert and awake; No confusion Orientation/consciousness: oriented to person, oriented to place, patient oriented x3 and No confusion HENMT Head: Yes normocephalic Ears: external ears normal and TM's normal bilaterally Face and sinus: No sinus tenderness Mouth: Normal oral and palatal mucosa present and tongue normal Teeth and gingiva: dentition normal and gingiva normal Throat: Yes posterior oropharynx normal, Yes tonsils normal and Yes uvula midline Eyes Conjunctivae: conjunctivae normal Sclerae: sclerae normal Pupils: Equal, round and reactive pupils present EOM: EOMs intact bilaterally Direct Ophthalmoscopy: No no photophobia Neck Neck: Yes no lymphadenopathy, No tender and Yes no JVD Thyroid: Thyroid normal Carotids: no bruits Chest Chest palpation & inspection: no tenderness Resp Effort & Inspection: normal respiratory effort, no audible wheezes, not labored and no stridor Auscultation: no crackles, no rales, no rhonchi and no wheezes Cardio Jugular venous distension: no JVD Rate: regular rate, not bradycardic and not tachycardic Rhythm: regular rhythm Bruits: no carotid bruits Peripheral pulses: Peripheral pulses 2+ throughout GI Inspection: Yes normal to inspection, No abdominal wall ecchymosis and No visible herniation Palpation (GI): Soft to palpation, nontender, no guarding, not rigid and No hepatosplenomegaly present Auscultation: normoactive bowel sounds General: Yes no CVA tenderness Back/Spine/Pelvis Back: no CVA tenderness and No back tenderness Cervical Spine: cervical ROM normal Thoracic/Lumbar Spine: thoracic and lumbar spine normal to inspection, straight leg raise negative bilaterally, No thoraco-lumbar ROM limited and No lumbar spinal tenderness Skin Lesions: no lesions Rashes: no rashes Wounds: no wounds Neuro General: oriented to person, oriented to place, patient oriented x3, CN's II-XI intact bilaterally and No confusion Cranial nerves: Yes Equal, round and reactive pupils present and Yes Normal accommodation reflex present Cognition (Neuro): normal cognition Speech: No Abnormal speech present Gait exam (Neuro): Normal gait present Motor exam (neuro): 5/5 motor strength present throughout Extrem Right upper extremity: full ROM; no cyanosis Left upper extremity: full ROM; no cyanosis Right lower extremity: no edema Left lower extremity: no edema Psych Appearance: grossly normal Mental Status: mental status grossly normal Affect: normal affect Attitude: cooperative Thought process: Normal thought process present Coding Level of Care Code Est Pt Prev Care 18-39y([id number]) Diagnoses Annual physical exam Z00.00 CUCO (generalized anxiety disorder) F41.1 Mild intermittent asthma, unspecified whether complicated J45.20 Asthma severity: mild Asthma persistence: intermittent Asthma complication type: unspecified Bilateral hand pain M79.641; M79.642 Class 3 obesity E66.813 Additional Codes CUCO-7 Assessment Billing - CUCO-7 Assessment Tool: CUCO-7 Assessment 53795 ([id number]) PHQ-9 - 14591 - PHQ-9 Billing: Yes ([id number]) Asthma Control Questionnaire - ACT Interpretation: Negative ([id number]) Assessment & Plan Assessment & Plan (1) Annual physical exam: Code(s): Z00.00 - Encounter for general adult medical examination without abnormal findings Category: Medical Plan: As per HPI (2) CUCO (generalized anxiety disorder): Code(s): F41.1 - Generalized anxiety disorder Category: Medical Plan: Patient continues to suffer from anxiety (3) Asthma: Code(s): J45.909 - Unspecified asthma, uncomplicated Category: Medical Qualifiers: Asthma severity: mild Asthma persistence: intermittent Asthma complication type: unspecified Qualified Code(s): J45.20 - Mild intermittent asthma, uncomplicated Plan: Patient reports his asthma is fairly well controlled with current dose of Levophed Adderall and daily use of his maintenance inhaler. He denies any nighttime awakenings with asthma symptoms or recent asthma exacerbations. (4) Bilateral hand pain: Code(s): M79.641 - Pain in right hand; M79.642 - Pain in left hand Category: Medical Plan: The patient experiences hand pain associated with dryness and cracking, and the use of hydrocortisone cream was noted. (5) Class 3 obesity: Code(s): E66.813 - Obesity, class 3 Category: Medical Plan: Patient does understand his BMI is over 40 will work on being more physically active and adapt to better eating habits to reduce his weight Orders: Orders Complete Blood Count no Diff Today Z13.1 - Encounter for screening for diabetes mellitus Vitamin D 25-OH Total Today E55.9 - Vitamin D deficiency, unspecified Comprehensive Electra. Panel Fast Today Z13.1 - Encounter for screening for diabetes mellitus XR Hand Bilat min 3v Today M79.641 - Pain in right hand, M79.642 - Pain in left hand Medications: Changed From fluticasone propionate 50 mcg/actuation 2 sprays intranasal DAILY 16 grams 0RF To fluticasone propionate 50 mcg/actuation 2 sprays intranasal DAILY PRN 16 grams 6RF nasal congestion 30 days Refilled fluticasone propion-salmeterol 230-21 mcg/actuation (Advair HFA) 2 puffs inhalation BID 12 grams 6RF 30 days J45.40 - Moderate persistent asthma, uncomplicated levalbuterol HCl 0.63 mg (3 mL) inhalation Q8H PRN 90 mL 3RF shortness of breath or wheezing 30 days J45.40 - Moderate persistent asthma, uncomplicated hydrocortisone 2.5% 1 appl topical BID PRN 30 grams 3RF itching 30 days E55.9 - Vitamin D deficiency, unspecified, L30.9 - Dermatitis, unspecified loratadine (Allergy Relief (loratadine)) 10 mg PO DAILY 90 tabs 2RF 90 days J45.40 - Moderate persistent asthma, uncomplicated albuterol sulfate 2.5 mg (3 mL) inhalation Q4-6H PRN 180 mL 0RF shortness of breath or wheezing 30 days J45.20 - Mild intermittent asthma, uncomplicated Xopenex HFA 45 mcg/actuation (levalbuterol tartrate) 2 puffs inhalation Q4-6H PRN 15 grams 6RF shortness of breath 30 days NS J30.2 - Other seasonal allergic rhinitis, J45.909 - Unspecified asthma, uncomplicated, R00.0 - Tachycardia, unspecified
[2025-05-07 10:24] VITALS: BP 134/90; PULSE 97; RESP 16; TEMP 36.4; O2SAT 98; BMI 46.4
--- OUTSIDE RECORDS SUMMARY | 2025-05-07 11:34 | XMS_ITS | Clinical Summary ---
Author Organization [facility] Address [address] [place], [place] [id number] Phone Care Team Providers Care Judicial Registrar Name Role Phone Unavailable Primary Care Provider Unavailabl e Allergies Active Allergy Reactions Criticality Noted Date Comments Food High 11/14/2017 Peaches Prunus Persica Medications Nebulizers (COMP AIR ELITE COMPACT NEB) misc COMP-AIR ELITE COMPRESSOR SYST; use as directed; 07/28/2016; Active 6 Active triamcinolone 0.1 % creamIndications :Irritant contact dermatitis due to other agents Apply topically 2 (two) times a day. 30 g 3 1 Active Benzoyl Peroxide 5.5 % gelIndications:F olliculitis Apply 1 application topically daily. 60 g 11 1 Active Additional Information Patient not taking.Reported on 12/31/2021 cromolyn 20 MG/2ML nebulizer solutionIndicati ons:Moderate persistent asthma without complication Take 2 mL (20 mg total) by nebulization 3 (three) times a day. 120 mL 3 2 Active fexofenadine ([facility]hon [facility]) 180 MG tabletIndication s:Chronic seasonal allergic rhinitis due to fungal spores Take 1 tablet (180 mg total) by mouth daily. 30 tablet 5 2 Active cholecalciferol 25 MCG (1000 UT) tabletIndication s:Morbid obesity with BMI of 40.0-44.9, adult 2 tabs daily 180 tablet 3 2 Active fluticasone 50 MCG/ACT nasal sprayIndications :Chronic seasonal allergic rhinitis due to pollen Administer 2 sprays into each nostril daily. 1 Units 11 2 Active Additional Information Patient not taking.Reported on 12/31/2021 fluticasone-salm eterol 230-21 MCG/ACT inhalerIndicatio ns:Severe persistent asthma without complication Inhale 2 puffs 2 (two) times a day. Rinse mouth with water after use, do not swallow. 12 g 11 2 Active albuterol 0.63 MG/3ML nebulizer solutionIndicati ons:Severe persistent asthma without complication Take 3 mL (0.63 mg total) by nebulization every 6 (six) hours as needed for wheezing. 50 mL 2 Active escitalopram (Lexapro) 10 MG tabletIndication s:Episode of recurrent major depressive disorder, unspecified depression episode severity Take 1 tablet (10 mg total) by mouth every morning. 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 Strongly suggested to him and his mom that he get vaccinated. Assessment & Plan (12/28/2021 1:09 PM EDT): Again, strongly urged Deacon and his mother to get vaccinated Assessment & Plan (08/11/2021 12:29 PM EST): I STRONGLY URGE YOU To get the Covid vaccine as you are at greater risk of severe illness or from covid because of your severe asthma and obesity. Assessment & Plan (07/08/2021 8:15 PM EDT): I do strongly urge you and mom to get vaccinated against Covid to protect yourselves and your children. Cognitive developmental delay 07/08/2021 Overview (12/28/2021): Definitely with troubles understanding. Does not drive. Mom comes to all visits. Assessment & Plan (12/28/2021 1:09 PM EDT): Continues dependent on mom for cares. Assessment & Plan (07/08/2021 8:21 PM EDT): Mom helps with care. Folliculitis 07/07/2021 Overview (12/28/2021): On inner thighs, better today Assessment & Plan (12/28/2021 1:07 PM EDT): Continue local care Assessment & Plan (07/07/2021 6:15 PM EDT): Use gels I've prescribed. Primary hypertension 07/07/2021 Overview (12/28/2021): Last few visits with high bp 08/08: Diastolicstill high. UA- no protein Need to refer, strongly consider STEP therapy 01/07: Continues with systolics at home>140, >90 here, is Step 2 HTN, exacerbated by obestity, ?sleep apnea. Assessment & Plan (12/31/2021 2:36 PM EDT): Is better today. Practice slow nasal breathing 5 breaths in, 5 breaths out, at least 3 times a day, at least 10 minutes at a time. Assessment & Plan (12/28/2021 1:06 PM EDT): Will get ECHO, EKG, and 24 hour BP., then start med. Discusssed with patient and mom. Assessment & Plan (08/11/2021 12:16 PM EST): 1. Continue to lose wt. 2. Have A low salt diet. 3. See Dr. Luciano. Assessment & Plan (07/07/2021 6:18 PM EDT): Needs to be rechecked. Called mom to check daily bp's and recheck in a few weeks. Benign mole 04/28/2021 Complex care coordination 12/17/2020 Overview (07/08/2021): Continues to need help in following asthma plan, and in f/u, now in f/u for high bp Assessment & Plan (12/17/2020 9:28 AM EDT): Spoke to her afterwards about Damián, at very high risk of continued depression, metabolic syndrome, including DM, and risk of from asthma. Need to continue to work on compliance with meds, wt loss. Episode of recurrent major depressive disorder 0 12/17/2020 Overview (12/31/2021): Clearly depressed with constitutional symptoms, affecting sleep. Has failed counseling. Not compliant with lexapro nor with self care. 01/07: Wants to take the lexapro again Assessment & Plan (12/31/2021 10:31 PM EDT): Will start lexapro again. Made warm handoff to Mounika Fuentes, who met with him. Assessment & Plan (12/28/2021 1:08 PM EDT): Continue to follow closely. Has consistently refused counseling. Assessment & Plan (08/11/2021 12:33 PM EST): Continue with your self care program, and talk with your mom. I am so glad you will be seeing one of our behavioral coaches Assessment & Plan (07/07/2021 10:23 AM EDT): You must take the lexapro, or not. You can not use it only as needed. I would restart it now. Assessment & Plan (04/28/2021 11:09 AM EDT): Begin lexapro. Will recheck in a few weeks. Assessment & Plan (01/15/2021 2:53 PM EDT): Doing well in counseling with Nellie. Family history of diabetes mellitus in father Overview (01/15/2021): Had DM with complications, of illness Assessment & Plan (08/23/2020 11:49 AM EST): Stressed need for weight loss. At least weight has stabilized. Refused influenza vaccine 07/24/2018 Overview (08/23/2020): Mom and he have refused the flu vaccine Assessment & Plan (12/28/2021 1:05 PM EDT): Urged to get Assessment & Plan (08/23/2020 11:46 AM EST): Urged to take the flu vaccine today, refused Grief reaction 07/25/2017 Overview (08/21/2020): Now grieving loss of father, remains buried with brother Assessment & Plan (12/31/2021 10:32 PM EDT): Is probably still an issue for him. Assessment & Plan (04/28/2021 5:57 PM EDT): Does not want to talk about it so talk therapy difficult. See below. Discussed his grieving. Also worried about brother, sister. Assessment & Plan (12/17/2020 9:28 AM EDT): Gave Warm handoff to Nellie, after discussing Case with her. Assessment & Plan (08/21/2020 12:24 PM EST): I suggest counseling Assessment & Plan (11/15/2017 1:37 PM EST): Need to follow, feel is affecting sleep Assessment & Plan (07/25/2017 11:27 AM EST): To tragic of brother, make sure to keep lines of communication open, talk with family, or me, we are always available. Allergic reaction stable Chronic seasonal allergic rhinitis due to fungal spores Made worse by exposure to vermin, dust, mold in apartment. I email the mayor, have tried health dept. Previously, landlord already served 1. Moderate persistent asthma without complication fluticasone-salmeterol 500-50 MCG/DOSE diskus inhaler, montelukast (SINGULAIR) 10 MG tablet 2. Mild intermittent asthma, unspecified whether complicated Peak flow, CANCELED: Peak flow 3. Grief reaction 4. Toxic effect of gas exposure, accidental or unintentional, subsequent encounter 5. Chronic seasonal allergic rhinitis due to fungal spores 6. Allergic reaction, subsequent encounter Chronic seasonal allergic rhinitis due to fungal spores 07/25/2017 Overview (12/28/2021): Has every Spring and Fall, may trigger asthma. 01/07 are bad now. Will start jhon, referred to driver/sales workers, may help with asthma Assessment & Plan (12/28/2021 1:10 PM EDT): Jhon begun. Hold flonase until no blood in sputum Assessment & Plan (04/28/2021 10:52 AM EDT): Continue flonase and claritin Assessment & Plan (01/15/2021 2:52 PM EDT): Make sure to take both Claritin AND flonase Assessment & Plan (10/18/2018 10:12 PM EST): Ok on meds Assessment & Plan (07/25/2017 11:27 AM EST): Made worse by exposure to vermin, dust, mold in apartment. I email the mayor, have tried health dept. Previously, [facility] already served Allergic reaction stable Chronic seasonal allergic rhinitis due to fungal spores Made worse by exposure to vermin, dust, mold in apartment. I email the mayor, have tried health dept. Previously, [facility] already served Grief reaction To tragic of brother, make sure to keep lines of communication open, talk with family, or me, we are always available. Allergic reaction stable Chronic seasonal allergic rhinitis due to fungal spores Made worse by exposure to vermin, dust, mold in apartment. I email the mayor, have tried health dept. Previously, [facility] already served 1. Moderate persistent asthma without complication fluticasone-salmeterol 500-50 MCG/DOSE diskus inhaler, montelukast (SINGULAIR) 10 MG tablet 2. Mild intermittent asthma, unspecified whether complicated Peak flow, CANCELED: Peak flow 3. Grief reaction 4. Toxic effect of gas exposure, accidental or unintentional, subsequent encounter 5. Chronic seasonal allergic rhinitis due to fungal spores 6. Allergic reaction, subsequent encounter 1. Moderate persistent asthma without complication fluticasone-salmeterol 500-50 MCG/DOSE diskus inhaler, montelukast (SINGULAIR) 10 MG tablet 2. Mild intermittent asthma, unspecified whether complicated Peak flow, CANCELED: Peak flow 3. Grief reaction 4. Toxic effect of gas exposure, accidental or unintentional, subsequent encounter 5. Chronic seasonal allergic rhinitis due to fungal spores 6. Allergic reaction, subsequent encounter Morbid obesity with BMI of 40.0-44.9, adult 08/12/2009 Overview (12/28/2021): Continued to gain wt for a long time, but since November,, has now lost 22 lbs! Still, may have sleep apnea. Assessment & Plan (12/28/2021 1:07 PM EDT): Has lost 10 more pounds. Keep up the good work Assessment & Plan (08/11/2021 12:30 PM EST): Good work again losing weight. Avoid that ramen though. See Flavia Villafana. Assessment & Plan (07/07/2021 10:20 AM EDT): Lose 3-4 lbs by next visit. Assessment & Plan (01/15/2021 2:53 PM EDT): Has lost two lbs, still 150 lbs overweight. Suggest seeing Flavia Villafana, [phone]. Continue eating lots of salads. Assessment & Plan (12/16/2020 12:06 PM EDT): Says has been stress eating. Will check for DM, lipids, etc. LA approach taken to losing weight, [facility] Assessment & Plan (08/21/2020 12:23 PM EST): Weight has stabilized, but you need to lose 100 pounds. Eat mainly fruits, vegetables, lean meats, eggs. Assessment & Plan (02/19/2020 3:05 PM EDT): Weight loss discussed, increase exercise, try the weight watchers. Assessment & Plan (12/19/2018 10:45 AM EDT): Has gained weight, make sure to eat better, especially at dad's Assessment & Plan (11/15/2017 1:36 PM EST): Significant, morbid, now with increased bp. Needs AEROBIC exercise daily as suggested before and [employer] diet, previously discussed Assessment & Plan (07/25/2017 11:28 AM EST): Improved! Has lost 10 lbs. Keep up the good work. Limit all fat, sugar. Join the Y Allergic reaction stable Chronic seasonal allergic rhinitis due to fungal spores Made worse by exposure to vermin, dust, mold in apartment. I email the mayor, have tried health dept. Previously, landlord already served Allergic reaction stable Chronic seasonal allergic rhinitis due to fungal spores Made worse by exposure to vermin, dust, mold in apartment. I email the mayor, [facility] Grief reaction To tragic of brother, make sure to keep lines of communication open, talk with family, or me, we are always available. Allergic reaction stable Chronic seasonal allergic rhinitis due to fungal spores Made worse by exposure to vermin, dust, mold in apartment. I email the [facility], have tried health dept. Previously, [facility] already served 1. Moderate persistent asthma without complication fluticasone-salmeterol 500-50 MCG/DOSE diskus inhaler, montelukast (SINGULAIR) 10 MG tablet 2. Mild intermittent asthma, unspecified whether complicated Peak flow, CANCELED: Peak flow 3. Grief reaction 4. Toxic effect of gas exposure, accidental or unintentional, subsequent encounter 5. Chronic seasonal allergic rhinitis due to fungal spores 6. Allergic reaction, subsequent encounter 1. Moderate persistent asthma without complication fluticasone-salmeterol 500-50 MCG/DOSE diskus inhaler, montelukast (SINGULAIR) 10 MG tablet 2. Mild intermittent asthma, unspecified whether complicated Peak flow, CANCELED: Peak flow 3. Grief reaction 4. Toxic effect of gas exposure, accidental or unintentional, subsequent encounter 5. Chronic seasonal allergic rhinitis due to fungal spores 6. Allergic reaction, subsequent encounter Grief reaction To tragic of brother, make sure to keep lines of communication open, talk with family, or me, we are always available. Allergic reaction stable Chronic seasonal allergic rhinitis due to fungal spores Made worse by exposure to vermin, dust, mold in apartment. I email the [facility], have tried health dept. Previously, [facility] already served 1. Moderate persistent asthma without complication fluticasone-salmeterol 500-50 MCG/DOSE diskus inhaler, montelukast (SINGULAIR) 10 MG tablet 2. Mild intermittent asthma, unspecified whether complicated Peak flow, CANCELED: Peak flow 3. Grief reaction 4. Toxic effect of gas exposure, accidental or unintentional, subsequent encounter 5. Chronic seasonal allergic rhinitis due to fungal spores 6. Allergic reaction, subsequent encounter Moderate persistent asthma without complication Not in good control, though peak flow is good, clear hear. Will increase advair to 500mcg, and add singulair, see me in one month. Allergic reaction stable Chronic seasonal allergic rhinitis due to fungal spores Made worse by exposure to vermin, dust, mold in apartment. I email the [facility] mes[facility], have tried health dept. Previously, [facility] already served Allergic reaction stable Chronic seasonal allergic rhinitis due to fungal spores Made worse by exposure to vermin, dust, mold in apartment. I email the [facility], have tried health dept. Previously, [facility] already served Grief reaction To tragic of brother, make sure to keep lines of communication open, talk with family, or me, we are always available. Allergic reaction stable Chronic seasonal allergic rhinitis due to fungal spores Made worse by exposure to vermin, dust, mold in apartment. I email the [facility] mes[facility], have tried health dept. Previously, [facility] already served 1. Moderate persistent asthma without complication fluticasone-salmeterol 500-50 MCG/DOSE diskus inhaler, montelukast (SINGULAIR) 10 MG tablet 2. Mild intermittent asthma, unspecified whether complicated Peak flow, CANCELED: Peak flow 3. Grief reaction 4. Toxic effect of gas exposure, accidental or unintentional, subsequent encounter 5. Chronic seasonal allergic rhinitis due to fungal spores 6. Allergic reaction, subsequent encounter 1. Moderate persistent asthma without complication fluticasone-salmeterol 500-50 MCG/DOSE diskus inhaler, montelukast (SINGULAIR) 10 MG tablet 2. Mild intermittent asthma, unspecified whether complicated Peak flow, CANCELED: Peak flow 3. Grief reaction 4. Toxic effect of gas exposure, accidental or unintentional, subsequent encounter 5. Chronic seasonal allergic rhinitis due to fungal spores 6. Allergic reaction, subsequent encounter Grief reaction To tragic of brother, make sure to keep lines of communication open, talk with family, or me, we are always available. Allergic reaction stable Chronic seasonal allergic rhinitis due to fungal spores Made worse by exposure to vermin, dust, mold in apartment. I email the [facility], [facility]. Moderate persistent asthma without complication fluticasone-salmeterol 500-50 MCG/DOSE diskus inhaler, montelukast (SINGULAIR) 10 MG tablet 2. Mild intermittent asthma, unspecified whether complicated Peak flow, CANCELED: Peak flow 3. Grief reaction 4. Toxic effect of gas exposure, accidental or unintentional, subsequent encounter 5. Chronic seasonal allergic rhinitis due to fungal spores 6. Allergic reaction, subsequent encounter 1. Moderate persistent asthma without complication fluticasone-salmeterol 500-50 MCG/DOSE diskus inhaler, montelukast (SINGULAIR) 10 MG tablet 2. Mild intermittent asthma, unspecified whether complicated Peak flow, CANCELED: Peak flow 3. Grief reaction 4. Toxic effect of gas exposure, accidental or unintentional, subsequent encounter 5. Chronic seasonal allergic rhinitis due to fungal spores 6. Allergic reaction, subsequent encounter 1. Moderate persistent asthma without complication fluticasone-salmeterol 500-50 MCG/DOSE diskus inhaler, montelukast (SINGULAIR) 10 MG tablet 2. Mild intermittent asthma, unspecified whether complicated Peak flow, CANCELED: Peak flow 3. Grief reaction 4. Toxic effect of gas exposure, accidental or unintentional, subsequent encounter 5. Chronic seasonal allergic rhinitis due to fungal spores 6. Allergic reaction, subsequent encounter Severe persistent asthma without complication Overview (12/28/2021): NOT in good control. Using albuterol daily for months! 12/2020: Now better, but using xopenex still several times a week, not using singular because mom 04/2021, Still with exacerbations, wheeze today, though not troubled by it. Mom against singular (says causes mental health problems) will refer to pulmonology. Told mom xopenex may not be covered. 07/08: major confusion over controller meds. Clarified. Need to get pulmonology note. 01/07: Again confusion: This time taking a stronger advair solution from infectious disease physician? No mention in note. Found her notes on [facility] and reviewed. No f/u arranged. Having an exacerbation now Assessment & Plan (12/31/2021 2:34 PM EDT): Is doing better, though still with some phlegm, is clear today. Continue controllers. Assessment & Plan (12/28/2021 1:05 PM EDT): Needs to restart cromolyn, take advair Assessment & Plan (08/11/2021 12:28 PM EST): REMEMBER TO TAKE YOUR ADVAIR TWICE A DAY. SET IT ON THE PHONE! Also take your cromolyn three times a day. Call me if you are using you albuterol more than 2-3 times/week. Assessment & Plan (04/28/2021 11:09 AM EDT): Wheezing again. Take xopenex. Refer to adult infectious disease physician. Assessment & Plan (01/15/2021 10:37 AM EDT): Begin Cromolyn TID because not taking singular Assessment & Plan (12/16/2020 12:04 PM EDT): Still not in good control, although only wheezing mildly. Ran out of controllers. Remember to always take them. Will ask Kasia Stewart and Eri to assit Assessment & Plan (08/23/2020 11:49 AM EST): Do NOT use your mom's meds. Take your xopenex as needed but you should hardly ever need it. Call me if you do! Take singular and Air duo daily ONLY. If needed, use xopenex, only as needed Called mom on cell phone in her car: Said she was not his taking the generic air duo, only the generic albuterol, says that only xopenex works well as rescue med. I told Damián and his mom directly that he could well and be buried next to his brother if he does not start taking his controller meds - Fluticasone- Salmeterol and Singulair - regularly and stop using his rescue meds every day. Assessment & Plan (08/04/2020 8:01 PM EST): 08/04/2020 (age 20yr): Asthma exacerbation today due to stopping contoller meds about 2 weeks ago. Possibly fall allergies are also a factor. Recent hospitalization for asthma last month. Will restart airduo today, low threshhold to give a 5 day steroid burst. Records from [facility] requested. ACT Score: 12 A score of 19 or less may indicate that asthma symptoms may not be as well controlled as they could be. Assessment & Plan (02/19/2020 3:00 PM EDT): Had one exacerbation necessitating ED visit, will come out of nowhere. Need to f/u carefully Assessment & Plan (11/18/2019 5:32 PM EST): Off all meds for awhile. Wheezing today Given albuterol updraft in office Refilled albuterol MDI with spacer Gave albuterol for updraft machine at home Pred 30 mg BID x 5 days Follow up with Dr Larry in 1 week - sooner as needed Tamiflu 75 mg 2 times per day x 5 day Assessment & Plan (12/21/2018 9:27 AM EDT): ACT=13, not doing well, though spirometry looking good, lots of night symptoms, will increase dosage of fluticason-salmeterol to 232 but has to remember to take it. Assessment & Plan (10/18/2018 10:12 PM EST): Exacerbation today, has been in good control, problems with coverage of meds In past, has side effects with albuterol Assessment & Plan (10/18/2018 8:19 PM EST): Cough and wheezing started today. Mom gave him xopenex a few hours ago at home but it did not seem to help. Pt is wheezing in the office. Yesterday mom tried to get refills and found fluticasone and xopenex are no longer covered by insurance. He just ran out of xopenex and has been out of fluticsone for a few weeks. I am not sure what controller medication is covered by pts insurance. xopenex updraft did not seem to change lung exam. Follow up tomorrow Assessment & Plan (06/21/2018 1:11 PM EDT): Is at high risk, though no ED visits, nor hospitalizations, frequent levalbuterol use, has not always been compliant, untreated prolonged grief over OD of brother. Assessment & Plan (11/15/2017 1:37 PM EST): Having trouble with the controllers he is on, still having symptoms, will email the mayor about the mice and cockroaches and sewage smell. Begin symbicort, stop advair Reassured mom about generics. Assessment & Plan (07/25/2017 11:27 AM EST): Not in good control, though peak flow is good, clear hear. Will increase advair to 500mcg, and add singulair, see me in one month. Allergic reaction stable Chronic seasonal allergic rhinitis due to fungal spores Made worse by exposure to vermin, dust, mold in apartment. I email the [facility], have tried health dept. Previously, [facility] already served Allergic reaction stable Chronic seasonal allergic rhinitis due to fungal spores Made worse by exposure to vermin, dust, mold in apartment. I email the [facility] mes[facility], have tried health dept. Previously, [facility] already served Grief reaction To tragic of brother, make sure to keep lines of communication open, talk with family, or me, we are always available. Allergic reaction stable Chronic seasonal allergic rhinitis due to fungal spores Made worse by exposure to vermin, dust, mold in apartment. I email the [facility] mes[facility], have tried health dept. Previously, [facility] already served 1. Moderate persistent asthma without complication fluticasone-salmeterol 500-50 MCG/DOSE diskus inhaler, montelukast (SINGULAIR) 10 MG tablet 2. Mild intermittent asthma, unspecified whether complicated Peak flow, CANCELED: Peak flow 3. Grief reaction 4. Toxic effect of gas exposure, accidental or unintentional, subsequent encounter 5. Chronic seasonal allergic rhinitis due to fungal spores 6. Allergic reaction, subsequent encounter 1. Moderate persistent asthma without complication fluticasone-salmeterol 500-50 MCG/DOSE diskus inhaler, montelukast (SINGULAIR) 10 MG tablet 2. Mild intermittent asthma, unspecified whether complicated Peak flow, CANCELED: Peak flow 3. Grief reaction 4. Toxic effect of gas exposure, accidental or unintentional, subsequent encounter 5. Chronic seasonal allergic rhinitis due to fungal spores 6. Allergic reaction, subsequent encounter Grief reaction To tragic of brother, make sure to keep lines of communication open, talk with family, or me, we are always available. Allergic reaction stable Chronic seasonal allergic rhinitis due to fungal spores Made worse by exposure to vermin, dust, mold in apartment. I email the mayor, have tried health dept. Previously, [facility] already served 1. Moderate persistent asthma without complication fluticasone-salmeterol 500-50 MCG/DOSE diskus inhaler, montelukast (SINGULAIR) 10 MG tablet 2. Mild intermittent asthma, unspecified whether complicated Peak flow, CANCELED: Peak flow 3. Grief reaction 4. Toxic effect of gas exposure, accidental or unintentional, subsequent encounter 5. Chronic seasonal allergic rhinitis due to fungal spores 6. Allergic reaction, subsequent encounter 1. Moderate persistent asthma without complication fluticasone-salmeterol 500-50 MCG/DOSE diskus inhaler, montelukast (SINGULAIR) 10 MG tablet 2. Mild intermittent asthma, unspecified whether complicated Peak flow, CANCELED: Peak flow 3. Grief reaction 4. Toxic effect of gas exposure, accidental or unintentional, subsequent encounter 5. Chronic seasonal allergic rhinitis due to fungal spores 6. Allergic reaction, subsequent encounter Resolved Problems Problem Noted Date Diagnosed Date Resolved Date Irritant contact dermatitis due to other agents 04/28/2021 12/28/2021 Overview (04/28/2021): Use cortisone cream for this tiny patch Assessment & Plan (08/11/2021 12:30 PM EST): See Yesenia in derm clinic Assessment & Plan (07/07/2021 10:20 AM EDT): Will increase to a stronger cream Borderline hypertension 11/14/2017 12/0 02/2020 Assessment & Plan (08/23/2020 11:50 AM EST): Better today. Assessment & Plan (10/18/2018 10:11 PM EST): Is borderline, take at [facility], record, need to recheck one -two months Assessment & Plan (11/14/2017 11:50 AM EST): Need to lose weight, go on a low sodium diet Toxic effect of gas exposure 07/25/2017 04/19/2018 Assessment & Plan (11/15/2017 1:37 PM EST): Talked to [facility], board of health did not return calls. Assessment & Plan (07/25/2017 11:29 AM EST): [employer] gas exacerbating symptoms. Will email the mail. Allergic reaction stable Chronic seasonal allergic rhinitis due to fungal spores Made worse by exposure to vermin, dust, mold in apartment. I email the [facility], have tried health dept. Previously, [facility] already served Allergic reaction stable Chronic seasonal allergic rhinitis due to fungal spores Made worse by exposure to vermin, dust, mold in apartment. I email the [facility], have tried health dept. Previously, [facility] already served Grief reaction To tragic of brother, make sure to keep lines of communication open, talk with family, or me, we are always available. Allergic reaction stable Chronic seasonal allergic rhinitis due to fungal spores Made worse by exposure to vermin, dust, mold in apartment. I email the [facility], have tried health dept. Previously, [facility] already served 1. Moderate persistent asthma without complication fluticasone-salmeterol 500-50 MCG/DOSE diskus inhaler, montelukast (SINGULAIR) 10 MG tablet 2. Mild intermittent asthma, unspecified whether complicated Peak flow, CANCELED: Peak flow 3. Grief reaction 4. Toxic effect of gas exposure, accidental or unintentional, subsequent encounter 5. Chronic seasonal allergic rhinitis due to fungal spores 6. Allergic reaction, subsequent encounter 1. Moderate persistent asthma without complication fluticasone-salmeterol 500-50 MCG/DOSE diskus inhaler, montelukast (SINGULAIR) 10 MG tablet 2. Mild intermittent asthma, unspecified whether complicated Peak flow, CANCELED: Peak flow 3. Grief reaction 4. Toxic effect of gas exposure, accidental or unintentional, subsequent encounter 5. Chronic seasonal allergic rhinitis due to fungal spores 6. Allergic reaction, subsequent encounter Grief reaction To tragic of brother, make sure to keep lines of communication open, talk with family, or me, we are always available. Allergic reaction stable Chronic seasonal allergic rhinitis due to fungal spores Made worse by exposure to vermin, dust, mold in apartment. I email the mayor, have tried health dept. Previously, landlord already served 1. Moderate persistent asthma without complication fluticasone-salmeterol 500-50 MCG/DOSE diskus inhaler, montelukast (SINGULAIR) 10 MG tablet 2. Mild intermittent asthma, unspecified whether complicated Peak flow, CANCELED: Peak flow 3. Grief reaction 4. Toxic effect of gas exposure, accidental or unintentional, subsequent encounter 5. Chronic seasonal allergic rhinitis due to fungal spores 6. Allergic reaction, subsequent encounter Moderate persistent asthma without complication Not in good control, though peak flow is good, clear hear. Will increase advair to 500mcg, and add singulair, see me in one month. Allergic reaction stable Chronic seasonal allergic rhinitis due to fungal spores Made worse by exposure to vermin, dust, mold in apartment. I email the mayor, [facility] health dept. [facility] Allergic reaction stable Chronic seasonal allergic rhinitis due to fungal spores Made worse by exposure to vermin, dust, mold in apartment. I email the mayor, have tried health dept. Previously, [facility] already served Grief reaction To tragic of brother, make sure to keep lines of communication open, talk with family, or me, we are always available. Allergic reaction stable Chronic seasonal allergic rhinitis due to fungal spores Made worse by exposure to vermin, dust, mold in apartment. I email the [facility], have tried health dept. Previously, landlord already served 1. Moderate persistent asthma without complication fluticasone-salmeterol 500-50 MCG/DOSE diskus inhaler, montelukast (SINGULAIR) 10 MG tablet 2. Mild intermittent asthma, unspecified whether complicated Peak flow, CANCELED: Peak flow 3. Grief reaction 4. Toxic effect of gas exposure, accidental or unintentional, subsequent encounter 5. Chronic seasonal allergic rhinitis due to fungal spores 6. Allergic reaction, subsequent encounter 1. Moderate persistent asthma without complication fluticasone-salmeterol 500-50 MCG/DOSE diskus inhaler, montelukast (SINGULAIR) 10 MG tablet 2. Mild intermittent asthma, unspecified whether complicated Peak flow, CANCELED: Peak flow 3. Grief reaction 4. Toxic effect of gas exposure, accidental or unintentional, subsequent encounter 5. Chronic seasonal allergic rhinitis due to fungal spores 6. Allergic reaction, subsequent encounter Grief reaction To tragic of brother, make sure to keep lines of communication open, talk with family, or me, we are always available. Allergic reaction stable Chronic seasonal allergic rhinitis due to fungal spores Made worse by exposure to vermin, dust, mold in apartment. I email the [facility], [facility]. Moderate persistent asthma without complication fluticasone-salmeterol 500-50 MCG/DOSE diskus inhaler, montelukast (SINGULAIR) 10 MG tablet 2. Mild intermittent asthma, unspecified whether complicated Peak flow, CANCELED: Peak flow 3. Grief reaction 4. Toxic effect of gas exposure, accidental or unintentional, subsequent encounter 5. Chronic seasonal allergic rhinitis due to fungal spores 6. Allergic reaction, subsequent encounter 1. Moderate persistent asthma without complication fluticasone-salmeterol 500-50 MCG/DOSE diskus inhaler, montelukast (SINGULAIR) 10 MG tablet 2. Mild intermittent asthma, unspecified whether complicated Peak flow, CANCELED: Peak flow 3. Grief reaction 4. Toxic effect of gas exposure, accidental or unintentional, subsequent encounter 5. Chronic seasonal allergic rhinitis due to fungal spores 6. 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 Has lost 10 lbs. Keep up the good work. Limit all fat, sugar. Join the [employer] Allergic reaction stable Chronic seasonal allergic rhinitis due to fungal spores Made worse by exposure to vermin, dust, mold in apartment. I email the mayor, [facility] health dept. [facility] Allergic reaction stable Chronic seasonal allergic rhinitis due to fungal spores Made worse by exposure to vermin, dust, mold in apartment. I email the [facility], have tried health dept. Previously, [facility] already served Grief reaction To tragic of brother, make sure to keep lines of communication open, talk with family, or me, we are always available. Allergic reaction stable Chronic seasonal allergic rhinitis due to fungal spores Made worse by exposure to vermin, dust, mold in apartment. I email the [facility], have tried health dept. Previously, [facility] already served 1. Moderate persistent asthma without complication fluticasone-salmeterol 500-50 MCG/DOSE diskus inhaler, montelukast (SINGULAIR) 10 MG tablet 2. Mild intermittent asthma, unspecified whether complicated Peak flow, CANCELED: Peak flow 3. Grief reaction 4. Toxic effect of gas exposure, accidental or unintentional, subsequent encounter 5. Chronic seasonal allergic rhinitis due to fungal spores 6. Allergic reaction, subsequent encounter 1. Moderate persistent asthma without complication fluticasone-salmeterol 500-50 MCG/DOSE diskus inhaler, montelukast (SINGULAIR) 10 MG tablet 2. Mild intermittent asthma, unspecified whether complicated Peak flow, CANCELED: Peak flow 3. Grief reaction 4. Toxic effect of gas exposure, accidental or unintentional, subsequent encounter 5. Chronic seasonal allergic rhinitis due to fungal spores 6. Allergic reaction, subsequent encounter Grief reaction To tragic of brother, make sure to keep lines of communication open, talk with family, or me, we are always available. Allergic reaction stable Chronic seasonal allergic rhinitis due to fungal spores Made worse by exposure to vermin, dust, mold in apartment. I email the [facility], have tried health dept. Previously, [facility] already served 1. Moderate persistent asthma without complication fluticasone-salmeterol 500-50 MCG/DOSE diskus inhaler, montelukast (SINGULAIR) 10 MG tablet 2. Mild intermittent asthma, unspecified whether complicated Peak flow, CANCELED: Peak flow 3. Grief reaction 4. Toxic effect of gas exposure, accidental or unintentional, subsequent encounter 5. Chronic seasonal allergic rhinitis due to fungal spores 6. Allergic reaction, subsequent encounter Moderate persistent asthma without complication Not in good control, though peak flow is good, clear hear. Will increase advair to 500mcg, and add singulair, see me in one month. Allergic reaction stable Chronic seasonal allergic rhinitis due to fungal spores Made worse by exposure to vermin, dust, mold in apartment. I email the [facility], have tried health dept. Previously, [facility] already served Allergic reaction stable Chronic seasonal allergic rhinitis due to fungal spores Made worse by exposure to vermin, dust, mold in apartment. I email the [facility], have tried health dept. Previously, [facility] already served Grief reaction To tragic of brother, make sure to keep lines of communication open, talk with family, or me, we are always available. Allergic reaction stable Chronic seasonal allergic rhinitis due to fungal spores Made worse by exposure to vermin, dust, mold in apartment. I email the [facility], have tried health dept. Previously, [facility] already served 1. Moderate persistent asthma without complication fluticasone-salmeterol 500-50 MCG/DOSE diskus inhaler, montelukast (SINGULAIR) 10 MG tablet 2. Mild intermittent asthma, unspecified whether complicated Peak flow, CANCELED: Peak flow 3. Grief reaction 4. Toxic effect of gas exposure, accidental or unintentional, subsequent encounter 5. Chronic seasonal allergic rhinitis due to fungal spores 6. Allergic reaction, subsequent encounter 1. Moderate persistent asthma without complication fluticasone-salmeterol 500-50 MCG/DOSE diskus inhaler, montelukast (SINGULAIR) 10 MG tablet 2. Mild intermittent asthma, unspecified whether complicated Peak flow, CANCELED: Peak flow 3. Grief reaction 4. Toxic effect of gas exposure, accidental or unintentional, subsequent encounter 5. Chronic seasonal allergic rhinitis due to fungal spores 6. Allergic reaction, subsequent encounter Grief reaction To tragic of brother, make sure to keep lines of communication open, talk with family, or me, we are always available. Allergic reaction stable Chronic seasonal allergic rhinitis due to fungal spores Made worse by exposure to vermin, dust, mold in apartment. I email the [facility], have tried health dept. Previously, [facility] already served 1. Moderate persistent asthma without complication fluticasone-salmeterol 500-50 MCG/DOSE diskus inhaler, montelukast (SINGULAIR) 10 MG tablet 2. Mild intermittent asthma, unspecified whether complicated Peak flow, CANCELED: Peak flow 3. Grief reaction 4. Toxic effect of gas exposure, accidental or unintentional, subsequent encounter 5. Chronic seasonal allergic rhinitis due to fungal spores 6. Allergic reaction, subsequent encounter 1. Moderate persistent asthma without complication fluticasone-salmeterol 500-50 MCG/DOSE diskus inhaler, montelukast (SINGULAIR) 10 MG tablet 2. Mild intermittent asthma, unspecified whether complicated Peak flow, CANCELED: Peak flow 3. Grief reaction 4. Toxic effect of gas exposure, accidental or unintentional, subsequent encounter 5. Chronic seasonal allergic rhinitis due to fungal spores 6. Allergic reaction, subsequent encounter 1. Moderate persistent asthma without complication fluticasone-salmeterol 500-50 MCG/DOSE diskus inhaler, montelukast (SINGULAIR) 10 MG tablet 2. Mild intermittent asthma, unspecified whether complicated Peak flow, CANCELED: Peak flow 3. Grief reaction 4. Toxic effect of gas exposure, accidental or unintentional, subsequent encounter 5. Chronic seasonal allergic rhinitis due to fungal spores 6. Allergic reaction, subsequent encounter 1. Moderate persistent asthma without complication fluticasone-salmeterol 500-50 MCG/DOSE diskus inhaler, montelukast (SINGULAIR) 10 MG tablet 2. Mild intermittent asthma, unspecified whether complicated Peak flow, CANCELED: Peak flow 3. Grief reaction 4. Toxic effect of gas exposure, accidental or unintentional, subsequent encounter 5. Chronic seasonal allergic rhinitis due to fungal spores 6. Allergic reaction, subsequent encounter 7. Obesity due to excess calories without serious comorbidity with body mass index (BMI) greater than 99th percentile for age in pediatric patient Allergic reaction 07/25/2017 12/28/2021 Overview (02/19/2020): To peaches - throat swells up. Assessment & Plan (02/19/2020 2:55 PM EDT): Has epi pen, has not used it in past year. Assessment & Plan (07/25/2017 11:25 AM EST): stable Immunizations Immunization Administration Dates Next Due DTaP 12/06/2001 DTaP 5 07/01/2004, 2,12/06/2001,03/28,2000,2000 HPV Vaccine 9 Valent 04/28/2021,02/19/2020 Hep A, ped/adol 02/20/2018,07/28/2016 Hep B, ped/adol 04/20/2001,2000,2000 Hib (PRP-T) 10/18/2001, 1,2000,09/21 IPV 07/01/2004, 1,03/28/2001,12/06,2000 Influenza Split 07/16/2010 Influenza, injectable, trivalent 009,06/24/2008,06/05/2007,08/03,07/06/2005,07/30/2003 MMR 07/01/2004,06/27/2001 Meningococcal B Trumenba 12/28/2021,02/19/2020 Meningococcal Conj (Menactra) MCV4P 11/24/2016,0 09/30/2013 Pneumococcal Conjugate 06/27/2001,2000,2000,11/08,2000 Pneumococcal Conjugate 13-Valent 2000 Pneumococcal Polysaccharide 07/07/2021 Td (adult) (Tenivac), 5 Lf t etanus toxoid, PF, adsorbed 07/07/2021 Tdap 09/30/2013 Typhoid, ViCPs 02/20/2018 Varicella 10/07/2014,06/27/2001 Family History Relation Name Status Comments Brother 1 Brother: Strabi smus/amblyopia, Asthma, Migraines, ADD/ADHD, Asthma Brother 2 Brother: Strabi smus/amblyopia, Asthma, Migraines, ADD/ADHD, Asthma Brother 3 Alive Brother: Strabi smus/amblyopia, Asthma, Migraines, ADD/ADHD, Asthma Brother 4 Alive Brother: Strabi smus/amblyopia, Asthma, Migraines, ADD/ADHD, Asthma Father Father: Stroke, Asthma, Diabetes mellitus Maternal Grandfather Materna l grandfather: Sudden /[place] under age 55 Mother Alive Mother: Elevate d cholesterol Sister 1 Sister: Migrain es, Asthma, Asthma, ADD/ADHD, Migraines Sister 2 Alive Sister: Migrain es, Asthma, Asthma, ADD/ADHD, Migraines Sister 3 Sister: Migrain es, Asthma, Asthma, ADD/ADHD, Migraines Sister 4 Alive Sister: Migrain es, Asthma, Asthma, ADD/ADHD, Migraines Sister 5 Sister: Migrain es, Asthma, Asthma, ADD/ADHD, Migraines Social History Tobacco Use Types Packs/Day Years Used Date Smoking Tobacco: Never Smokeless Tobacco: Never Comments:Never smoker Alcohol Use Standard Drinks/Week Comments No 0 (1 standard drink = 0.6 oz pur e alcohol) Hunger/Food Answer Date Recorded In the last 12 months, did y ou or your family ever eat less than you felt you should because there wasn't enough money for food? No 04/28/2021 Stable Housing Answer Date Recorded Are you worried that in the next 2 months you may not have stable housing? No 04/28/2021 Transportation Concerns Answer Date Rec orded In the last 12 months, have you or your family ever had to go without healthcare because you didn't have a way to get there? No 04/28/2021 Hazards in Home Answer Date Recorded Think about the place you li ve. Do you have problems with any of the following? Pests (mice or roaches), mold, no/not working smoke detectors, water leaks, no window guards. No 2020 Financing Utilities Answer Date Recorde d In the last 12 months, has t he electric, gas, oil, or water company threatened to shut off your services in your home? No 04/28/2021 Safety at Home Answer Date Recorded Are you or your family worried about feeling saf e in your home? No 04/28/2021 Outside Support Answer Date Recorded Do you feel that you need mo re support from other people or programs to help you care for yourself or your family? No 04/28/2021 Understanding Health Concerns Answer Da te Recorded Do you need help understandi ng your or your child's healthcare needs (diagnosis, medications, plan, etc.)? No 04/28/2021 Financing Health Concerns Answer Date R ecorded In the last 12 months, was t here a time when your child needed to see a doctor or get medications or supplies but could not because of cost? No 04/28/2021 Missing School or Work Answer Date Migue rded Did you or your child miss s chool or work because of a health problem that could have been avoided? No 04/28/2021 Sex and Gender Information Value Date Recorded Sex Assigned at Male 02/20/2020 3:29 PM EDT Legal Sex Male 5:22 PM EDT Gender Identity Male 02/20/2020 3:29 PM EDT Sexual Orientation Straight 02/19/2020 2: 39 PM EDT Last Filed Vital Signs Vital Sign Reading Time Taken Comments Blood Pressure 125/78 12/31/2021 1:33 PM EDT Pulse 73 12/31/2021 1:33 PM EDT Temperature 36.6 C (97.8 F) 12/31/2021 1:33 PM EDT Respiratory Rate 20 11/18/2019 5:12 PM EST Oxygen Saturation 98% 12/31/2021 1:33 PM EDT Inhaled Oxygen Concentration - - Weight 114 kg (252 lb 6.4 oz) 12/31/2021 1:33 PM EDT Height 163.2 cm (5' 4.25 ) 12/28/2021 10:44 AM E DT Body Mass Index 42.99 12/28/2021 10:44 AM EDT Plan of Treatment Health Maintenance Due Date Last Done Comments HPV Vaccines (3 - Male 3-dos e series) 07/21/2021 04/28/2021, 02/19/2020 COVID-19 Vaccine ( - 2023-2 5 season) 2024 Influenza Vaccines (#1) 2025 07/16/20 10, 09/09/2009, 06/24/2008, Additional history exists DTaP,Tdap,and Td Vaccines (8 - Td or Tdap) 07/07/2031 07/07/2021, 09/30/2013, 07/01/2004, Additional history exists Hepatitis B Vaccines Completed 04/20/2001, 2000, 2000 HIB Vaccines Completed 10/18/2001, 03/18, 2000, Additional history exists IPV Vaccines Completed 07/01/2004, 06/18, 03/28/2001, Additional history exists MMR Vaccines Completed 07/01/2004, 06/27/2001 Varicella Vaccines Completed 10/07/2014, 06/27/2001 Meningococcal Vaccine Completed 11/24/2016, 014 Hepatitis A Vaccines Completed 02/20/2018, 07/28/20 16 Pneumococcal Vaccine Completed 07/07/2021, 06/27/2001, 03/28/2001, Additional history exists Men B Vaccine Completed 12/28/2021, 02/19/2020
--- OUTSIDE RECORDS SUMMARY | 2025-05-07 11:34 | XMS_ITS | Clinical Summary ---
Author Organization [facility] Address [address] [place] [address] Care Team Providers Care Instrument Mechanic Name Role Phone Bindu Lopez MD Primary Care Provider Source Comments PLEASE NOTE, if this patient is a minor, it may be UNLAWFUL to discuss sensitive information that is contained in these records (such as FAMILY PLANNING, MENTAL HEALTH or SUBSTANCE ABUSE) with the minor patient's parent or other person without the patient's specific authorization.[facility] Allergies No known active allergies Medications fluticasone (FLOVENT HFA) 44 mcg/actuation inhalerIndication s:Asthma ([facility]) Inhale 2 Puffs into the lungs 2 (two) times daily. 1 Inhaler 0 10/22/19 15 Active levalbuterol (XOPENEX) 0.63 mg/3 mL nebulizer solutionIndicatio ns:Asthma ([facility]) Take 3 mL by nebulization every 6 (six) hours as needed for wheezing or shortness of breath. 24 mL 0 10/22/19 15 Active levalbuterol (XOPENEX HFA) 45 mcg/actuation inhalerIndication s:Asthma, mild intermittent, uncomplicated Inhale 1-2 Puffs into the lungs every 6 (six) hours as needed for shortness of breath or wheezing. 1 Inhaler 0 03/05/20 15 Active XOPENEX HFA 45 mcg/actuation inhalerIndication s:Asthma, mild persistent, uncomplicated INHALE 1 TO 2 PUFFS INTO THE LUNGS EVERY 6 HOURS NEEDED FOR SHORTNESS OF BREATH OR WHEEZING 15 g 0 03/06/20 15 Active Active Problems Problem Noted Date Diagnosed Date Asthma ([facility]) Overview (11/14/2014): Albuterol sulfate 108 Xopenex HFA, 0.31mg/3ml solution, 45mcg inhaler, Aleve Luride 2.2 chewable Fluticasone 50mcg nasal spray Immunizations Immunization Administration Dates Next Due DTAP (DAPTACEL),5 PERTUSSIS ANTIGENS ,01/09/2002,12/06/2001,03/28,2000 HEP B, PED/ADOL (YOGEAAL-A-CWQY/RECOMBIVAX-PEDS) 04/20/2001,2000,2000 Hib (PRP-T) 10/18/2001, 1,2000,09/21 INFLUENZA, SEASONAL, INJECTABLE 07/16/20 10,09/09/2009,06/24/2008,06/05,08/03/2006,07/06/2005,07/30/2003 IPV (IPOL) 07/01/2004, 1,03/28/2001,12/06,2000 MENINGOCOCCAL VACCINE,CONJUG ATE (NON-INTERFACE) 09/30/2013 MMR (MMR II/Priorix) 07/01/2004,06/27/2001 PNEUMOCOCCAL CONJUGATE PCV 13 06/27/2001 ,03/28/2001,2000,09/21 TDAP 09/30/2013 Varicella (Varivax), Live Vaccine 10/07/2014,06/2001 Social History Tobacco Use Types Packs/Day Years Used Date Smoking Tobacco: Never Smokeless Tobacco: Never Alcohol Use Standard Drinks/Week Comments No 0 (1 standard drink = 0.6 oz pur e alcohol) Social Connections Answer Date Recorded Connectedness 0 06/06/2024 Financial Resource Strain Answer Date R ecorded Financial Resource Strain 0 2022 Stress Answer Date Recorded Stress 0 12/09/2022 Physical Activity Answer Date Recorded Physical Activity 0 12/09/2022 Food Insecurity Answer Date Recorded Food 0 06/13/2024 Transportation Needs Answer Date Record ed Transportation 0 12/09/2022 Housing Stability Answer Date Recorded Housing 0 12/09/2022 Safety and Environment Answer Date Migue rded Safety 0 12/09/2022 Utilities Answer Date Recorded Utilities 0 12/09/2022 Employment Answer Date Recorded Stress 0 06/06/2024 Sex and Gender Information Value Date Recorded Sex Assigned at Not on file Legal Sex Male 11:07 AM PST Gender Identity Not on file Sexual Orientation Not on file Last Filed Vital Signs Vital Sign Reading Time Taken Comments Blood Pressure 128/82 10/22/2014 4:10 PM EST Pulse 88 10/22/2014 4:10 PM EST Temperature 36.7 C (98.1 F) 10/22/2014 4:10 PM EST Respiratory Rate 14 10/22/2014 4:10 PM EST Oxygen Saturation - - Inhaled Oxygen Concentration - - Weight 86.2 kg (190 lb) 10/22/2014 4:10 PM EST Height 160 cm (5' 3 ) 10/22/2014 4:10 PM EST Body Mass Index 33.66 10/22/2014 4:10 PM EST Plan of Treatment Health Maintenance Due Date Last Done Comments Anxiety Screening 2000 Hepatitis C Screening 2000 Tobacco Screening 2000 Imm-Pneumococcal (1 of 1 - P PSV23, PCV20, or PCV21) 2006 06/27/2001, 03/28/2001, 2000, Additional history exists HIV Screening 2015 Imm-HPV (1 - Male 3-dose series) 2015 Hypertension Screening (#1) 10/21/2017 Imm-DTaP/Tdap/Td (6 - Td or Tdap) 09/30/2023 09/30/2013, 07/01/2004, 01/09/2002, Additional history exists [id number] ( - season) 2024 Alcohol and Drug Screen 09/18/2024 10/22/2014 Depression Annual Screen 09/18/2024 10/22/2014 Imm-Influenza (#1) 2025 07/16/2010, 1 11/10/2008, 06/24/2008, Additional history exists Imm-Hepatitis B Completed 04/20/2001, 11/0 05/2000, 2000 Imm-Varicella Completed 10/07/2014, 06/27/2001 Insurance [facility] Care Teams Instrument Mechanic Relationship Specialty Start Date End Date Bindu Lopez MD [address] [place] [id number] PCP - General 06/04/18
== END 2025-05-07 11:06 | disposition home or self-care (01) ==
LOC: HO.HMCH 10:21
PROVIDERS: PCP Physician Assistant; Visit Provider Physician Assistant
DX: Z00.00 Encounter for general adult medical examination without abnormal findings (principal); F41.1 Generalized anxiety disorder; E66.813 Obesity, class 3; Z68.42 Body mass index [BMI] 45.0-49.9, adult; M79.641 Pain in right hand; M79.642 Pain in left hand; J45.20 Mild intermittent asthma, uncomplicated

== ENCOUNTER → 2025-05-07 10:20 | Outpatient (BNVA) | payer OTHER, SELFPAY | PROVIDERS: PCP Physician Assistant; Visit Provider Physician Assistant | DX: Z00.00 Encounter for general adult medical examination without abnormal findings (principal); E55.9 Vitamin D deficiency, unspecified; E66.812 Obesity, class 2; F41.1 Generalized anxiety disorder; J45.20 Mild intermittent asthma, uncomplicated; M79.641 Pain in right hand; M79.642 Pain in left hand; E66.813 Obesity, class 3; J30.2 Other seasonal allergic rhinitis; R00.0 Tachycardia, unspecified; Z68.42 Body mass index [BMI] 45.0-49.9, adult | CPT/HCPCS: 96127; 96160; 99395 ==

== ENCOUNTER 2025-05-08 10:17 | Outpatient (REF) | payer OTHER, SELFPAY ==
--- NOTE | ~2025-05-08 | XR_ITS ---
Exam: Three-view bilateral hand x-ray TECHNIQUE: AP, ball-catcher's, and lateral, bilateral hands INDICATION: M79.641 - Pain in right hand FINDINGS: Right hand: Joint spaces are preserved. There is no soft tissue swelling. There are no erosions. There are no osteophytes. Left hand: Joint spaces are preserved. There is no soft tissue swelling. There are no erosions. There are no osteophytes. XR/XR Hand Bilat min 3v Impression: Unremarkable bilateral hands. Electronically signed by: Bran Capone MD 05/08/2025 11:04 AM EDT
[2025-05-08 10:55] LABS: Hematocrit 43.8 % (42.0-52.0); Hemoglobin 14.3 g/dl (14.0-18.0); Mean Corpuscular HGB Conc 32.6 g/dl (31.0-36.0); Mean Corpuscular Hemoglobin 29.3 pg (27.0-33.0); Mean Corpuscular Volume 89.8 fL (80.0-98.0); NRBC Abs Auto 0.000 X10*3/uL (0.0-0.012); NRBC Pct Auto 0.0 /100WBC (0.0-0.2); Platelet Count 369 X10*3/uL (160-400); Red Blood Count 4.88 X10*6/uL (4.60-5.80); White Blood Count 8.7 X10*3/uL (4.8-10.8)
[2025-05-08 11:44] LABS: Alanine Aminotransferase 45 U/L (0-40); Albumin Level 4.6 g/dL (3.5-5.0); Alkaline Phosphatase 49 U/L (39-117); Anion Gap 12 (12-20); Aspartate Amino Transferase 28 U/L (5-37); Blood Urea Nitrogen 10 mg/dL (9-16); Calcium 9.4 mg/dL (8.4-10.2); Carbon Dioxide 27 mmol/L (22-29); Chloride 104 mmol/L (96-108); Estimated Glomerular Filt Rate > 60; Potassium 4.1 mmol/L (3.3-5.1); Sodium 139 mmol/L (135-145); Total Protein 7.6 g/dL (6.5-8.0)
--- OUTSIDE RECORDS SUMMARY | 2025-05-08 11:48 | XMS_ITS | Clinical Summary ---
Author Organization [facility] Address [address] [place] [address] Care Team Providers Care Crm Administrator Name Role Phone Bindu Lopez MD Primary Care Provider [phone] Source Comments PLEASE NOTE, if this patient is a minor, it may be UNLAWFUL to discuss sensitive information that is contained in these records (such as FAMILY PLANNING, MENTAL HEALTH or SUBSTANCE ABUSE) with the minor patient's parent or other person without the patient's specific authorization.[facility] Allergies No known active allergies Medications fluticasone (FLOVENT HFA) 44 mcg/actuation inhalerIndication s:Asthma ([facility]) Inhale 2 Puffs into the lungs 2 (two) times daily. 1 Inhaler 0 10/22/19 15 Active levalbuterol (XOPENEX) 0.63 mg/3 mL nebulizer solutionIndicatio ns:Asthma ([facility]) Take 3 mL by nebulization every [...] Problems Problem Noted Date Diagnosed Date Asthma ([facility]) Overview (11/14/2014): Albuterol sulfate 108 Xopenex HFA, 0.31mg/3ml solution, 45mcg inhaler, Aleve Luride 2.2 chewable Fluticasone 50mcg nasal spray Immunizations Immunization Administration Dates Next Due DTAP (DAPTACEL),5 PERTUSSIS ANTIGENS ,01/09/2002,12/06/2001,03/28,2000 HEP B, PED/ADOL (TQLSWHO-E-TSNJ/RECOMBIVAX-PEDS) 04/20/2001,2000,2000 Hib (PRP-T) 10/18/2001, 1,2000,09/21 INFLUENZA, SEASONAL, [...] 09/30/2023 09/30/2013, 07/01/2004, 01/09/2002, Additional history exists [id number] ( - season) 2024 Alcohol and Drug Screen 09/18/2024 10/22/2014 Depression Annual Screen 09/18/2024 10/22/2014 Imm-Influenza (#1) 2025 07/16/2010, 1 11/10/2008, 06/24/2008, Additional history exists Imm-Hepatitis B Completed 04/20/2001, 11/0 05/2000, 2000 Imm-Varicella Completed 10/07/2014, 06/27/2001 Insurance [facility] Care Teams Crm Administrator Relationship Specialty Start Date End Date Bindu Lopez MD [address] [place] [id number] PCP - General 06/04/18
--- OUTSIDE RECORDS SUMMARY | 2025-05-08 11:48 | XMS_ITS | Clinical Summary ---
Author Organization [facility] Address [address] [place], [place] [id number] Phone Care Team Providers Care Radiology Tech Name Role Phone Unavailable Primary Care Provider [...] bad now. Will start jhon, referred to department director, may help with asthma Assessment & Plan [...] the mayor, have tried health dept. Previously, [facility] already served Allergic reaction stable Chronic seasonal allergic rhinitis due to fungal spores Made worse by exposure to vermin, dust, mold in apartment. I email the mayor, have tried health dept. Previously, [facility] already served Grief reaction To tragic of brother, make sure to keep lines of communication open, talk with family, or me, we are always available. Allergic reaction stable Chronic seasonal allergic rhinitis due to fungal spores Made worse by exposure to vermin, dust, mold in apartment. I email the mayor, have tried health dept. Previously, [facility] already served 1. Moderate persistent asthma without [...] 150 lbs overweight. Suggest seeing Flavia Villafana, [phone]. Continue eating lots of salads. Assessment & Plan (12/16/2020 12:06 PM EDT): Says has been stress eating. Will check for DM, lipids, etc. [place] approach taken to losing weight, [facility] Assessment & Plan (08/21/2020 12:23 PM EST): [...] the mayor, [facility] Grief reaction To tragic of brother, make sure to keep lines of communication open, talk with family, or me, we are always available. Allergic reaction stable Chronic seasonal allergic rhinitis due to fungal spores Made worse by exposure to vermin, dust, mold in apartment. I email the [facility], have tried health dept. Previously, [facility] already served 1. Moderate persistent asthma without [...] dust, mold in apartment. I email the zebulonr, have tried health dept. Previously, [facility] already served 1. Moderate persistent asthma without [...] dust, mold in apartment. I email the zebulonr, have tried health dept. Previously, [facility] already served Allergic reaction stable Chronic seasonal allergic rhinitis due to fungal spores Made worse by exposure to vermin, dust, mold in apartment. I email the zebulonr, have tried health dept. Previously, [facility] already served Grief reaction To tragic of brother, make sure to keep lines of communication open, talk with family, or me, we are always available. Allergic reaction stable Chronic seasonal allergic rhinitis due to fungal spores Made worse by exposure to vermin, dust, mold in apartment. I email the zebulonr, have tried health dept. Previously, [facility] already served 1. Moderate persistent asthma without [...] dust, mold in apartment. I email the [facility]ulonr, [facility]. Moderate persistent asthma without [...] time taking a stronger advair solution from health workers? No mention in note. Found her notes [...] Wheezing again. Take xopenex. Refer to adult health workers. Assessment & Plan (01/15/2021 10:37 AM EDT): [...] a 5 day steroid burst. [facility] [place] [facility] [place]. ACT Score: 12 A score of [...] dust, mold in apartment. I email the zebulonr, have tried health dept. Previously, [facility] already served Allergic reaction stable Chronic seasonal allergic rhinitis due to fungal spores Made worse by exposure to vermin, dust, mold in apartment. I email the zebulonr, have tried health dept. Previously, [facility] already served Grief reaction To tragic of brother, make sure to keep lines of communication open, talk with family, or me, we are always available. Allergic reaction stable Chronic seasonal allergic rhinitis due to fungal spores Made worse by exposure to vermin, dust, mold in apartment. I email the [facility]ulonr, have tried health dept. Previously, [facility] already [...] the mayor, have tried health dept. Previously, [facility] already served 1. Moderate persistent asthma without [...] 10:11 PM EST): Is borderline, take at [facility], record, need to recheck one -two months Assessment & Plan (11/14/2017 11:50 AM EST): Need to lose weight, go on a low sodium diet Toxic effect of gas exposure 07/25/2017 04/19/2018 Assessment & Plan (11/15/2017 1:37 PM EST): Talked to [facility], board of health did not return calls. Assessment & Plan (07/25/2017 11:29 AM EST): Jigman gas exacerbating symptoms. Will email the mail. Allergic reaction stable Chronic seasonal allergic rhinitis due to fungal spores Made worse by exposure to vermin, dust, mold in apartment. I email the [facility], have tried health dept. Previously, [facility] already served Allergic reaction stable Chronic seasonal allergic rhinitis due to fungal spores Made worse by exposure to vermin, dust, mold in apartment. I email the [facility], have tried health dept. Previously, [facility] already served Grief reaction To tragic of brother, make sure to keep lines of communication open, talk with family, or me, we are always available. Allergic reaction stable Chronic seasonal allergic rhinitis due to fungal spores Made worse by exposure to vermin, dust, mold in apartment. I email the [facility], have tried health dept. Previously, [facility] already served 1. Moderate persistent asthma without [...] the mayor, [facility]. [facility] Allergic reaction stable Chronic [...] dust, mold in apartment. I email the zebulonr, have tried health dept. Previously, landlord already [...] dust, mold in apartment. I email the [facility]ul[facility]r, [facility]. Moderate persistent asthma [...] the mayor, [facility] Allergic reaction stable Chronic seasonal allergic rhinitis due to fungal spores Made worse by exposure to vermin, dust, mold in apartment. I email the [facility]ul[facility], have tried health dept. Previously, [facility] already served Grief reaction To tragic of brother, make sure to keep lines of communication open, talk with family, or me, we are always available. Allergic reaction stable Chronic seasonal allergic rhinitis due to fungal spores Made worse by exposure to vermin, dust, mold in apartment. I email the [facility], have tried health dept. Previously, [facility] already served 1. Moderate persistent asthma without [...] dust, mold in apartment. I email the [facility], have tried health dept. Previously, [facility] already served 1. Moderate persistent asthma without [...] dust, mold in apartment. I email the [facility], have tried health dept. Previously, [facility] already served Allergic reaction stable Chronic seasonal allergic rhinitis due to fungal spores Made worse by exposure to vermin, dust, mold in apartment. I email the [facility], have tried health dept. Previously, [facility] already served Grief reaction To tragic of brother, make sure to keep lines of communication open, talk with family, or me, we are always available. Allergic reaction stable Chronic seasonal allergic rhinitis due to fungal spores Made worse by exposure to vermin, dust, mold in apartment. I email the [facility]ul[facility], have tried health dept. Previously, [facility] already served 1. Moderate persistent asthma without [...] dust, mold in apartment. I email the zebulonr, have tried health dept. Previously, [facility] already served 1. Moderate persistent asthma without [...] mellitus Maternal Grandfather Materna l grandfather: Sudden /[place] under age 55 Mother Alive Mother: Elevate [...]
== END 2025-05-08 10:18 | disposition home or self-care (01) ==
LOC: HO.LAB 10:17
PROVIDERS: PCP Physician Assistant; Visit Provider Physician Assistant
DX: Z13.1 Encounter for screening for diabetes mellitus (principal); M79.641 Pain in right hand; M79.642 Pain in left hand; E55.9 Vitamin D deficiency, unspecified
CPT/HCPCS: 36415; 73130; 80053; 82306; 85027

== ENCOUNTER → 2025-05-08 10:38 | Outpatient (BNV) | payer OTHER, SELFPAY | PROVIDERS: PCP Physician Assistant; Visit Provider Radiology Diagnostic Radiology | DX: M79.641 Pain in right hand (principal) | CPT/HCPCS: 73130 ==